=== PATIENT | female | born 1935 | race Caucasian/White ===

== ENCOUNTER 2016-08-10 10:10 | Inpatient (IN) ==
[2016-08-10] MEDS ORDERED: Acetaminophen 325 MG TABLET PO PRN (22:02)
[2016-08-10] MEDS ORDERED: Albuterol 2.5 MG/3 ML NEBULIZER IH PRN (22:02)
[2016-08-10] MEDS ORDERED: MOM Conc 10 ML UD.LIQ PO ONE (22:09)
[2016-08-10] MEDS: Budesonide/Formoterol 80/4.5 MDI IH SCH (22:56)
[2016-08-11 05:33] LABS: Basophils # 0.1 K/mcL (0.0-0.2); Basophils % 0.7 %; Eosinophils # 0.4 K/mcL (0.0-0.6); Eosinophils % 2.6 %; Hemoglobin 10.9 g/dL (11.5-15.4); Immature Granulocytes % 0.4 % (0-4); Lymphocytes # 1.3 K/mcL (0.6-4.6); Lymphocytes % 9.1 %; Mean Corpuscular HGB Conc 34.1 g/dL (31.6-35.5); Mean Corpuscular Hemoglobin 29.1 pg (28.0-33.3); Mean Corpuscular Volume 85.6 fL (83.0-100.0); Mean Platelet Volume 9.8 fL (9.4-12.4); Monocytes # 1.3 K/mcL (0.0-1.3); Monocytes % 8.7 %; Neutrophils # 11.3 K/mcL (1.6-8.9); Platelet Count 432 K/mcL (140-400); Red Blood Count 3.74 M/mcL (3.82-4.97); Segmented Neutrophils % 78.5 %
[2016-08-11 05:41] LABS: Calcium 9.7 mg/dL (8.6-10.8); Potassium 4.2 mEq/L (3.5-4.5)
[2016-08-11] MEDS: Lisinopril 20 MG TABLET PO SCH (08:37)
[2016-08-11] MEDS: hydrALAZINE 25 MG TABLET PO SCH ×3 (08:37→21:02)
[2016-08-11] MEDS: Furosemide 40 MG TABLET PO SCH ×2 (08:37→16:05)
[2016-08-11] MEDS: Aspirin 81 MG TAB.CHEW PO SCH (08:37)
[2016-08-11] MEDS: Cholecalciferol (D-3) 1,000 UNIT TABLET PO SCH (08:37)
[2016-08-11] MEDS: amLODIPine 5 MG TABLET PO SCH (08:37)
[2016-08-11] MEDS: Venlafaxine XR (24 HR) 75 MG CAP.ER.24H PO SCH (08:37)
[2016-08-11] MEDS: BETHANECHOL 10 MG PO SCH ×3 (08:38→21:03)
[2016-08-11] MEDS: Budesonide/Formoterol 80/4.5 MDI IH SCH ×2 (08:39→21:03)
[2016-08-11 11:52] LABS: Bilirubin,Urine Negative (Negative); Blood,Urine Negative (Negative); Clarity,Urine Clear (Clear); Color,Urine Yellow (Yellow); Glucose,Urine (UA) Normal (Normal); Ketones,Urine Negative (Negative); Leukocyte Esterase,Urine Negative (Negative); Nitrite,Urine Negative (Negative); Protein,Urine 100 mg/dL (Neg-Trace); Urobilinogen,Urine Normal (Normal)
[2016-08-11 12:04] LABS: WBC,Urine 0-3 per hpf (0-3)
[2016-08-11 12:05] LABS: Bacteria,Urine Moderate per hpf (None-Few); Squamous Epithelial Cell,Urine Moderate per lpf (None-Few)
--- NOTE | 2016-08-11 16:19 | Internal Med History&Physical ---
Date of Encounter: 08/11/16 Time of Encounter: 16:10 Assessment and Plan (1) Abnormality of gait following cerebrovascular accident Current visit: Yes Status: Acute Patient is having gait abnormality, balance issues, cognitive dysfunction, diplopia from mid brain CVA. She is here for rehabilitation and consult PT, OT , RT, speech therapy, director of social work and Dr. Lowe. Currently she appears to be medically stable. We will continue monitoring her vitals, sugars. She is a tremendous fall risk because of her gait abnormality and she is very impulsive. Chair alarm, bed alarm etc. have been set (2) Internuclear ophthalmoplegia of right eye Current visit: Yes Status: Acute Right eye with medial gaze palsy. She complains of double vision in her central vision and to her left. She thinks it is showing improvement. The findings are relatively subtle on examination. 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 She did not know when she was admitted, she did not know the year, she did not know the season, etc. She did remember being at [facility] after some cueing. She did remember that she had a CVA but not much of a historian otherwise. We will have speech therapy evaluate her as well. We will have to be cognizant of safety issues and cueing considering her plans to go home (4) COPD (chronic obstructive pulmonary disease) Current visit: Yes Status: Acute She has severe COPD apparently is a continued tobacco user. She has hospice care at home apparently for for COPD. Currently her pulmonary status is stable. She is oxygen dependent. Qualifiers: COPD type: unspecified COPD Qualified Code(s): J44.9 - Chronic obstructive pulmonary disease, unspecified (5) Chronic kidney disease (CKD) Current visit: Yes Status: Acute She has mild chronic kidney disease, recent acute kidney injury. We will follow. We will watch her fluid intake. Qualifiers: Chronic kidney disease stage: stage 3 (moderate) Qualified Code(s): N18.3 - Chronic kidney disease, stage 3 (moderate) (6) Hypertension Current visit: Yes Status: Acute She has a long-standing history of hypertension, she had extreme elevated blood pressures when she had her CVA. Her pressures are now normalized with her current medical regimen. Hydralazine was added as well at [facility]. We will watch for orthostatic hypotension. Qualifiers: Hypertension type: essential hypertension Qualified Code(s): I10 - Essential (primary) hypertension (7) Diabetes mellitus Current visit: Yes Status: Acute She has a history of diabetes mellitus and takes metformin. That was not listed on her discharge information. We will monitor her sugars as right now as we do not know how well her intake will be. With her acute kidney injury we will hold metformin anyway. Qualifiers: Diabetes mellitus type: type 2 Diabetes mellitus complication status: with neurologic complications Diabetes mellitus complication detail: with other neurological complication Diabetes mellitus retirement insulin use: without paint and table edger use Qualified Code(s): E11.49 - Type 2 diabetes mellitus with other diabetic neurological complication (8) Urinary incontinence Current visit: Yes Status: Acute She has been having urinary incontinence, the nurse reports that the family states she had this at home as well. She came to us on bethanechol, I am concerned about potential side effects because of her age and recent CVA. We will monitor her, bladder scanning when necessary, frequent toileting etc. Qualifiers: Urinary Incontinence type: urinary incontinence without sensory awareness Qualified Code(s): N39.42 - Incontinence without sensory awareness (9) Anemia Current visit: Yes Status: Acute Her hemoglobin dropped 2 g from her baseline. We will monitor. No obvious source of hemorrhage, melena, hematochezia etc. Qualifiers: Anemia type: unspecified type Qualified Code(s): D64.9 - Anemia, unspecified (10) DVT prophylaxis Current visit: Yes Status: Acute Because she will be relatively confined to bed or chair at times, we will arrange Lovenox for DVT prophylaxis in addition to early ambulation and elastic stockings Internal Medicine - H&P: HPI Chief complaint: I am here to get stronger from my stroke Admitted From: Hospital to Hospital Transfer Plans for Post Hospital Care: Home History of present illness: Ms. Zendejas is a 80 year old female who lives at home, has [facility] because of end-stage COPD. Apparently she was well until a 08/01/16 when she had recurrent falling episodes at home and complaints of double vision and headache. She was evaluated in the emergency room and was found to have diplopia with involvement of the right medial rectus with inability for leftward gaze in the right eye. CT scan apparently was negative and she was sent to [facility] for further evaluation and neurological consultation. On MRI she was found to have a right mid brain ischemic area that was thought to be contributing to the right medial rectus palsy. From the records it appears that she had so much double vision and nausea and vertiginous symptoms that she could barely be evaluated. According to the records she had an echo with 65-70% ejection fraction with abnormal diastolic filling, carotids were 1-49%, hemoglobin A1c 5.6, lipid panel cholesterol 189, LDL 128. They started her on aspirin and Lipitor that was added to her usual regimen of medications. She was evaluated by ophthalmology who recommended an eye patch and possible prisms as an outpatient if her symptoms do not resolve. On arrival she had elevated blood pressure of 224/69 which improved with her home medications and the addition of hydralazine. She has some urinary retention and had straight catheter if greater than 400 mL and they started bethanechol. She had stage III CKD the creatinine 1.3. She has end-stage COPD and chronic respiratory failure and is on home oxygen. Apparently there is a history of chronic systolic congestive heart failure which is compensated and the continued her Lasix. She had fallen at home and had abrasions and bruises particular to the bilateral forearms, the right worse the left and painful right lateral rib area. She worked with physical therapy and needed assistance with ambulation, ADLs with dressing etc. Patient was transferred to our facility late on Saturday evening from [facility]. Patient is a poor historian and does not recall that she had been [facility] until reminded. She does not know the season nor the year. She thinks her double vision is getting improved. She denies any other major acute symptoms. Please see the review of systems below. Past Med Surg Social Fam HX - Past Medical History Medical history: CHF, COPD, coronary artery disease, CVA, diabetes, hyperlipidemia, hypertension Psychiatric history: anxiety, depression - Social History Smoking Status: Current every day smoker Smokeless Tobacco Status: No Alcohol use: none Drug use: none Current living situation: With Family, Other (She has [facility] due to her end-stage COPD) Activity Level: Independent ambulation (At home by history, now she is not independent) - Family History Mother History Unknown: Yes (Patient not reliable for history) Father History Unknown: Yes Internal Medicine - H&P: Meds Albuterol Neb [Proventil Neb] 2.5 mg IH Q4HR PRN 05/23/17 [History] Budesonide/Formoterol 80/4.5 [Symbicort 80/4.5] 0 gm IH BIDR 07/31/16 [History] Cholecalciferol (Vitamin D3) [Vitamin D] 400 unit PO DAILY 07/31/16 [History] Furosemide [Lasix] 80 mg PO BID 07/31/16 [History] LORazepam [Ativan] 0.5 mg PO TID PRN 07/31/16 [History] Lisinopril [Zestril] 40 mg PO DAILY 07/31/16 [History] Montelukast [Singulair] 10 mg PO DAILY 07/31/16 [History] Venlafaxine XR (24 HR) [Effexor XR] 75 mg PO DAILY 07/31/16 [History] amLODIPine [Norvasc] 10 mg PO DAILY 07/31/16 [History] Acetaminophen [Non-Aspirin] 650 mg PO Q4HR PRN 08/10/16 [History] Aspirin 81 mg PO DAILY 08/10/16 [History] Atorvastatin [Lipitor] 40 mg PO HS 08/10/16 [History] Bethanechol [Urecholine] 10 mg PO TID 08/10/16 [History] Metoprolol Tartrate 25 mg PO BID 08/10/16 [History] Polyethylene Glycol 3350 [MiraLAX Powder Bulk 17.9 Oz] 17 gm PO DAILY 08/10/16 [ History] hydrALAZINE [HydrALAZINE] 50 mg PO TID 08/10/16 [History] Allergies prednisone Allergy (Verified 08/10/16 21:44) See Comments - Constitutional Constitutional: falls (She had falling episodes at home and showed me healing ecchymotic areas and abrasions about each forearm.), no fever(s) - EENT Eyes: diplopia (She states that she has double vision seeing me straight in front of her and to her left, it seems appropriate to the right side. Overall she thinks it is getting better.) Ears: no decreased hearing, no ear discharge, no ear pain Nose, mouth and throat: no mouth pain, no sinus pain Additional comments: She is missing all but 2 teeth. She has dentures but does not wear them. - Cardiovascular Cardiovascular ROS IM: no chest pain, no dyspnea on exertion, no lightheadedness , no palpitations, no syncope - Respiratory Respiratory: dyspnea (She states she wears oxygen if she gets short of breath at home. (The family states she uses it 24 hours per day)), no cough, no wheezing - Gastrointestinal Gastrointestinal: no abdominal pain, no constipation, no diarrhea, no melena, no vomiting - Genitourinary Genitourinary: no dysuria, no hematuria Additional comments: Family reported to the nurse that she does have incontinence at home as well. - Musculoskeletal Musculoskeletal ROS IM: no arthralgias, no limited range of motion - Integumentary Additional comments: She showed me healing abrasions and scabs and ecchymosis to each forearm. - Neurological Additional comments: She complains of her double vision, but she states it is getting better. She denies any troubles with her gait, but obviously during examination she has a gait abdomen belly. - Psychiatric Psychiatric: no confusion, no depression Additional comments: She denies any memory loss but obviously she has deficits as in the H PI and physical examination - Constitutional Vitals: Temp Pulse Resp BP Pulse Ox 98.1 F 87 16 133/60 96 08/11/16 11:00 08/11/16 14:11 08/11/16 14:11 08/11/16 14:11 08/11/16 14:11 General appearance: Present: A&O X 2, obese. Absent: answers questions appropriately Exam: Patient was sitting in a chair watching TV. She does not know the season, the year, date of admission. - Head Head exam: Present: atraumatic - Eye Additional comments: Pupils are small bilaterally. She has a mild right medial rectus palsy with difficulty with right eye gaze to the left, she complains of double vision in her center and left vision she had mild nystagmus with the left eye on gaze testing - ENT Additional comments: Right TM is obscured with cerumen, left is normal - Neck Neck exam general surgery: Absent: lymphadenopathy, tenderness, thyromegaly Additional comments: I did not appreciate any bruits - Respiratory Additional comments: Intermittent large airway congestion sounds, otherwise lung quintana are diminished but clear. No crackles or rales. - Cardiovascular Cardiovascular exam: Present: RRR, +S1, +S2, systolic murmur (2/6 systolic murmur heard over the aortic valve region) - GI/Abdominal GI/Abdominal exam: Present: soft, no peritoneal signs. Absent: mass, splenomegaly, tenderness Additional comments: She had mild tenderness in the extreme right flank area and lower rib cage without crepitus or mass or guarding or rebound rigidity - Extremities Exam Extremities exam: Absent: calf tenderness, mottling, pedal edema - Neurological Exam Neurological exam: Present: abnormal gait (She has a very wide based unsteady gait when ambulated.), alert, strengths equal and symetr throughout. Absent: speech deficit Additional comments: Right eye with left gaze palsy consistent with medial rectus palsy. Diplopia reported at center vision and to her left side on gaze testing. Intermittently it appeared she had some nystagmus with the left eye on left gaze testing. Intermittently she had a mild tremor. She cannot recall her date with much hesitation. She thinks it is the fall instead of summer, she thinks it is 1913 instead of 2016, she did not know she was admitted to the hospital last night. She does recall her address. - Psychiatric Psychiatric exam: Present: normal affect, normal mood - Skin Additional comments: Scabbed abrasions and superficial lacerations of both forearms, the right worse than the left. Some minor bruising noted as well. Internal Med - H&P Results - Labs CBC & Chem 7: 08/11/16 05:20 08/11/16 05:20 Labs: Short CBC 08/11/16 Range/Units 05:20 WBC 14.4 H (4.3-11.1) K/mcL Hgb 10.9 L (11.5-15.4) g/dL Hct 32.0 L (35.3-44.9) % Plt Count 432 H (140-400) K/mcL Neutrophils # 11.3 H (1.6-8.9) K/mcL BMP 08/11/16 05:20 Sodium 137 Potassium 4.2 Chloride 98 Carbon Dioxide 26 BUN 59 H Creatinine 1.48 H Glucose 160 H Calcium 9.7 Urine 08/11/16 Range/Units 11:40 Urine Color Yellow (Yellow) Urine Clarity Clear (Clear) Urine pH 5.0 (5.0-8.0) pH Units Ur Specific [place] 1.010 (1.010-1.025) Urine Protein 100 H (Neg-Trace) mg/dL Urine Glucose (UA) Normal (Normal) mg/dL Labs have been reviewed with mild leukocytosis, mild anemia compared to her baseline and and worsening of her chronic kidney disease previous baseline was 1.3 at [facility]. She has proteinuria. Her last glycohemoglobin was 6.5%. - VTE Documentation of Mechanical Device: Graduated compression elastic hosiery
[2016-08-11] MEDS: *HR* LORazepam 0.5 MG TABLET PO PRN (21:03)
[2016-08-12] MEDS: *HR* Enoxaparin 30 MG/0.3 ML SYRINGE SQ SCH (06:22)
[2016-08-12] MEDS: Lisinopril 20 MG TABLET PO SCH (09:13)
[2016-08-12] MEDS: hydrALAZINE 25 MG TABLET PO SCH ×3 (09:13→20:36)
[2016-08-12] MEDS: amLODIPine 5 MG TABLET PO SCH (09:15)
[2016-08-12] MEDS: Aspirin 81 MG TAB.CHEW PO SCH (09:16)
[2016-08-12] MEDS: BETHANECHOL 10 MG PO SCH ×3 (09:16→20:37)
[2016-08-12] MEDS: Cholecalciferol (D-3) 1,000 UNIT TABLET PO SCH (09:16)
[2016-08-12] MEDS: Venlafaxine XR (24 HR) 75 MG CAP.ER.24H PO SCH (09:16)
[2016-08-12] MEDS: Furosemide 40 MG TABLET PO SCH ×2 (09:16→16:23)
[2016-08-12] MEDS: Budesonide/Formoterol 80/4.5 MDI IH SCH ×2 (09:17→20:37)
--- NOTE | 2016-08-12 13:39 | Internal Med Progress Note ---
Date of Encounter: 08/12/16 Time of Encounter: 13:26 - Assessment and plan (1) Abnormality of gait following cerebrovascular accident Current Visit: Yes Status: Acute Assessment and plan: She is needing constant reminders and assistance with ambulation. PT and OT resumes tomorrow. (2) Internuclear ophthalmoplegia of right eye Current Visit: Yes Status: Acute Assessment and plan: She denies any double vision now. It is hard to evaluate her visual quintana and range of motion of her eyes as she does not always follow commands. Her horizontal gaze today appears to be intact though. Decreased elevation of the right eye with upward gaze. No subjective symptoms of dizziness or problems. She was evaluated by manager pricing who suggested a patch until she is better, but she appears to be improving significantly. 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 It was reported from the daughter to the nurse yesterday that the severity of these is worse since her stroke. (4) COPD (chronic obstructive pulmonary disease) Current Visit: Yes Status: Acute Assessment and plan: I believe we need to be more aggressive with routine pulmonary toilet with nebulizer treatments 4 times a day and every 4 hours when necessary. The order was suggested. I do not think she needs a chest x-ray at this point yet. Qualifiers: COPD type: unspecified COPD Qualified Code(s): J44.9 - Chronic obstructive pulmonary disease, unspecified (5) Chronic kidney disease (CKD) Current Visit: Yes Status: Acute Assessment and plan: Follow-up renal function testing tomorrow. Qualifiers: Chronic kidney disease stage: stage 3 (moderate) Qualified Code(s): N18.3 - Chronic kidney disease, stage 3 (moderate) (6) Hypertension Current Visit: Yes Status: Acute Assessment and plan: She has had one elevated blood pressure reading in the 160 range systolic. We will continue to monitor. Qualifiers: Hypertension type: essential hypertension Qualified Code(s): I10 - Essential (primary) hypertension (7) Diabetes mellitus Current Visit: Yes Status: Acute Assessment and plan: Her sugars have been under reasonable control even without medication. We are holding her metformin because of her elevated creatinine and also not knowing how well she is going to eat. Her glycohemoglobin was reportedly 5.6% at [facility] and 6.5% recently tested here. Qualifiers: Diabetes mellitus type: type 2 Diabetes mellitus complication status: with neurologic complications Diabetes mellitus complication detail: with other neurological complication Diabetes mellitus termite exterminator insulin use: without prison use Qualified Code(s): E11.49 - Type 2 diabetes mellitus with other diabetic neurological complication (8) Urinary incontinence Current Visit: Yes Status: Acute Assessment and plan: During the daytime she is continent of urine. We will continue to monitor. Residual after voiding 116. Family reported she has had incontinence at home as well. Qualifiers: Urinary Incontinence type: urinary incontinence without sensory awareness Qualified Code(s): N39.42 - Incontinence without sensory awareness (9) Anemia Current Visit: Yes Status: Acute Assessment and plan: Follow-up CBC planned for tomorrow Qualifiers: Anemia type: unspecified type Qualified Code(s): D64.9 - Anemia, unspecified (10) DVT prophylaxis Current Visit: Yes Status: Acute - Subjective Interval history: Patient is voicing no acute symptoms, but she is also not a very good historian. The nurse reported that the patient had a bowel movement today, and then she was incontinent with a liquid stool on the second bowel movement and she could not get there in time. She has been incontinent of urine during the daytime so far today, but she frequently will forget to ask for help to get up in the bed alarm goes off. She was walked with her walker to the break room for breakfast and lunch. She relates with the walker she likes to lean her elbows on the walker rather than standing upright in the lots of cueing. When she goes to sit down she turns herself completely around before going down into the chair rather than a short quick easy turn and sit. She denies any vision problems/double vision currently. She denies a chest pain, palpitations, breathing problems. She really does not have any complaints right now, but I am not sure that she is cognitively aware either. She was incontinent in the night. Her bladder scan was 116 mL's after recent voiding - Constitutional Vitals: Temp Pulse Resp BP Pulse Ox 98.5 F 68 16 165/66 95 08/12/16 07:38 08/12/16 07:38 08/12/16 07:38 08/12/16 07:38 08/12/16 07:38 General appearance: Present: A&O X 2, no acute distress, obese. Absent: answers questions appropriately - Eye Additional comments: Her gaze appears to be conjugate horizontally. The right eye does not elevate well with upward gaze. It is difficult to evaluate as she does not always follow command of following my finger during testing. - Respiratory Additional comments: Large airway congested sounds scattered throughout. Slight intermittent wheezing. No localized crackles. - Cardiovascular Additional comments: Distant heart tones S1-S2 1/6 systolic murmur heard best over the aortic outlet. - GI/Abdominal GI/Abdominal exam: Present: soft. Absent: tenderness - Extremities Exam Extremities exam: Absent: calf tenderness, pedal edema, tenderness Internal Medicine: Result - Labs CBC & Chem 7: 08/11/16 05:20 08/11/16 05:20 - VTE Documentation of Mechanical Device: Graduated compression elastic hosiery Consult Discharge Plan - Plan Referrals: Jaren Coburn MD [Primary Care Provider] -
[2016-08-12] MEDS: Albuterol 2.5 MG/3 ML NEBULIZER IH SCH ×3 (13:42→20:36)
[2016-08-12] MEDS: *HR* LORazepam 0.5 MG TABLET PO PRN (20:36)
[2016-08-13 05:42] LABS: Basophils # 0.1 K/mcL (0.0-0.2); Basophils % 0.8 %; Eosinophils # 0.4 K/mcL (0.0-0.6); Eosinophils % 2.9 %; Hemoglobin 10.8 g/dL (11.5-15.4); Immature Granulocytes % 0.5 % (0-4); Lymphocytes # 1.8 K/mcL (0.6-4.6); Lymphocytes % 12.6 %; Mean Corpuscular HGB Conc 33.8 g/dL (31.6-35.5); Mean Corpuscular Hemoglobin 29.3 pg (28.0-33.3); Mean Corpuscular Volume 86.7 fL (83.0-100.0); Monocytes # 1.3 K/mcL (0.0-1.3); Monocytes % 9.3 %; Neutrophils # 10.5 K/mcL (1.6-8.9); Platelet Count 466 K/mcL (140-400); Red Blood Count 3.69 M/mcL (3.82-4.97); Red Cell Distribution Width 14.1 % (11.5-14.5); Segmented Neutrophils % 73.9 %
[2016-08-13 05:55] LABS: Calcium 9.3 mg/dL (8.6-10.8); Potassium 4.3 mEq/L (3.5-4.5)
[2016-08-13] MEDS: *HR* Enoxaparin 30 MG/0.3 ML SYRINGE SQ SCH (05:57)
--- NOTE | 2016-08-13 07:09 | Internal Med Progress Note ---
Date of Encounter: 08/13/16 Time of Encounter: 07:09 - Assessment and plan (1) Abnormality of gait following cerebrovascular accident Current Visit: Yes Status: Acute Assessment and plan: She will resume PT and OT today. The nursing staff thought that she is improved since her admission. She has on a bed alarm. She needs help with ambulation. (2) Internuclear ophthalmoplegia of right eye Current Visit: Yes Status: Acute Assessment and plan: I did not check her eyes today. She does not seem to have any complaints of dizziness or nausea. She is sleepy and not very cooperative early this morning. (3) Cognitive deficit due to recent cerebrovascular accident (CVA) Current Visit: Yes Status: Acute Assessment and plan: She has cognitive deficits, she does not know how many days she has been here, etc. I do not know what her baseline is, but family had told one of the nurses that this is worse than usual. She seems stable since admission. She needs lots of cueing and reminders. (4) COPD (chronic obstructive pulmonary disease) Current Visit: Yes Status: Acute Assessment and plan: She seems to have some large airway congestion, partially clears with deep breathing or cough. Because of her elevated white blood cell count and history of COPD I am going to get a chest x-ray to be sure she does not have pneumonia. Her saturations are adequate with wearing oxygen 24 hours per day. Qualifiers: COPD type: unspecified COPD Qualified Code(s): J44.9 - Chronic obstructive pulmonary disease, unspecified (5) Chronic kidney disease (CKD) Current Visit: Yes Status: Acute Assessment and plan: Chronic kidney disease with acute kidney injury. Her creatinine continues to rise. The nursing staff states she is taking plenty of water. We are avoiding nephrotoxins. She may need some IV fluids if this is prerenal. I suspect this is related to her initial insult and studies at [place]. I believe she was seen by nephrology there. Qualifiers: Chronic kidney disease stage: stage 3 (moderate) Qualified Code(s): N18.3 - Chronic kidney disease, stage 3 (moderate) (6) Hypertension Current Visit: Yes Status: Acute Assessment and plan: Intermittently her blood pressure is in the 150-160 range systolic, others are controlled. Will continue to monitor. Qualifiers: Hypertension type: essential hypertension Qualified Code(s): I10 - Essential (primary) hypertension (7) Diabetes mellitus Current Visit: Yes Status: Acute Assessment and plan: Her sugars are under reasonable control without medication. Her metformin has been held because of her renal function. She has had a good glycohemoglobin. Will follow. Qualifiers: Diabetes mellitus type: type 2 Diabetes mellitus complication status: with neurologic complications Diabetes mellitus complication detail: with other neurological complication Diabetes mellitus intermediate card tender insulin use: without shelter use Qualified Code(s): E11.49 - Type 2 diabetes mellitus with other diabetic neurological complication (8) Urinary incontinence Current Visit: Yes Status: Acute Assessment and plan: She continues with nighttime urinary incontinence. She is continent during the day. Apparently this is not a new problem. Qualifiers: Urinary Incontinence type: urinary incontinence without sensory awareness Qualified Code(s): N39.42 - Incontinence without sensory awareness (9) Anemia Current Visit: Yes Status: Acute Assessment and plan: She had a drop in hemoglobin when admitted, but is stable. No signs of hemorrhage. Will monitor. May be related to renal function. Qualifiers: Anemia type: unspecified type Qualified Code(s): D64.9 - Anemia, unspecified (10) DVT prophylaxis Current Visit: Yes Status: Acute - Subjective Interval history: Patient was awakened this morning, she denies any acute problems but she is slow to respond to questions. She denies any chest pain, palpitation, shortness of breath, abdominal pain. The nurses report that she was incontinent through the night of urine several times. They state she rested well though. Her blood sugars have been starting to go up a bit but was only 155 on fasting blood work this morning. Creatinine continues to rise. - Constitutional Vitals: Temp Pulse Resp BP Pulse Ox 98.9 F 74 20 124/51 91 08/12/16 19:21 08/12/16 19:21 08/12/16 19:21 08/12/16 19:21 08/12/16 19:21 General appearance: Present: A&O X 2, no acute distress, obese. Absent: answers questions appropriately Exam: She is sleepy and seems "stunned" this morning when we awoke her. She is in no distress, she is just not very interactive - Eye Additional comments: I did not evaluate her visual quintana or eyes this morning as she was sleepy and not very cooperative. She did not appear to be dizzy. - Respiratory Additional comments: Intermittent scattered mid lung field congested sounds, clears with deep breathing. She does have some audible crackles. Bases are diminished. No respiratory distress. Intermittent slight wheezes. - Cardiovascular Additional comments: Regular rate and rhythm. Distal heart tones S1, S2 with 1/6 systolic murmur. - GI/Abdominal GI/Abdominal exam: Present: soft. Absent: tenderness - Extremities Exam Extremities exam: Absent: calf tenderness, pedal edema Internal Medicine: Result - Labs CBC & Chem 7: 08/13/16 05:15 08/13/16 05:15 Labs: Short CBC 08/13/16 Range/Units 05:15 WBC 14.2 H (4.3-11.1) K/mcL Hgb 10.8 L (11.5-15.4) g/dL Hct 32.0 L (35.3-44.9) % Plt Count 466 H (140-400) K/mcL Neutrophils # 10.5 H (1.6-8.9) K/mcL BMP 08/13/16 05:15 Sodium 140 Potassium 4.3 Chloride 101 Carbon Dioxide 28 BUN 61 H Creatinine 1.72 H Glucose 155 H Calcium 9.3 Labs have been reviewed. White blood count still elevated in the 14,000 range. Hemoglobin is stable. Her creatinine however is rising to 1.7 to now. Glucose mildly elevated. - VTE Documentation of Mechanical Device: Graduated compression elastic hosiery Consult Discharge Plan - Plan Referrals: Jaren Coburn MD [Primary Care Provider] -
[2016-08-13] MEDS: Cholecalciferol (D-3) 1,000 UNIT TABLET PO SCH (08:45)
[2016-08-13] MEDS: Venlafaxine XR (24 HR) 75 MG CAP.ER.24H PO SCH (08:45)
[2016-08-13] MEDS: hydrALAZINE 25 MG TABLET PO SCH ×3 (08:45→19:59)
[2016-08-13] MEDS: Aspirin 81 MG TAB.CHEW PO SCH (08:45)
[2016-08-13] MEDS: amLODIPine 5 MG TABLET PO SCH (08:45)
[2016-08-13] MEDS: BETHANECHOL 10 MG PO SCH ×2 (08:46→15:17)
[2016-08-13] MEDS: Albuterol 2.5 MG/3 ML NEBULIZER IH SCH ×4 (08:46→19:58)
[2016-08-13] MEDS: Furosemide 40 MG TABLET PO SCH ×2 (08:46→16:47)
[2016-08-13] MEDS: Budesonide/Formoterol 80/4.5 MDI IH SCH ×2 (08:47→20:01)
[2016-08-13] MEDS: *HR* LORazepam 0.5 MG TABLET PO PRN (19:59)
[2016-08-14] MEDS: *HR* Enoxaparin 30 MG/0.3 ML SYRINGE SQ SCH (05:34)
[2016-08-14 05:43] LABS: Basophils # 0.1 K/mcL (0.0-0.2); Basophils % 0.6 %; Eosinophils # 0.5 K/mcL (0.0-0.6); Hematocrit 33.5 % (35.3-44.9); Hemoglobin 11.3 g/dL (11.5-15.4); Immature Granulocytes % 0.5 % (0-4); Lymphocytes # 2.1 K/mcL (0.6-4.6); Lymphocytes % 13.6 %; Mean Corpuscular HGB Conc 33.7 g/dL (31.6-35.5); Mean Corpuscular Hemoglobin 29.3 pg (28.0-33.3); Mean Corpuscular Volume 86.8 fL (83.0-100.0); Mean Platelet Volume 9.2 fL (9.4-12.4); Monocytes # 1.4 K/mcL (0.0-1.3); Monocytes % 9.2 %; Neutrophils # 11.3 K/mcL (1.6-8.9); Platelet Count 557 K/mcL (140-400); Red Blood Count 3.86 M/mcL (3.82-4.97); Red Cell Distribution Width 14.1 % (11.5-14.5); Segmented Neutrophils % 73.1 %
[2016-08-14 05:52] LABS: Calcium 9.5 mg/dL (8.6-10.8); Potassium 4.4 mEq/L (3.5-4.5)
[2016-08-14] MEDS: Aspirin 81 MG TAB.CHEW PO SCH (08:23)
[2016-08-14] MEDS: Furosemide 40 MG TABLET PO SCH ×2 (08:23→16:24)
[2016-08-14] MEDS: Cholecalciferol (D-3) 1,000 UNIT TABLET PO SCH (08:23)
[2016-08-14] MEDS: amLODIPine 5 MG TABLET PO SCH (08:23)
[2016-08-14] MEDS: Venlafaxine XR (24 HR) 75 MG CAP.ER.24H PO SCH (08:24)
[2016-08-14] MEDS: hydrALAZINE 25 MG TABLET PO SCH ×3 (08:24→20:29)
[2016-08-14] MEDS: Albuterol 2.5 MG/3 ML NEBULIZER IH SCH ×4 (08:25→20:28)
[2016-08-14] MEDS: Budesonide/Formoterol 80/4.5 MDI IH SCH ×2 (08:32→20:31)
--- NOTE | 2016-08-14 18:49 | Internal Med Progress Note ---
Date of Encounter: 08/14/16 Time of Encounter: 18:44 - Assessment and plan (1) Abnormality of gait following cerebrovascular accident Current Visit: Yes Status: Acute Assessment and plan: She appears to be improving based on my findings. Continue with PT and OT. PM& R/Dr. Lowe will see her tomorrow. (2) Internuclear ophthalmoplegia of right eye Current Visit: Yes Status: Acute Assessment and plan: Does not seem to complain of any dizziness, double vision, no obvious gaze abnormality on cursory exam. 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 I did not do a Mini-Mental Status Examination today. She has stayed awake longer today. She participated a lot in therapy. (4) COPD (chronic obstructive pulmonary disease) Current Visit: Yes Status: Acute Assessment and plan: Her COPD is stable and oxygen dependent. Saturations dropped to about 90 with exercise. Qualifiers: COPD type: unspecified COPD Qualified Code(s): J44.9 - Chronic obstructive pulmonary disease, unspecified (5) Chronic kidney disease (CKD) Current Visit: Yes Status: Acute Assessment and plan: Renal function is improving. We will follow. Qualifiers: Chronic kidney disease stage: stage 3 (moderate) Qualified Code(s): N18.3 - Chronic kidney disease, stage 3 (moderate) (6) Hypertension Current Visit: Yes Status: Acute Assessment and plan: Intermittently blood pressure is a bit elevated. No change in medication for now. Qualifiers: Hypertension type: essential hypertension Qualified Code(s): I10 - Essential (primary) hypertension (7) Diabetes mellitus Current Visit: Yes Status: Acute Assessment and plan: Her sugars have been adequately controlled without medication. We will continue to follow. Qualifiers: Diabetes mellitus type: type 2 Diabetes mellitus complication status: with neurologic complications Diabetes mellitus complication detail: with other neurological complication Diabetes mellitus longterm insulin use: without longterm use Qualified Code(s): E11.49 - Type 2 diabetes mellitus with other diabetic neurological complication (8) Urinary incontinence Current Visit: Yes Status: Acute Assessment and plan: Still has urinary incontinence at night, apparently this is chronic. Qualifiers: Urinary Incontinence type: urinary incontinence without sensory awareness Qualified Code(s): N39.42 - Incontinence without sensory awareness (9) Anemia Current Visit: Yes Status: Acute Assessment and plan: Hemoglobin improved. No active bleeding noted Qualifiers: Anemia type: unspecified type Qualified Code(s): D64.9 - Anemia, unspecified (10) Leukocytosis Current Visit: Yes Status: Acute Assessment and plan: Mild leukocytosis. No fever. She had negative urinalysis. She has had negative chest x-ray for signs of infection. Clinically she is doing better. We will continue to monitor for source of possible infection. Qualifiers: Leukocytosis type: unspecified Qualified Code(s): D72.829 - Elevated white blood cell count, unspecified (11) DVT prophylaxis Current Visit: Yes Status: Acute - Subjective Interval history: Patient denies any chest pain, palpitations, shortness of breath, she ate well tonight as she likes pot pies. She denies any GI or symptoms acutely. (She does continue with her urinary incontinence at night) She thinks she is getting stronger. She has no new symptoms or concerns that she is aware of - Constitutional Vitals: Temp Pulse Resp BP Pulse Ox 97.8 F 66 16 160/62 94 08/14/16 15:52 08/14/16 15:52 08/14/16 16:20 08/14/16 15:52 08/14/16 16:20 General appearance: Present: A&O X 2, no acute distress, obese - Respiratory Additional comments: Diminished breath sounds. Intermittent end expiratory wheeze. Overall sounds better than yesterday. No respiratory distress. - Cardiovascular Cardiovascular exam: Present: RRR, +S1, +S2, systolic murmur (1 to 2/6 systolic murmur) - GI/Abdominal GI/Abdominal exam: Present: soft. Absent: tenderness - Extremities Exam Extremities exam: Absent: calf tenderness, tenderness - Neurological Exam Additional comments: Patient ambulated with her walker to the door and back without hesitation. However on the turning she was a bit wide-based. When I had her stand without her walker at the bedside she was a bit wobbly. Overall much improved from Saturday. Internal Medicine: Result - Labs CBC & Chem 7: 08/14/16 05:30 08/14/16 05:30 Labs: Short CBC 08/14/16 Range/Units 05:30 WBC 15.5 H (4.3-11.1) K/mcL Hgb 11.3 L (11.5-15.4) g/dL Hct 33.5 L (35.3-44.9) % Plt Count 557 H (140-400) K/mcL Neutrophils # 11.3 H (1.6-8.9) K/mcL BMP 08/14/16 05:30 Sodium 141 Potassium 4.4 Chloride 101 Carbon Dioxide 29 BUN 50 H D Creatinine 1.53 H Glucose 143 H Calcium 9.5 White blood cell count is up from 14. Her renal function is improved. - VTE Documentation of Mechanical Device: Graduated compression elastic hosiery Consult Discharge Plan - Plan Referrals: Jaren Coburn MD [Primary Care Provider] -
[2016-08-14] MEDS: *HR* LORazepam 0.5 MG TABLET PO PRN (20:29)
[2016-08-15] MEDS: *HR* Enoxaparin 30 MG/0.3 ML SYRINGE SQ SCH (05:43)
[2016-08-15] MEDS: amLODIPine 5 MG TABLET PO SCH (09:47)
[2016-08-15] MEDS: Aspirin 81 MG TAB.CHEW PO SCH (09:47)
[2016-08-15] MEDS: Budesonide/Formoterol 80/4.5 MDI IH SCH ×2 (09:47→21:54)
[2016-08-15] MEDS: Venlafaxine XR (24 HR) 75 MG CAP.ER.24H PO SCH (09:47)
[2016-08-15] MEDS: hydrALAZINE 25 MG TABLET PO SCH ×2 (09:47→17:51)
[2016-08-15] MEDS: Furosemide 40 MG TABLET PO SCH ×2 (09:48→17:51)
[2016-08-15] MEDS: Albuterol 2.5 MG/3 ML NEBULIZER IH SCH ×4 (09:48→21:53)
[2016-08-15] MEDS: Cholecalciferol (D-3) 1,000 UNIT TABLET PO SCH (09:48)
--- NOTE | 2016-08-15 10:13 | Internal Med Progress Note ---
Date of Encounter: 08/15/16 Time of Encounter: 09:44 - Assessment and plan (1) Abnormality of gait following cerebrovascular accident Current Visit: Yes Status: Acute Assessment and plan: She appears be showing improvement at least based on my examination. She will continue with PT and OT. She will have evaluation by Dr. Lowe and Dr. Banks today (2) Internuclear ophthalmoplegia of right eye Current Visit: Yes Status: Acute Assessment and plan: Appears to be much improved and no history of double vision or dizziness now. 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 She will be seen by Dr. Banks today (4) COPD (chronic obstructive pulmonary disease) Current Visit: Yes Status: Acute Assessment and plan: Her COPD appears to be stable. Her lungs are clear significantly with a cough. No respiratory distress. Still is requiring oxygen. Qualifiers: COPD type: unspecified COPD Qualified Code(s): J44.9 - Chronic obstructive pulmonary disease, unspecified (5) Chronic kidney disease (CKD) Current Visit: Yes Status: Acute Assessment and plan: Has shown improvement. Follow-up order for tomorrow. Qualifiers: Chronic kidney disease stage: stage 3 (moderate) Qualified Code(s): N18.3 - Chronic kidney disease, stage 3 (moderate) (6) Hypertension Current Visit: Yes Status: Acute Assessment and plan: Under relatively good control. Occasionally her pressure will be up in the 160 systolic range then back down again. We will continue to monitor. Qualifiers: Hypertension type: essential hypertension Qualified Code(s): I10 - Essential (primary) hypertension (7) Diabetes mellitus Current Visit: Yes Status: Acute Assessment and plan: On occasion her sugar has had 200. Generally in the 130s to 150s. This is with no medication. Previously she was on metformin. That has been held because of her renal function and her excellent glycohemoglobin. Qualifiers: Diabetes mellitus type: type 2 Diabetes mellitus complication status: with neurologic complications Diabetes mellitus complication detail: with other neurological complication Diabetes mellitus petroleum terminal plant operator insulin use: without petroleum terminal plant operator use Qualified Code(s): E11.49 - Type 2 diabetes mellitus with other diabetic neurological complication (8) Urinary incontinence Current Visit: Yes Status: Acute Assessment and plan: She is incontinent of urine at nighttime. This is an old problem. Apparently she has been on medication in the past which really did not help. We are trying frequent toileting. Qualifiers: Urinary Incontinence type: urinary incontinence without sensory awareness Qualified Code(s): N39.42 - Incontinence without sensory awareness (9) Anemia Current Visit: Yes Status: Acute Assessment and plan: Hemoglobin has improved. We will recheck tomorrow. Qualifiers: Anemia type: unspecified type Qualified Code(s): D64.9 - Anemia, unspecified (10) Leukocytosis Current Visit: Yes Status: Acute Assessment and plan: She has had mild leukocytosis without obvious source of infection. Follow-up tomorrow. Consideration for CT scan of the lungs but she is not having any fever, increasing pulmonary symptoms or worsening chest x-ray. No skin breakdown issues. Qualifiers: Leukocytosis type: unspecified Qualified Code(s): D72.829 - Elevated white blood cell count, unspecified (11) DVT prophylaxis Current Visit: Yes Status: Acute - Subjective Interval history: Patient denies any acute symptoms. She denies any chest pain, palpitation, shortness of breath. When asked, she thinks her double vision is gone and her vision is okay. She denies having dizzy episodes now. I had a conversation with her daughter last night via phone. She states her mother had the urinary incontinence at home despite use of medication. That does not seem to be any different with or without medication. But she does state that her mother is saying strange things, not remembering things, not being as spontaneous and she was in the past. She had a slow drop off appropriate for age cognitively before, but after the stroke there is been a definite step decline. She realizes that her mother cannot go home. She states that her mother was helping take care of the son who is at home and therefore she is given need 24 hour care. I certainly agree. Daughter is coming in this afternoon to talk with staff and social services analyst regarding placement issues. - Constitutional Vitals: Temp Pulse Resp BP Pulse Ox 98.6 F 81 18 100/55 94 08/15/16 07:15 08/15/16 07:15 08/15/16 07:15 08/15/16 07:15 08/15/16 07:15 General appearance: Present: A&O X 2, no acute distress, obese. Absent: answers questions appropriately - Respiratory Additional comments: She has diminished breath sounds throughout. She had scattered rhonchi and end expiratory wheeze during her respiratory treatment, with a cough these nearly all cleared. She has no respiratory distress. She is still requiring oxygen 24 hours per day though. - Cardiovascular Cardiovascular exam: Present: RRR, +S1, +S2, systolic murmur (2/6 systolic murmur heard best at the outlet.) - Extremities Exam Extremities exam: Absent: calf tenderness, pedal edema - Neurological Exam Additional comments: Her extraocular movements appear to be conjugate except for the extreme left lateral gaze and upward gaze there appears to be slight deficit in the right eye. She denies any dizziness or double vision. She was able to get out of a chair, she ambulated 10 feet or so with a walker. She was slow to make the turn but did not have any imbalance problems. She was able stand without holding onto the walker without any drifting today. Cognitively she does not have much in way of spontaneous interaction. She is not reliable on her answers to questions. Internal Medicine: Result - Labs CBC & Chem 7: 08/14/16 05:30 08/14/16 05:30 - VTE Documentation of Mechanical Device: Graduated compression elastic hosiery Consult Discharge Plan - Plan Referrals: Jaren Coburn MD [Primary Care Provider] -
--- NOTE | 2016-08-15 14:50 | Psychological Evaluation ---
Date of Encounter: 08/15/16 Time of Encounter: 11:00 History of Present Illness History of present illness: Ms. Zendejas is a 80 year old female admitted to [facility] for inpatient rehabilitation following a recent CVA. Ms. Zendejas was living at her home with hospice care for end stage COPD prior to this hospitalization. She was seen on this date to assess her current cognitive and emotional functioning. Past Medical History Medical history: Significant for COPD, chronic kidney disease, HTN, diabetes, CHF, coronary artery disease and hyperlipidemia. - Psychiatric History Additional Psychiatric History: Ms. Zendejas reported that she has been treated for anxiety and depression. There is no history of psychiatric hospitalization and no history of suicidal ideation, intention or past attempt. There is no known family history of psychiatric or mental health issues. Home Medications and Allergies Albuterol Neb [Proventil Neb] 2.5 mg IH Q4HR PRN 07/31/16 [History] Budesonide/Formoterol 80/4.5 [Symbicort 80/4.5] 0 gm IH BIDR 07/31/16 [History] Cholecalciferol (Vitamin D3) [Vitamin D] 400 unit PO DAILY 07/31/16 [History] Furosemide [Lasix] 80 mg PO BID 07/31/16 [History] LORazepam [Ativan] 0.5 mg PO TID PRN 07/31/16 [History] Lisinopril [Zestril] 40 mg PO DAILY 07/31/16 [History] Montelukast [Singulair] 10 mg PO DAILY 07/31/16 [History] Venlafaxine XR (24 HR) [Effexor XR] 75 mg PO DAILY 07/31/16 [History] amLODIPine [Norvasc] 10 mg PO DAILY 07/31/16 [History] Acetaminophen [Non-Aspirin] 650 mg PO Q4HR PRN 08/10/16 [History] Aspirin 81 mg PO DAILY 08/10/16 [History] Atorvastatin [Lipitor] 40 mg PO HS 08/10/16 [History] Bethanechol [Urecholine] 10 mg PO TID 08/10/16 [History] Metoprolol Tartrate 25 mg PO BID 08/10/16 [History] Polyethylene Glycol 3350 [MiraLAX Powder Bulk 17.9 Oz] 17 gm PO DAILY 08/10/16 [ History] hydrALAZINE [HydrALAZINE] 50 mg PO TID 08/10/16 [History] Allergies prednisone Allergy (Verified 08/10/16 21:44) See Comments Social History - Social History Social History: Ms. Zendejas is a (since 2012) after 27 years of marriage to her second . She had 5 children but stated that only one son and one daughter are alive at this time. Her son lives with her and she reported that he is disabled due to balance/gait issues. Her social support system consists of two friends. 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 She also stated that she was not afraid of taking risks and has jumped out of planes with a parachute. Prior to this admission, her typical day consisted of washing dishes, watching TV, reading and preparing dinner. - Tobacco Use Smoking Status: Current every day smoker - Alcohol Use Alcohol Use: none Cognitive/Emotional Assessment - Cognitive Ability Additional Findings: Ms. Zendejas was alert, attentive and partially oriented. She was oriented for person and place but not time (gave the month as June or July and could not guess/provide a date). Performance on measures of immediate recall, attention/ concentration, sentence repetition and confrontational naming were in the average range. She was able to perform 2-step complex command and verbal reasoning and social judgment were within normal limits. On a measure of delayed verbal recall, she performed in the moderately impaired range. Her performance was improved using multiple choice (recognition cues) but she stated that she did not recognize any of the words and was simply guessing. - Emotional Status Additional Findings: Ms. Zendejas was cooperative but presented as somewhat irritable and defensive. She asked about the purpose/necessity of this evaluation and when it was explained, she acknowledged that she feels her intelligence is being questioned. She reported that people are not "treating me right" and "are not explaining what is going on". Mood appeared depressed. She reported a poor appetite and that her sleep has been disrupted by nursing staff awakening her during the night. 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 Zendejas will be followed as needed while she is an inpatient at [facility] to provide emotional supportive counseling. Procedures - Session Time Session Start Time: 11:00 Session Stop Time: 11:30
--- NOTE | 2016-08-15 15:09 | Physcial Medicine-Consult Note ---
Date of Encounter: 08/16/16 Time of Encounter: 15:06 Physical Medicine - AP (1) CVA (cerebral vascular accident) Status: Acute Assessment and plan: 1. Ms. Zendejas's primary barriers at this time are due to her cognitive deficits. She has significant issues with short and mcc recall. She has prolonged processing time to perform new tasks which also impairs her functional ability. She has made improvement in her functional status and is currentlu ambulating 100 feet with CGA. She has poor safety awareness. She is currently mod A for lower body dressing and ADLs. She will continue with PT/OT/ ST/TR to continue to address issues with safety and cognition. Recommend 24 hour supervision at discharge. Code(s): I63.9 - Cerebral infarction, unspecified SNOMED Code(s): 964279928 Physical Medicine - HPI - Data of Consult Consult date: 08/15/16 Requesting Physician: Jaren Coburn MD Primary Care Provider: Jaren Coburn MD - Consult Narrative Reason for consult: CVA History of present illness: Ms. Zendejas is a 80 year old female who presented to the ED with complaints of falls, double vision and headache. An intial head CT was negative. She was transferred to [facility] and was found to be suffering from severe vertigo with nausea and vomiting. Initial evaluation revealed diplopia in the right eye with leftward gaze. An mri of her brain was performed which revealed an area of mid brain ischemia. She was stabilized and transferred for inpatient rehabilitation. Patient was previously at home with hospice due to end stage COPD. CC: Jaren Coburn MD Past Med Surg Social Fam HX - Past Medical History Medical history: CHF, COPD, coronary artery disease, CVA, diabetes, hyperlipidemia, hypertension Psychiatric history: anxiety, depression - Social History Smoking Status: Current every day smoker Smokeless Tobacco Status: No Alcohol use: none Drug use: none - Family History Mother History Unknown: Yes (Patient not reliable for history) Father History Unknown: Yes Medications and Allergies Albuterol Neb [Proventil Neb] 2.5 mg IH Q4HR PRN 07/31/16 [History] Budesonide/Formoterol 80/4.5 [Symbicort 80/4.5] 0 gm IH BIDR 07/31/16 [History] Cholecalciferol (Vitamin D3) [Vitamin D] 400 unit PO DAILY 07/31/16 [History] Furosemide [Lasix] 80 mg PO BID 07/31/16 [History] LORazepam [Ativan] 0.5 mg PO TID PRN 07/31/16 [History] Lisinopril [Zestril] 40 mg PO DAILY 07/31/16 [History] Montelukast [Singulair] 10 mg PO DAILY 07/31/16 [History] Venlafaxine XR (24 HR) [Effexor XR] 75 mg PO DAILY 07/31/16 [History] amLODIPine [Norvasc] 10 mg PO DAILY 07/31/16 [History] Acetaminophen [Non-Aspirin] 650 mg PO Q4HR PRN 08/10/16 [History] Aspirin 81 mg PO DAILY 08/10/16 [History] Atorvastatin [Lipitor] 40 mg PO HS 08/10/16 [History] Bethanechol [Urecholine] 10 mg PO TID 08/10/16 [History] Metoprolol Tartrate 25 mg PO BID 08/10/16 [History] Polyethylene Glycol 3350 [MiraLAX Powder Bulk 17.9 Oz] 17 gm PO DAILY 08/10/16 [ History] hydrALAZINE [HydrALAZINE] 50 mg PO TID 08/10/16 [History] Allergies prednisone Allergy (Verified 08/10/16 21:44) See Comments - Constitutional Constitutional: Absent: anorexia, chills - Cardiovascular Cardiovascular: Present: dyspnea on exertion. Absent: chest pain, chest pain with activity - Respiratory Respiratory: Present: dyspnea, dyspnea on exertion - Gastrointestinal Gastrointestinal: Absent: abdominal pain - Genitourinary Genitourinary: Absent: difficulty urinating - Musculoskeletal Musculoskeletal: Absent: arthralgias - Neurological Neurological: Absent: dizziness, focal weakness, headache(s) - Psychiatric Psychiatric: Present: confusion Physical Medicine - Exam - Constitutional Vitals: Temp Pulse Resp BP Pulse Ox 98.6 F 81 18 100/55 94 08/15/16 07:15 08/15/16 07:15 08/15/16 07:15 08/15/16 07:15 08/15/16 07:15 General appearance: cooperative, no acute distress Exam: Patient is alert, poor short term recall. Able to follow one step commands without difficulty. - Head Head exam: Present: atraumatic, normal inspection - Respiratory Respiratory exam: Present: decreased breath sounds - Cardiovascular Cardiovascular exam: Present: RRR - GI/Abdominal GI/Abdominal exam: Present: normal bowel sounds, soft. Absent: diminished bowel sounds, tenderness - Extremities Exam Extremities exam: Present: full ROM. Absent: calf tenderness Additional comments: Motor strength is 5/5 in the bilateral upper and lower limbs. - Neurological Exam Neurological exam: Present: CN II-XII intact Additional comments: Patient denies double vision, EOMI intact. Tongue is midline. No facial droop. Physical Medicine - Results - Labs CBC & Chem 7: 08/16/16 05:30 08/16/16 05:30 - Impressions ITS Impressions Chest X-Ray 08/13/16 07:19 IMPRESSION: 1. Cardiomegaly and pulmonary edema with small pleural effusions compatible with CHF. 2. Nondisplaced right lateral 10th rib fracture. D/ / Oral Quintanilla MD / Oral Quintanilla MD Interpreting Provider: Oral Quintanilla MD Consult Discharge Plan - Plan Referrals: Jaren Coburn MD [Primary Care Provider] -
[2016-08-15] MEDS: *HR* LORazepam 0.5 MG TABLET PO PRN (21:53)
[2016-08-16] MEDS: hydrALAZINE 25 MG TABLET PO SCH ×4 (01:49→22:09)
[2016-08-16] MEDS: Albuterol 2.5 MG/3 ML NEBULIZER IH PRN ×2 (01:56→06:32)
[2016-08-16 05:48] LABS: Basophils # 0.1 K/mcL (0.0-0.2); Basophils % 0.5 %; Eosinophils # 0.5 K/mcL (0.0-0.6); Eosinophils % 3.2 %; Hematocrit 31.8 % (35.3-44.9); Hemoglobin 10.6 g/dL (11.5-15.4); Immature Granulocytes % 0.9 % (0-4); Lymphocytes # 2.1 K/mcL (0.6-4.6); Mean Corpuscular HGB Conc 33.3 g/dL (31.6-35.5); Mean Corpuscular Volume 86.9 fL (83.0-100.0); Mean Platelet Volume 9.7 fL (9.4-12.4); Monocytes # 1.3 K/mcL (0.0-1.3); Monocytes % 8.3 %; Neutrophils # 11.8 K/mcL (1.6-8.9); Platelet Count 516 K/mcL (140-400); Red Blood Count 3.66 M/mcL (3.82-4.97); Red Cell Distribution Width 14.1 % (11.5-14.5); Segmented Neutrophils % 74.1 %
[2016-08-16 05:56] LABS: Calcium 9.3 mg/dL (8.6-10.8); Potassium 4.1 mEq/L (3.5-4.5)
[2016-08-16] MEDS: *HR* Enoxaparin 30 MG/0.3 ML SYRINGE SQ SCH (06:07)
[2016-08-16] MEDS: Albuterol 2.5 MG/3 ML NEBULIZER IH SCH ×4 (10:16→22:09)
[2016-08-16] MEDS: Cholecalciferol (D-3) 1,000 UNIT TABLET PO SCH (10:16)
[2016-08-16] MEDS: Aspirin 81 MG TAB.CHEW PO SCH (10:16)
[2016-08-16] MEDS: amLODIPine 5 MG TABLET PO SCH (10:17)
[2016-08-16] MEDS: Budesonide/Formoterol 80/4.5 MDI IH SCH ×2 (10:17→22:10)
[2016-08-16] MEDS: Furosemide 40 MG TABLET PO SCH ×2 (10:17→18:44)
[2016-08-16] MEDS: Venlafaxine XR (24 HR) 75 MG CAP.ER.24H PO SCH (10:17)
--- NOTE | 2016-08-16 11:52 | Physician Discharge Referral ---
ExtendedCare Referral Info [facility] Provider in Charge: Provider in Charge after Transfer: Other Institutional Level of Care: Skilled () - Diagnosis (1) Abnormality of gait following cerebrovascular accident Status: Acute (2) Internuclear ophthalmoplegia of right eye Status: Acute (3) Cognitive deficit due to recent cerebrovascular accident (CVA) Status: Acute (4) COPD (chronic obstructive pulmonary disease) Status: Acute (5) Chronic kidney disease (CKD) Status: Acute (6) Hypertension Status: Acute (7) Diabetes mellitus Status: Acute (8) Urinary incontinence Status: Acute (9) Anemia Status: Acute (10) Leukocytosis Status: Acute (11) DVT prophylaxis Status: Acute - Transfer Medications Home Medications: Albuterol Neb [Proventil Neb] 2.5 mg IH Q4HR PRN 07/31/16 [History] Budesonide/Formoterol 80/4.5 [Symbicort 80/4.5] 0 gm IH BIDR 07/31/16 [History] Cholecalciferol (Vitamin D3) [Vitamin D] 400 unit PO DAILY 07/31/16 [History] Furosemide [Lasix] 80 mg PO BID 07/31/16 [History] LORazepam [Ativan] 0.5 mg PO TID PRN 07/31/16 [History] Lisinopril [Zestril] 40 mg PO DAILY 07/31/16 [History] Montelukast [Singulair] 10 mg PO DAILY 07/31/16 [History] Venlafaxine XR (24 HR) [Effexor XR] 75 mg PO DAILY 07/31/16 [History] amLODIPine [Norvasc] 10 mg PO DAILY 07/31/16 [History] Acetaminophen [Non-Aspirin] 650 mg PO Q4HR PRN 08/10/16 [History] Aspirin 81 mg PO DAILY 08/10/16 [History] Atorvastatin [Lipitor] 40 mg PO HS 08/10/16 [History] Bethanechol [Urecholine] 10 mg PO TID 08/10/16 [History] Metoprolol Tartrate 25 mg PO BID 08/10/16 [History] Polyethylene Glycol 3350 [MiraLAX Powder Bulk 17.9 Oz] 17 gm PO DAILY 08/10/16 [ History] hydrALAZINE [HydrALAZINE] 50 mg PO TID 08/10/16 [History] Allergies/Adverse Reactions: Allergies prednisone Allergy (Verified 08/10/16 21:44) See Comments - Respiratory Orders Oxygen / L per min (2-3 L/NC) Smoking Cessation: Smoking cessation has been advised. For more information, call the [place] Tobacco Quit Line at 9-652-ESSZ-NOW. - Ancillary Orders May use pressure relief devices daily prn, May go on ERNESTO w/family/respon libertarian w /meds at nurse discretion PRN - Advance Directives Living Will: Yes Power of Upholstery Cleaner: Yes Code Status: DNR-Arrest/Don't Intubate - Mobility Orders Ambulate (With walker and assistance) - Rehabiliation Orders Rehab Potential: Good Rehab Orders: Evaluation for Physical Therapy, Evaluation for Occupational Therapy, Evaluation for Speech Therapy - Treatments Skin tear care topically daily PRN per policy, May check for fecal impaction rectally daily PRN - Diet Orders No Concentrated Sweets CERTIFICATION: I certify that the transfer of the above named patient to an Extended Care Facility is necessary for the continuing treatment of the diagnosis listed. The above information is true and accurate reflection of patient's current condition. Confidential - Redisclosure prohibited without a patient's written consent.
--- NOTE | 2016-08-16 11:55 | Internal Med Progress Note ---
Date of Encounter: 08/16/16 Time of Encounter: 11:53 - Assessment and plan (1) Abnormality of gait following cerebrovascular accident Current Visit: Yes Status: Acute Assessment and plan: She is status post midbrain CVA and had significant gaze palsy and vertiginous symptoms. She is now showing marked improvement. She denies any dizziness or double vision. She is improving with her therapies. She still needs standby assistance with dressing and with walking with her walker etc. She still needs ongoing PT and OT, but she is improved and stable enough to move on to [facility]. (2) Internuclear ophthalmoplegia of right eye Current Visit: Yes Status: Acute Assessment and plan: She denies any double vision or vertiginous symptoms. On cursory examination no obvious gaze palsy. (3) Cognitive deficit due to recent cerebrovascular accident (CVA) Current Visit: Yes Status: Acute Assessment and plan: She was seen by psychologist yesterday. She does have some cognitive decline. Family states this is worse than her baseline at home. She needs 24-hour supervision. She tries to get out of bed before asking for help, etc. She is a fall risk from this as well. (4) COPD (chronic obstructive pulmonary disease) Current Visit: Yes Status: Acute Assessment and plan: Her COPD apparently is stable. She continues to be oxygen dependent. She continues to have rhonchi and wheezing intermittently. Partially clears with cough. She is getting nebulizer treatments. Since she does have elevated white blood cell count, she could have an occult pulmonary infection. CT scan of the chest will be ordered. Qualifiers: COPD type: unspecified COPD Qualified Code(s): J44.9 - Chronic obstructive pulmonary disease, unspecified (5) Chronic kidney disease (CKD) Current Visit: Yes Status: Acute Assessment and plan: She is a history of chronic kidney disease with acute kidney injury. Her creatinine is improving. We are avoiding nephrotoxic medications. She is taking fluids well. Her metformin has been held. We will start glipizide though as her sugars are increasing Qualifiers: Chronic kidney disease stage: stage 3 (moderate) Qualified Code(s): N18.3 - Chronic kidney disease, stage 3 (moderate) (6) Hypertension Current Visit: Yes Status: Acute Assessment and plan: Her hypertension has been under good control most of the time. Occasionally will be in the 150-160 systolic range. Continue her current medication. Qualifiers: Hypertension type: essential hypertension Qualified Code(s): I10 - Essential (primary) hypertension (7) Diabetes mellitus Current Visit: Yes Status: Acute Assessment and plan: Her sugars are slowly increasing. She occasionally has had 301. Metformin was held because of acute kidney injury. With her sugars elevating, her appetite is good, and she is also getting snacks brought in by family, we will start low- dose glipizide. Her last glycohemoglobin at [place] was 5.6%, at our facility before admission was 6.5%. Qualifiers: Diabetes mellitus type: type 2 Diabetes mellitus complication status: with neurologic complications Diabetes mellitus complication detail: with other neurological complication Diabetes mellitus correction insulin use: without correction use Qualified Code(s): E11.49 - Type 2 diabetes mellitus with other diabetic neurological complication (8) Urinary incontinence Current Visit: Yes Status: Acute Assessment and plan: Chronic urinary incontinence at night. She is continent during the day. We will continue frequent toileting. Qualifiers: Urinary Incontinence type: urinary incontinence without sensory awareness Qualified Code(s): N39.42 - Incontinence without sensory awareness (9) Anemia Current Visit: Yes Status: Acute Assessment and plan: Her hemoglobin is stable. No obvious bleeding source. Hemodynamically stable. I do not think she needs further workup or intervention at this time. Qualifiers: Anemia type: unspecified type Qualified Code(s): D64.9 - Anemia, unspecified (10) Leukocytosis Current Visit: Yes Status: Acute Assessment and plan: Her white blood cell count is in the 15,000 range. She has had no fever. No obvious source of infection. Since she has COPD and rhonchi and cough it may be bronchitis. She could have occult pneumonia. CT scan of the chest will be done. Repeat urine will be done. Qualifiers: Leukocytosis type: unspecified Qualified Code(s): D72.829 - Elevated white blood cell count, unspecified (11) DVT prophylaxis Current Visit: Yes Status: Acute - Subjective Interval history: Patient thinks she is doing much better. She denies any dizziness or double vision. She denies any chest pain, palpitations, dyspnea, abdominal pain, urinary symptoms except for her nighttime incontinence. She denies any pain. She continues to have coughing and is oxygen dependent which is chronic for her. She was a smoker until she ended up in the hospital. No significant sputum production. No fever or chills. Respiratory treatments have been helpful. - Constitutional Vitals: Temp Pulse Resp BP Pulse Ox 98.1 F 72 16 157/52 96 08/16/16 07:53 08/16/16 07:53 08/16/16 07:53 08/16/16 07:53 08/16/16 07:53 General appearance: Present: A&O X 2, no acute distress, obese. Absent: answers questions appropriately - Respiratory Additional comments: End expiratory wheezes in the left upper lobe, scattered congestion and rhonchi. No localization of crackles or rales. No respiratory distress. - Cardiovascular Cardiovascular exam: Present: RRR, +S1, +S2, systolic murmur (2/6 systolic murmur at the left sternal border.) - GI/Abdominal GI/Abdominal exam: Present: soft, no peritoneal signs. Absent: tenderness - Extremities Exam Extremities exam: Absent: calf tenderness, pedal edema - Neurological Exam Additional comments: Her gaze appears to be conjugate. She is able to move all extremities appropriately. Equal strength bilaterally. She is moving better in bed and more independently. - Skin Additional comments: She is a bruise on her left buttock with a small approximate 3 cm hematoma. There is no skin breakdown. She is not particularly tender area. She had sustained falls at home prior to her initial hospitalization Internal Medicine: Result - Labs CBC & Chem 7: 08/16/16 05:30 08/16/16 05:30 Labs: Short CBC 08/16/16 Range/Units 05:30 WBC 15.9 H (4.3-11.1) K/mcL Hgb 10.6 L (11.5-15.4) g/dL Hct 31.8 L (35.3-44.9) % Plt Count 516 H (140-400) K/mcL Neutrophils # 11.8 H (1.6-8.9) K/mcL BMP 08/16/16 05:30 Sodium 140 Potassium 4.1 Chloride 99 Carbon Dioxide 30 H BUN 42 H Creatinine 1.42 H Glucose 165 H Calcium 9.3 White blood cell count is still elevated but stable in the 15,000 range. Creatinine is improving but still abnormal. Glucose readings have been a bit more elevated, 1 Accu-Chek was 301. - VTE Documentation of Mechanical Device: Graduated compression elastic hosiery Consult Discharge Plan - Plan Referrals: Jaren Coburn MD [Primary Care Provider] -
[2016-08-16] MEDS: *HR* GlipiZIDE 5 MG TABLET PO SCH (12:21)
--- NOTE | 2016-08-16 13:49 | Discharge Summary ---
Date of Encounter: 08/24/16 Time of Encounter: 07:14 - Discharge Diagnosis (1) Cognitive deficit due to recent cerebrovascular accident (CVA) Priority: Primary Status: Acute Comments: Family reports that she was having a gentle decline in her cognitive function at home prior to the CVA. However she has had a stepwise decline in short and long-term memory, personality, decreased spontaneous speech, and saying things she would not ordinarily say at home. These were all likely due to her CVA. She does not make good judgment decisions regarding self-care and is at risk for falls. I would recommend ongoing speech therapy/psychology support. She had an acute mental status change/delirium for a few days when being treated for pneumonia. Her cognitive function is not back to the prior post CVA level, but certainly improving. She does get fixated on certain problems such as locking her bed. She can never remember my name. Sometimes she becomes cantankerous/disagreeable but is able to be redirected. (2) Acute delirium Priority: Secondary Status: Resolved Comments: See above regarding acute mental status changes. I am not sure if the altered mental status with acute delirium was secondary to her pneumonia, medication to treat pneumonia, sundowning from being hospitalized for so long, a combination of the above and the addition then of Ativan for restlessness. In any case her CT scan of the head showed no acute changes. She did receive Haldol 2 mg IM 2 nights in a row to try to ensure she gets a good night's sleep. Her lab work actually improved during the episode and now she is gaining close to back to where she was a week ago in her post-CVA status. Currently she has some irritability and argumentativeness but has been participating with physical therapy, taking by mouth well. Tolerating medications well, etc. (3) Abnormality of gait following cerebrovascular accident Priority: Secondary Status: Acute Comments: Patient was initially seen at [facility] with history of falling down, vertiginous symptoms, was found to have a gaze palsy but negative CT scan of the head. She was transferred to [place]. She had MRI scanning which showed midbrain infarct and right sixth nerve medial rectus ophthalmoplegia. Her CVA symptoms quieted down to the point where she was able to start physical therapy. She had a workup at [place]. Please see those records. She was discharged to [facility] for aggressive PT, OT, ST, and usp. She advanced nicely with her therapies. Her double vision/vertigo symptoms resolved completely. She is able to get out of bed, ambulate with a walker, perform physical therapy functions. However, she needs at least standby assistance because of wide based gait, sometimes swaying or off balance, making poor judgment decisions. He did fall risk for getting up to go to the bathroom without help, and she forgets to call for assistance. She continues to improve still needs 24-hour supervision and ongoing therapies. She will be transferred to [facility] (4) Healthcare-associated pneumonia Priority: Secondary Status: Resolved Comments: Patient had had elevated white blood cell count of 14-15,000 since admission to our facility. She had negative urine culture on admission, negative chest x- ray for pneumonia. She has had no fever. With the persistent leukocytosis I ordered a CT scan of the lungs and she was found to have multifocal infiltrates. Since she came to us from a hospital so she will need to be covered for healthcare associated pneumonia. Triple antibiotic of cefepime, Levaquin and vancomycin were started after blood cultures drawn. After about 2 days of the IV antibiotics the patient started having confusion, restlessness and went on to have an acute delirium for 4-5 days. I am not sure if it was a coincidence that it occurred starting the antibiotics, whether she was having sundowning from being hospitalized first along, whether is related to the underlying HAP, or other etiology. One evening she was sedated as there were trying to get blood work from her. She became quite somnolent. Par that sedation was likely from the Ativan. However was quite prolonged, restlessness , nonverbal and hypersomnolence. Levaquin was discontinued about 24 hours later or so she started to waken up. After she had received 5 old days of IV antibiotics it was discontinued. Her lungs are clear. She has had no fever. Her white blood cell count is now normalized at 10,000. She is resolving her acute delirium/mental status changes. (5) Internuclear ophthalmoplegia of right eye Priority: Secondary Status: Resolved Comments: Patient had double vision/disconjugate gaze and right sixth nerve palsy. She had repeated falling episodes at home and in fact has a right sixth rib fracture. Her gaze palsy appears to be resolved, she denies any double vision, she has no vertiginous symptoms at this time. (6) COPD (chronic obstructive pulmonary disease) Priority: Secondary Status: Chronic Comments: She has had COPD for some time. She was a smoker up until her CVA. She was oxygen dependent at home and continues so at the hospital. She is getting treatments 4 times per day by nebulizer. At times she has rhonchi and wheezing , other times with a cough that almost completely clears. She denies respiratory distress, but she is requiring oxygen. She has declined nicotine patch or nicotine gum for any withdrawal symptoms. Qualifiers: COPD type: unspecified COPD Qualified Code(s): J44.9 - Chronic obstructive pulmonary disease, unspecified (7) Chronic kidney disease (CKD) Priority: Secondary Status: Chronic Comments: She has a history of chronic kidney disease which worsen with acute kidney injury with her recent stroke and dye studies etc. her creatinine is now improving. She seems to be taking her fluids adequately. We are trying to avoid nephrotoxic medications. Her metformin was discontinued. When her blood sugar started to increase to about 200 range, we started low-dose glipizide. Sugars are now under good control. Overall her last glycohemoglobin was 5.6 at [facility]. Qualifiers: Chronic kidney disease stage: stage 3 (moderate) Qualified Code(s): N18.3 - Chronic kidney disease, stage 3 (moderate) (8) Hypertension Priority: Secondary Status: Chronic Comments: Her blood pressure has been under relatively good control. Occasionally will be 150s to 160s systolic. When she had her acute delirium/mental status changes we had to hold her by mouth meds and her blood pressure eventually went up into the 200 systolic range. She is placing Catapres patch overnight. She then started to resume appropriate cognitive processes and was able to resume her oral medications. Now her blood pressures are normalized since restarting her oral medication. Qualifiers: Hypertension type: essential hypertension Qualified Code(s): I10 - Essential (primary) hypertension (9) Diabetes mellitus Priority: Secondary Status: Chronic Comments: She has a history of long-standing diabetes. Her glycohemoglobin tested recently added [facility] was 6.5%, at [facility] was 5.6% according to their records. When she first came to us her metformin was held because of her acute kidney injury. Now that her sugars are increasing as she has increased her appetite and also taking snacks, I have started low-dose glipizide each morning. Qualifiers: Diabetes mellitus type: type 2 Diabetes mellitus complication status: with neurologic complications Diabetes mellitus complication detail: with other neurological complication Diabetes mellitus detention insulin use: without tank terminal gauger use Qualified Code(s): E11.49 - Type 2 diabetes mellitus with other diabetic neurological complication (10) Urinary incontinence Priority: Secondary Status: Chronic Comments: She chronically has had urinary incontinence at home. She continues with nighttime incontinence. She has had frequent toileting and is now dry during the day. She continues to wear depends. Family states she was on medication at home which did not help. We did not continue any medication here. The biggest concern is that she will try to get up during the day to go to the bathroom without help which makes her a great fall risk. Qualifiers: Urinary Incontinence type: urinary incontinence without sensory awareness Qualified Code(s): N39.42 - Incontinence without sensory awareness (11) Anemia Priority: Secondary Status: Acute Comments: She has had mild anemia, hemoglobin dropped gram or 2 here. It is now back up to the 10-11 g range. No active site of bleeding. She did have a bruise on her buttock from her fall. We did not initiate a full workup for her anemia as she has been a hospice patient prior to hospitalization. Qualifiers: Anemia type: unspecified type Qualified Code(s): D64.9 - Anemia, unspecified (12) Leukocytosis Priority: Secondary Status: Resolved Comments: Patient had continued mild leukocytosis. White blood cell count peaked at 15, 000 range. She has had no fever, no acute symptoms, had a negative urine on admission. She had continued cough and congestion from her COPD. She had rhonchi and could possibly have a pulmonary infection. CT scan was consistent with multifocal infiltrates suggesting hospital associated pneumonia. Triple IV antibiotics were initiated. After 5 days of IV antibiotics her white blood cell count is now normalized at the 10,000 range. She has had no fever. Qualifiers: Leukocytosis type: unspecified Qualified Code(s): D72.829 - Elevated white blood cell count, unspecified - Discharge Medications Home Medications: Budesonide/Formoterol 80/4.5 [Symbicort 80/4.5] 0 gm IH BIDR 07/31/16 [History] Cholecalciferol (Vitamin D3) [Vitamin D3] 400 unit PO DAILY 07/31/16 [History] Lisinopril [Zestril] 40 mg PO DAILY 07/31/16 [History] Montelukast [Singulair] 10 mg PO DAILY 07/31/16 [History] Venlafaxine XR (24 HR) [Effexor XR] 75 mg PO DAILY 07/31/16 [History] amLODIPine [Norvasc] 10 mg PO DAILY 07/31/16 [History] Acetaminophen [Non-Aspirin] 650 mg PO Q4HR PRN 08/10/16 [History] Aspirin 81 mg PO DAILY 08/10/16 [History] Atorvastatin [Lipitor] 40 mg PO HS 08/10/16 [History] Polyethylene Glycol 3350 [MiraLAX Powder Bulk 17.9 Oz] 17 gm PO DAILY 08/10/16 [ History] hydrALAZINE [HydrALAZINE] 50 mg PO TID 08/10/16 [History] Albuterol Neb [Proventil Neb] 2.5 mg IH P2UCMDS PRN #0 inhsol 08/16/16 [Rx] Albuterol Neb [Proventil Neb] 2.5 mg IH QID inhsol 08/16/16 [Rx] Furosemide [Lasix] 40 mg PO BIDDIURETIC tablet 08/16/16 [Rx] Metoprolol [Lopressor] 25 mg PO BID tablet 08/16/16 [Rx] glipiZIDE [Glucotrol] 2.5 mg PO DAILY tablet 08/16/16 [Rx] Allergies/Adverse Reactions: Allergies prednisone Allergy (Verified 08/10/16 21:44) See Comments Procedures/tests Complete & Pending: Procedures Performed prior 72 hours Category Date Time Status CT chest wo con [CT] Routine Cat Scan 08/16/16 12:03 Ordered Laboratory Results - last 24 hr 08/14/16 08/14/16 08/14/16 07:56 12:03 17:01 WBC RBC Hgb Hct MCV MCH MCHC RDW Plt Count MPV Immature Gran % Seg Neutrophils % Lymphocytes % Monocytes % Eosinophils % Basophils % Neutrophils # Lymphocytes # Monocytes # Eosinophils # Basophils # Sodium Potassium Chloride Carbon Dioxide BUN Creatinine Est GFR ( Amer) Est GFR (Non-Af Amer) BUN/Creatinine Ratio Glucose POC Glucose 166 H 158 H 146 H Calculated Osmolality Calcium 08/14/16 08/15/16 08/15/16 20:06 11:42 16:29 WBC RBC Hgb Hct MCV MCH MCHC RDW Plt Count MPV Immature Gran % Seg Neutrophils % Lymphocytes % Monocytes % Eosinophils % Basophils % Neutrophils # Lymphocytes # Monocytes # Eosinophils # Basophils # Sodium Potassium Chloride Carbon Dioxide BUN Creatinine Est GFR ( Amer) Est GFR (Non-Af Amer) BUN/Creatinine Ratio Glucose POC Glucose 280 H 209 H 162 H Calculated Osmolality Calcium 08/15/16 08/16/16 08/16/16 20:28 02:02 05:30 WBC 15.9 H RBC 3.66 L Hgb 10.6 L Hct 31.8 L MCV 86.9 MCH 29.0 MCHC 33.3 RDW 14.1 Plt Count 516 H MPV 9.7 Immature Gran % 0.9 Seg Neutrophils % 74.1 Lymphocytes % 13.0 Monocytes % 8.3 Eosinophils % 3.2 Basophils % 0.5 Neutrophils # 11.8 H Lymphocytes # 2.1 Monocytes # 1.3 Eosinophils # 0.5 Basophils # 0.1 Sodium Potassium Chloride Carbon Dioxide BUN Creatinine Est GFR ( Amer) Est GFR (Non-Af Amer) BUN/Creatinine Ratio Glucose POC Glucose 301 H 170 H Calculated Osmolality Calcium 08/16/16 08/16/16 05:30 08:01 WBC RBC Hgb Hct MCV MCH MCHC RDW Plt Count MPV Immature Gran % Seg Neutrophils % Lymphocytes % Monocytes % Eosinophils % Basophils % Neutrophils # Lymphocytes # Monocytes # Eosinophils # Basophils # Sodium 140 Potassium 4.1 Chloride 99 Carbon Dioxide 30 H BUN 42 H Creatinine 1.42 H Est GFR ( Amer) 43 L Est GFR (Non-Af Amer) 36 L BUN/Creatinine Ratio 30 H Glucose 165 H POC Glucose 196 H Calculated Osmolality 304 H Calcium 9.3 Chest X-Ray 08/13/16 07:19 IMPRESSION: 1. Cardiomegaly and pulmonary edema with small pleural effusions compatible with CHF. 2. Nondisplaced right lateral 10th rib fracture. D/ / Oral Quintanilla MD / Oral Quintanilla MD Interpreting Provider: Oral Quintanilla MD Laboratory Results - last 72 hr 08/21/16 08/21/16 08/21/16 07:41 11:54 16:37 POC Glucose 144 H 180 H 137 H 08/21/16 08/22/16 08/22/16 20:14 07:56 11:55 POC Glucose 136 H 127 H 129 H 08/22/16 08/22/16 08/23/16 15:50 20:17 07:51 POC Glucose 121 H 311 H 141 H 08/23/16 08/23/16 08/23/16 12:02 16:52 20:23 POC Glucose 70 105 H 142 H Lab Results 08/11/16 08/11/16 08/11/16 Range/Units 05:20 05:20 11:40 WBC 14.4 H (4.3-11.1) K/mcL RBC 3.74 L (3.82-4.97) M/mcL Hgb 10.9 L (11.5-15.4) g/dL Hct 32.0 L (35.3-44.9) % MCV 85.6 (83.0-100.0) fL MCH 29.1 (28.0-33.3) pg MCHC 34.1 (31.6-35.5) g/dL RDW 14.0 (11.5-14.5) % Plt Count 432 H (140-400) K/mcL MPV 9.8 (9.4-12.4) fL Immature Gran % 0.4 (0-4) % Seg Neutrophils % 78.5 % Lymphocytes % 9.1 % Monocytes % 8.7 % Eosinophils % 2.6 % Basophils % 0.7 % Neutrophils # 11.3 H (1.6-8.9) K/mcL Lymphocytes # 1.3 (0.6-4.6) K/mcL Monocytes # 1.3 (0.0-1.3) K/mcL Eosinophils # 0.4 (0.0-0.6) K/mcL Basophils # 0.1 (0.0-0.2) K/mcL Sodium 137 (136-145) mEq/L Potassium 4.2 (3.5-4.5) mEq/L Chloride 98 (98-109) mEq/L Carbon Dioxide 26 (19-29) mEq/L BUN 59 H (7-20) mg/dL Creatinine 1.48 H (0.57-1.11) mg/dL Est GFR ( Amer) 41 L (> 60) Est GFR (Non-Af Amer) 34 L (> 60) BUN/Creatinine Ratio 40 H (6-26) Glucose 160 H (70-99) mg/dL POC Glucose (58-89) Calculated Osmolality 304 H (280-300) Calcium 9.7 (8.6-10.8) mg/dL Total Bilirubin (0.2-1.2) mg/dL Direct Bilirubin (0.0-0.5) mg/dL Indirect Bilirubin (0.0-1.2) mg/dL AST (5-34) Units/L ALT (0-55) Units/L Alkaline Phosphatase (38-126) Units/L Serum Total Protein (6.0-8.3) g/dL Albumin (3.5-5.0) g/dL Globulin (2.4-3.5) g/dL Albumin/Globulin Ratio (1.1-2.2) TSH (0.350-4.840) mcIU/mL Urine Color Yellow (Yellow) Urine Clarity Clear (Clear) Urine pH 5.0 (5.0-8.0) pH Units Ur Specific Beeler 1.010 (1.010-1.025) Urine Protein 100 H (Neg-Trace) mg/dL Urine Glucose (UA) Normal (Normal) mg/dL Urine Ketones Negative (Negative) mg/dL Urine Blood Negative (Negative) Urine Nitrite Negative (Negative) Urine Bilirubin Negative (Negative) Urine Urobilinogen Normal (Normal) mg/dL Ur Leukocyte Esterase Negative (Negative) Urine Microscopic RBC (0-3) per hpf Urine Microscopic WBC 0-3 (0-3) per hpf Ur Squamous Epith Cells Moderate H (None-Few) per lpf Ur Renal Epithelial Cell (None-Few) per hpf Urine Bacteria Moderate H (None-Few) per hpf Ur Culture Indicated? NO (NO) Vancomycin Trough (10-20) mcg/mL Random Vancomycin mcg/mL 08/11/16 08/12/16 08/12/16 Range/Units 20:18 07:48 11:26 WBC (4.3-11.1) K/mcL RBC (3.82-4.97) M/mcL Hgb (11.5-15.4) g/dL Hct (35.3-44.9) % MCV (83.0-100.0) fL MCH (28.0-33.3) pg MCHC (31.6-35.5) g/dL RDW (11.5-14.5) % Plt Count (140-400) K/mcL MPV (9.4-12.4) fL Immature Gran % (0-4) % Seg Neutrophils % % Lymphocytes % % Monocytes % % Eosinophils % % Basophils % % Neutrophils # (1.6-8.9) K/mcL Lymphocytes # (0.6-4.6) K/mcL Monocytes # (0.0-1.3) K/mcL Eosinophils # (0.0-0.6) K/mcL Basophils # (0.0-0.2) K/mcL Sodium (136-145) mEq/L Potassium (3.5-4.5) mEq/L Chloride (98-109) mEq/L Carbon Dioxide (19-29) mEq/L BUN (7-20) mg/dL Creatinine (0.57-1.11) mg/dL Est GFR ( Amer) (> 60) Est GFR (Non-Af Amer) (> 60) BUN/Creatinine Ratio (6-26) Glucose (70-99) mg/dL POC Glucose 140 H 153 H 177 H (58-89) Calculated Osmolality (280-300) Calcium (8.6-10.8) mg/dL Total Bilirubin (0.2-1.2) mg/dL Direct Bilirubin (0.0-0.5) mg/dL Indirect Bilirubin (0.0-1.2) mg/dL AST (5-34) Units/L ALT (0-55) Units/L Alkaline Phosphatase (38-126) Units/L Serum Total Protein (6.0-8.3) g/dL Albumin (3.5-5.0) g/dL Globulin (2.4-3.5) g/dL Albumin/Globulin Ratio (1.1-2.2) TSH (0.350-4.840) mcIU/mL Urine Color (Yellow) Urine Clarity (Clear) Urine pH (5.0-8.0) pH Units Ur Specific Beeler (1.010-1.025) Urine Protein (Neg-Trace) mg/dL Urine Glucose (UA) (Normal) mg/dL Urine Ketones (Negative) mg/dL Urine Blood (Negative) Urine Nitrite (Negative) Urine Bilirubin (Negative) Urine Urobilinogen (Normal) mg/dL Ur Leukocyte Esterase (Negative) Urine Microscopic RBC (0-3) per hpf Urine Microscopic WBC (0-3) per hpf Ur Squamous Epith Cells (None-Few) per lpf Ur Renal Epithelial Cell (None-Few) per hpf Urine Bacteria (None-Few) per hpf Ur Culture Indicated? (NO) Vancomycin Trough (10-20) mcg/mL Random Vancomycin mcg/mL 08/12/16 08/12/16 08/13/16 Range/Units 16:47 20:28 05:15 WBC 14.2 H (4.3-11.1) K/mcL RBC 3.69 L (3.82-4.97) M/mcL Hgb 10.8 L (11.5-15.4) g/dL Hct 32.0 L (35.3-44.9) % MCV 86.7 (83.0-100.0) fL MCH 29.3 (28.0-33.3) pg MCHC 33.8 (31.6-35.5) g/dL RDW 14.1 (11.5-14.5) % Plt Count 466 H (140-400) K/mcL MPV 10.0 (9.4-12.4) fL Immature Gran % 0.5 (0-4) % Seg Neutrophils % 73.9 % Lymphocytes % 12.6 % Monocytes % 9.3 % Eosinophils % 2.9 % Basophils % 0.8 % Neutrophils # 10.5 H (1.6-8.9) K/mcL Lymphocytes # 1.8 (0.6-4.6) K/mcL Monocytes # 1.3 (0.0-1.3) K/mcL Eosinophils # 0.4 (0.0-0.6) K/mcL Basophils # 0.1 (0.0-0.2) K/mcL Sodium (136-145) mEq/L Potassium (3.5-4.5) mEq/L Chloride (98-109) mEq/L Carbon Dioxide (19-29) mEq/L BUN (7-20) mg/dL Creatinine (0.57-1.11) mg/dL Est GFR ( Amer) (> 60) Est GFR (Non-Af Amer) (> 60) BUN/Creatinine Ratio (6-26) Glucose (70-99) mg/dL POC Glucose 188 H 247 H (58-89) Calculated Osmolality (280-300) Calcium (8.6-10.8) mg/dL Total Bilirubin (0.2-1.2) mg/dL Direct Bilirubin (0.0-0.5) mg/dL Indirect Bilirubin (0.0-1.2) mg/dL AST (5-34) Units/L ALT (0-55) Units/L Alkaline Phosphatase (38-126) Units/L Serum Total Protein (6.0-8.3) g/dL Albumin (3.5-5.0) g/dL Globulin (2.4-3.5) g/dL Albumin/Globulin Ratio (1.1-2.2) TSH (0.350-4.840) mcIU/mL Urine Color (Yellow) Urine Clarity (Clear) Urine pH (5.0-8.0) pH Units Ur Specific Beeler (1.010-1.025) Urine Protein (Neg-Trace) mg/dL Urine Glucose (UA) (Normal) mg/dL Urine Ketones (Negative) mg/dL Urine Blood (Negative) Urine Nitrite (Negative) Urine Bilirubin (Negative) Urine Urobilinogen (Normal) mg/dL Ur Leukocyte Esterase (Negative) Urine Microscopic RBC (0-3) per hpf Urine Microscopic WBC (0-3) per hpf Ur Squamous Epith Cells (None-Few) per lpf Ur Renal Epithelial Cell (None-Few) per hpf Urine Bacteria (None-Few) per hpf Ur Culture Indicated? (NO) Vancomycin Trough (10-20) mcg/mL Random Vancomycin mcg/mL 08/13/16 08/13/16 08/13/16 Range/Units 05:15 07:46 11:29 WBC (4.3-11.1) K/mcL RBC (3.82-4.97) M/mcL Hgb (11.5-15.4) g/dL Hct (35.3-44.9) % MCV (83.0-100.0) fL MCH (28.0-33.3) pg MCHC (31.6-35.5) g/dL RDW (11.5-14.5) % Plt Count (140-400) K/mcL MPV (9.4-12.4) fL Immature Gran % (0-4) % Seg Neutrophils % % Lymphocytes % % Monocytes % % Eosinophils % % Basophils % % Neutrophils # (1.6-8.9) K/mcL Lymphocytes # (0.6-4.6) K/mcL Monocytes # (0.0-1.3) K/mcL Eosinophils # (0.0-0.6) K/mcL Basophils # (0.0-0.2) K/mcL Sodium 140 (136-145) mEq/L Potassium 4.3 (3.5-4.5) mEq/L Chloride 101 (98-109) mEq/L Carbon Dioxide 28 (19-29) mEq/L BUN 61 H (7-20) mg/dL Creatinine 1.72 H (0.57-1.11) mg/dL Est GFR ( Amer) 35 L (> 60) Est GFR (Non-Af Amer) 29 L (> 60) BUN/Creatinine Ratio 35 H (6-26) Glucose 155 H (70-99) mg/dL POC Glucose 167 H 191 H (58-89) Calculated Osmolality 310 H (280-300) Calcium 9.3 (8.6-10.8) mg/dL Total Bilirubin (0.2-1.2) mg/dL Direct Bilirubin (0.0-0.5) mg/dL Indirect Bilirubin (0.0-1.2) mg/dL AST (5-34) Units/L ALT (0-55) Units/L Alkaline Phosphatase (38-126) Units/L Serum Total Protein (6.0-8.3) g/dL Albumin (3.5-5.0) g/dL Globulin (2.4-3.5) g/dL Albumin/Globulin Ratio (1.1-2.2) TSH (0.350-4.840) mcIU/mL Urine Color (Yellow) Urine Clarity (Clear) Urine pH (5.0-8.0) pH Units Ur Specific Beeler (1.010-1.025) Urine Protein (Neg-Trace) mg/dL Urine Glucose (UA) (Normal) mg/dL Urine Ketones (Negative) mg/dL Urine Blood (Negative) Urine Nitrite (Negative) Urine Bilirubin (Negative) Urine Urobilinogen (Normal) mg/dL Ur Leukocyte Esterase (Negative) Urine Microscopic RBC (0-3) per hpf Urine Microscopic WBC (0-3) per hpf Ur Squamous Epith Cells (None-Few) per lpf Ur Renal Epithelial Cell (None-Few) per hpf Urine Bacteria (None-Few) per hpf Ur Culture Indicated? (NO) Vancomycin Trough (10-20) mcg/mL Random Vancomycin mcg/mL 08/13/16 08/13/16 08/14/16 Range/Units 16:30 20:18 05:30 WBC 15.5 H (4.3-11.1) K/mcL RBC 3.86 (3.82-4.97) M/mcL Hgb 11.3 L (11.5-15.4) g/dL Hct 33.5 L (35.3-44.9) % MCV 86.8 (83.0-100.0) fL MCH 29.3 (28.0-33.3) pg MCHC 33.7 (31.6-35.5) g/dL RDW 14.1 (11.5-14.5) % Plt Count 557 H (140-400) K/mcL MPV 9.2 L (9.4-12.4) fL Immature Gran % 0.5 (0-4) % Seg Neutrophils % 73.1 % Lymphocytes % 13.6 % Monocytes % 9.2 % Eosinophils % 3.0 % Basophils % 0.6 % Neutrophils # 11.3 H (1.6-8.9) K/mcL Lymphocytes # 2.1 (0.6-4.6) K/mcL Monocytes # 1.4 H (0.0-1.3) K/mcL Eosinophils # 0.5 (0.0-0.6) K/mcL Basophils # 0.1 (0.0-0.2) K/mcL Sodium (136-145) mEq/L Potassium (3.5-4.5) mEq/L Chloride (98-109) mEq/L Carbon Dioxide (19-29) mEq/L BUN (7-20) mg/dL Creatinine (0.57-1.11) mg/dL Est GFR ( Amer) (> 60) Est GFR (Non-Af Amer) (> 60) BUN/Creatinine Ratio (6-26) Glucose (70-99) mg/dL POC Glucose 140 H 194 H (58-89) Calculated Osmolality (280-300) Calcium (8.6-10.8) mg/dL Total Bilirubin (0.2-1.2) mg/dL Direct Bilirubin (0.0-0.5) mg/dL Indirect Bilirubin (0.0-1.2) mg/dL AST (5-34) Units/L ALT (0-55) Units/L Alkaline Phosphatase (38-126) Units/L Serum Total Protein (6.0-8.3) g/dL Albumin (3.5-5.0) g/dL Globulin (2.4-3.5) g/dL Albumin/Globulin Ratio (1.1-2.2) TSH (0.350-4.840) mcIU/mL Urine Color (Yellow) Urine Clarity (Clear) Urine pH (5.0-8.0) pH Units Ur Specific Beeler (1.010-1.025) Urine Protein (Neg-Trace) mg/dL Urine Glucose (UA) (Normal) mg/dL Urine Ketones (Negative) mg/dL Urine Blood (Negative) Urine Nitrite (Negative) Urine Bilirubin (Negative) Urine Urobilinogen (Normal) mg/dL Ur Leukocyte Esterase (Negative) Urine Microscopic RBC (0-3) per hpf Urine Microscopic WBC (0-3) per hpf Ur Squamous Epith Cells (None-Few) per lpf Ur Renal Epithelial Cell (None-Few) per hpf Urine Bacteria (None-Few) per hpf Ur Culture Indicated? (NO) Vancomycin Trough (10-20) mcg/mL Random Vancomycin mcg/mL 08/14/16 08/14/16 08/14/16 Range/Units 05:30 07:56 12:03 WBC (4.3-11.1) K/mcL RBC (3.82-4.97) M/mcL Hgb (11.5-15.4) g/dL Hct (35.3-44.9) % MCV (83.0-100.0) fL MCH (28.0-33.3) pg MCHC (31.6-35.5) g/dL RDW (11.5-14.5) % Plt Count (140-400) K/mcL MPV (9.4-12.4) fL Immature Gran % (0-4) % Seg Neutrophils % % Lymphocytes % % Monocytes % % Eosinophils % % Basophils % % Neutrophils # (1.6-8.9) K/mcL Lymphocytes # (0.6-4.6) K/mcL Monocytes # (0.0-1.3) K/mcL Eosinophils # (0.0-0.6) K/mcL Basophils # (0.0-0.2) K/mcL Sodium 141 (136-145) mEq/L Potassium 4.4 (3.5-4.5) mEq/L Chloride 101 (98-109) mEq/L Carbon Dioxide 29 (19-29) mEq/L BUN 50 H D (7-20) mg/dL Creatinine 1.53 H (0.57-1.11) mg/dL Est GFR ( Amer) 40 L (> 60) Est GFR (Non-Af Amer) 33 L (> 60) BUN/Creatinine Ratio 33 H (6-26) Glucose 143 H (70-99) mg/dL POC Glucose 166 H 158 H (58-89) Calculated Osmolality 308 H (280-300) Calcium 9.5 (8.6-10.8) mg/dL Total Bilirubin (0.2-1.2) mg/dL Direct Bilirubin (0.0-0.5) mg/dL Indirect Bilirubin (0.0-1.2) mg/dL AST (5-34) Units/L ALT (0-55) Units/L Alkaline Phosphatase (38-126) Units/L Serum Total Protein (6.0-8.3) g/dL Albumin (3.5-5.0) g/dL Globulin (2.4-3.5) g/dL Albumin/Globulin Ratio (1.1-2.2) TSH (0.350-4.840) mcIU/mL Urine Color (Yellow) Urine Clarity (Clear) Urine pH (5.0-8.0) pH Units Ur Specific [place] (1.010-1.025) Urine Protein (Neg-Trace) mg/dL Urine Glucose (UA) (Normal) mg/dL Urine Ketones (Negative) mg/dL Urine Blood (Negative) Urine Nitrite (Negative) Urine Bilirubin (Negative) Urine Urobilinogen (Normal) mg/dL Ur Leukocyte Esterase (Negative) Urine Microscopic RBC (0-3) per hpf Urine Microscopic WBC (0-3) per hpf Ur Squamous Epith Cells (None-Few) per lpf Ur Renal Epithelial Cell (None-Few) per hpf Urine Bacteria (None-Few) per hpf Ur Culture Indicated? (NO) Vancomycin Trough (10-20) mcg/mL Random Vancomycin mcg/mL 08/14/16 08/14/16 08/15/16 Range/Units 17:01 20:06 07:38 WBC (4.3-11.1) K/mcL RBC (3.82-4.97) M/mcL Hgb (11.5-15.4) g/dL Hct (35.3-44.9) % MCV (83.0-100.0) fL MCH (28.0-33.3) pg MCHC (31.6-35.5) g/dL RDW (11.5-14.5) % Plt Count (140-400) K/mcL MPV (9.4-12.4) fL Immature Gran % (0-4) % Seg Neutrophils % % Lymphocytes % % Monocytes % % Eosinophils % % Basophils % % Neutrophils # (1.6-8.9) K/mcL Lymphocytes # (0.6-4.6) K/mcL Monocytes # (0.0-1.3) K/mcL Eosinophils # (0.0-0.6) K/mcL Basophils # (0.0-0.2) K/mcL Sodium (136-145) mEq/L Potassium (3.5-4.5) mEq/L Chloride (98-109) mEq/L Carbon Dioxide (19-29) mEq/L BUN (7-20) mg/dL Creatinine (0.57-1.11) mg/dL Est GFR ( Amer) (> 60) Est GFR (Non-Af Amer) (> 60) BUN/Creatinine Ratio (6-26) Glucose (70-99) mg/dL POC Glucose 146 H 280 H 148 H (58-89) Calculated Osmolality (280-300) Calcium (8.6-10.8) mg/dL Total Bilirubin (0.2-1.2) mg/dL Direct Bilirubin (0.0-0.5) mg/dL Indirect Bilirubin (0.0-1.2) mg/dL AST (5-34) Units/L ALT (0-55) Units/L Alkaline Phosphatase (38-126) Units/L Serum Total Protein (6.0-8.3) g/dL Albumin (3.5-5.0) g/dL Globulin (2.4-3.5) g/dL Albumin/Globulin Ratio (1.1-2.2) TSH (0.350-4.840) mcIU/mL Urine Color (Yellow) Urine Clarity (Clear) Urine pH (5.0-8.0) pH Units Ur Specific [place] (1.010-1.025) Urine Protein (Neg-Trace) mg/dL Urine Glucose (UA) (Normal) mg/dL Urine Ketones (Negative) mg/dL Urine Blood (Negative) Urine Nitrite (Negative) Urine Bilirubin (Negative) Urine Urobilinogen (Normal) mg/dL Ur Leukocyte Esterase (Negative) Urine Microscopic RBC (0-3) per hpf Urine Microscopic WBC (0-3) per hpf Ur Squamous Epith Cells (None-Few) per lpf Ur Renal Epithelial Cell (None-Few) per hpf Urine Bacteria (None-Few) per hpf Ur Culture Indicated? (NO) Vancomycin Trough (10-20) mcg/mL Random Vancomycin mcg/mL 08/15/16 08/15/16 08/15/16 Range/Units 11:42 16:29 20:28 WBC (4.3-11.1) K/mcL RBC (3.82-4.97) M/mcL Hgb (11.5-15.4) g/dL Hct (35.3-44.9) % MCV (83.0-100.0) fL MCH (28.0-33.3) pg MCHC (31.6-35.5) g/dL RDW (11.5-14.5) % Plt Count (140-400) K/mcL MPV (9.4-12.4) fL Immature Gran % (0-4) % Seg Neutrophils % % Lymphocytes % % Monocytes % % Eosinophils % % Basophils % % Neutrophils # (1.6-8.9) K/mcL Lymphocytes # (0.6-4.6) K/mcL Monocytes # (0.0-1.3) K/mcL Eosinophils # (0.0-0.6) K/mcL Basophils # (0.0-0.2) K/mcL Sodium (136-145) mEq/L Potassium (3.5-4.5) mEq/L Chloride (98-109) mEq/L Carbon Dioxide (19-29) mEq/L BUN (7-20) mg/dL Creatinine (0.57-1.11) mg/dL Est GFR ( Amer) (> 60) Est GFR (Non-Af Amer) (> 60) BUN/Creatinine Ratio (6-26) Glucose (70-99) mg/dL POC Glucose 209 H 162 H 301 H (58-89) Calculated Osmolality (280-300) Calcium (8.6-10.8) mg/dL Total Bilirubin (0.2-1.2) mg/dL Direct Bilirubin (0.0-0.5) mg/dL Indirect Bilirubin (0.0-1.2) mg/dL AST (5-34) Units/L ALT (0-55) Units/L Alkaline Phosphatase (38-126) Units/L Serum Total Protein (6.0-8.3) g/dL Albumin (3.5-5.0) g/dL Globulin (2.4-3.5) g/dL Albumin/Globulin Ratio (1.1-2.2) TSH (0.350-4.840) mcIU/mL Urine Color (Yellow) Urine Clarity (Clear) Urine pH (5.0-8.0) pH Units Ur Specific [place] (1.010-1.025) Urine Protein (Neg-Trace) mg/dL Urine Glucose (UA) (Normal) mg/dL Urine Ketones (Negative) mg/dL Urine Blood (Negative) Urine Nitrite (Negative) Urine Bilirubin (Negative) Urine Urobilinogen (Normal) mg/dL Ur Leukocyte Esterase (Negative) Urine Microscopic RBC (0-3) per hpf Urine Microscopic WBC (0-3) per hpf Ur Squamous Epith Cells (None-Few) per lpf Ur Renal Epithelial Cell (None-Few) per hpf Urine Bacteria (None-Few) per hpf Ur Culture Indicated? (NO) Vancomycin Trough (10-20) mcg/mL Random Vancomycin mcg/mL 08/16/16 08/16/16 08/16/16 Range/Units 02:02 05:30 05:30 WBC 15.9 H (4.3-11.1) K/mcL RBC 3.66 L (3.82-4.97) M/mcL Hgb 10.6 L (11.5-15.4) g/dL Hct 31.8 L (35.3-44.9) % MCV 86.9 (83.0-100.0) fL MCH 29.0 (28.0-33.3) pg MCHC 33.3 (31.6-35.5) g/dL RDW 14.1 (11.5-14.5) % Plt Count 516 H (140-400) K/mcL MPV 9.7 (9.4-12.4) fL Immature Gran % 0.9 (0-4) % Seg Neutrophils % 74.1 % Lymphocytes % 13.0 % Monocytes % 8.3 % Eosinophils % 3.2 % Basophils % 0.5 % Neutrophils # 11.8 H (1.6-8.9) K/mcL Lymphocytes # 2.1 (0.6-4.6) K/mcL Monocytes # 1.3 (0.0-1.3) K/mcL Eosinophils # 0.5 (0.0-0.6) K/mcL Basophils # 0.1 (0.0-0.2) K/mcL Sodium 140 (136-145) mEq/L Potassium 4.1 (3.5-4.5) mEq/L Chloride 99 (98-109) mEq/L Carbon Dioxide 30 H (19-29) mEq/L BUN 42 H (7-20) mg/dL Creatinine 1.42 H (0.57-1.11) mg/dL Est GFR ( Amer) 43 L (> 60) Est GFR (Non-Af Amer) 36 L (> 60) BUN/Creatinine Ratio 30 H (6-26) Glucose 165 H (70-99) mg/dL POC Glucose 170 H (58-89) Calculated Osmolality 304 H (280-300) Calcium 9.3 (8.6-10.8) mg/dL Total Bilirubin (0.2-1.2) mg/dL Direct Bilirubin (0.0-0.5) mg/dL Indirect Bilirubin (0.0-1.2) mg/dL AST (5-34) Units/L ALT (0-55) Units/L Alkaline Phosphatase (38-126) Units/L Serum Total Protein (6.0-8.3) g/dL Albumin (3.5-5.0) g/dL Globulin (2.4-3.5) g/dL Albumin/Globulin Ratio (1.1-2.2) TSH (0.350-4.840) mcIU/mL Urine Color (Yellow) Urine Clarity (Clear) Urine pH (5.0-8.0) pH Units Ur Specific [place] (1.010-1.025) Urine Protein (Neg-Trace) mg/dL Urine Glucose (UA) (Normal) mg/dL Urine Ketones (Negative) mg/dL Urine Blood (Negative) Urine Nitrite (Negative) Urine Bilirubin (Negative) Urine Urobilinogen (Normal) mg/dL Ur Leukocyte Esterase (Negative) Urine Microscopic RBC (0-3) per hpf Urine Microscopic WBC (0-3) per hpf Ur Squamous Epith Cells (None-Few) per lpf Ur Renal Epithelial Cell (None-Few) per hpf Urine Bacteria (None-Few) per hpf Ur Culture Indicated? (NO) Vancomycin Trough (10-20) mcg/mL Random Vancomycin mcg/mL 08/16/16 08/16/16 08/16/16 Range/Units 08:01 11:45 16:58 WBC (4.3-11.1) K/mcL RBC (3.82-4.97) M/mcL Hgb (11.5-15.4) g/dL Hct (35.3-44.9) % MCV (83.0-100.0) fL MCH (28.0-33.3) pg MCHC (31.6-35.5) g/dL RDW (11.5-14.5) % Plt Count (140-400) K/mcL MPV (9.4-12.4) fL Immature Gran % (0-4) % Seg Neutrophils % % Lymphocytes % % Monocytes % % Eosinophils % % Basophils % % Neutrophils # (1.6-8.9) K/mcL Lymphocytes # (0.6-4.6) K/mcL Monocytes # (0.0-1.3) K/mcL Eosinophils # (0.0-0.6) K/mcL Basophils # (0.0-0.2) K/mcL Sodium (136-145) mEq/L Potassium (3.5-4.5) mEq/L Chloride (98-109) mEq/L Carbon Dioxide (19-29) mEq/L BUN (7-20) mg/dL Creatinine (0.57-1.11) mg/dL Est GFR ( Amer) (> 60) Est GFR (Non-Af Amer) (> 60) BUN/Creatinine Ratio (6-26) Glucose (70-99) mg/dL POC Glucose 196 H 217 H 103 H (58-89) Calculated Osmolality (280-300) Calcium (8.6-10.8) mg/dL Total Bilirubin (0.2-1.2) mg/dL Direct Bilirubin (0.0-0.5) mg/dL Indirect Bilirubin (0.0-1.2) mg/dL AST (5-34) Units/L ALT (0-55) Units/L Alkaline Phosphatase (38-126) Units/L Serum Total Protein (6.0-8.3) g/dL Albumin (3.5-5.0) g/dL Globulin (2.4-3.5) g/dL Albumin/Globulin Ratio (1.1-2.2) TSH (0.350-4.840) mcIU/mL Urine Color (Yellow) Urine Clarity (Clear) Urine pH (5.0-8.0) pH Units Ur Specific [place] (1.010-1.025) Urine Protein (Neg-Trace) mg/dL Urine Glucose (UA) (Normal) mg/dL Urine Ketones (Negative) mg/dL Urine Blood (Negative) Urine Nitrite (Negative) Urine Bilirubin (Negative) Urine Urobilinogen (Normal) mg/dL Ur Leukocyte Esterase (Negative) Urine Microscopic RBC (0-3) per hpf Urine Microscopic WBC (0-3) per hpf Ur Squamous Epith Cells (None-Few) per lpf Ur Renal Epithelial Cell (None-Few) per hpf Urine Bacteria (None-Few) per hpf Ur Culture Indicated? (NO) Vancomycin Trough (10-20) mcg/mL Random Vancomycin mcg/mL 08/16/16 08/16/16 08/17/16 Range/Units 17:50 21:36 05:00 WBC 16.4 H (4.3-11.1) K/mcL RBC 3.49 L (3.82-4.97) M/mcL Hgb 10.1 L (11.5-15.4) g/dL Hct 30.5 L (35.3-44.9) % MCV 87.4 (83.0-100.0) fL MCH 28.9 (28.0-33.3) pg MCHC 33.1 (31.6-35.5) g/dL RDW 14.0 (11.5-14.5) % Plt Count 550 H (140-400) K/mcL MPV 9.1 L (9.4-12.4) fL Immature Gran % 1.2 (0-4) % Seg Neutrophils % 74.6 % Lymphocytes % 12.2 % Monocytes % 7.9 % Eosinophils % 3.6 % Basophils % 0.5 % Neutrophils # 12.2 H (1.6-8.9) K/mcL Lymphocytes # 2.0 (0.6-4.6) K/mcL Monocytes # 1.3 (0.0-1.3) K/mcL Eosinophils # 0.6 (0.0-0.6) K/mcL Basophils # 0.1 (0.0-0.2) K/mcL Sodium (136-145) mEq/L Potassium (3.5-4.5) mEq/L Chloride (98-109) mEq/L Carbon Dioxide (19-29) mEq/L BUN (7-20) mg/dL Creatinine (0.57-1.11) mg/dL Est GFR ( Amer) (> 60) Est GFR (Non-Af Amer) (> 60) BUN/Creatinine Ratio (6-26) Glucose (70-99) mg/dL POC Glucose 139 H (58-89) Calculated Osmolality (280-300) Calcium (8.6-10.8) mg/dL Total Bilirubin (0.2-1.2) mg/dL Direct Bilirubin (0.0-0.5) mg/dL Indirect Bilirubin (0.0-1.2) mg/dL AST (5-34) Units/L ALT (0-55) Units/L Alkaline Phosphatase (38-126) Units/L Serum Total Protein (6.0-8.3) g/dL Albumin (3.5-5.0) g/dL Globulin (2.4-3.5) g/dL Albumin/Globulin Ratio (1.1-2.2) TSH (0.350-4.840) mcIU/mL Urine Color Yellow (Yellow) Urine Clarity Clear (Clear) Urine pH 6.0 (5.0-8.0) pH Units Ur Specific [place] 1.015 (1.010-1.025) Urine Protein 100 H (Neg-Trace) mg/dL Urine Glucose (UA) Normal (Normal) mg/dL Urine Ketones Negative (Negative) mg/dL Urine Blood Negative (Negative) Urine Nitrite Negative (Negative) Urine Bilirubin Negative (Negative) Urine Urobilinogen Normal (Normal) mg/dL Ur Leukocyte Esterase Small H (Negative) Urine Microscopic RBC 0-3 (0-3) per hpf Urine Microscopic WBC 5-15 H (0-3) per hpf Ur Squamous Epith Cells Few (None-Few) per lpf Ur Renal Epithelial Cell Few (None-Few) per hpf Urine Bacteria Few (None-Few) per hpf Ur Culture Indicated? YES A (NO) Vancomycin Trough (10-20) mcg/mL Random Vancomycin mcg/mL 08/17/16 08/17/16 08/17/16 Range/Units 05:00 06:54 11:36 WBC (4.3-11.1) K/mcL RBC (3.82-4.97) M/mcL Hgb (11.5-15.4) g/dL Hct (35.3-44.9) % MCV (83.0-100.0) fL MCH (28.0-33.3) pg MCHC (31.6-35.5) g/dL RDW (11.5-14.5) % Plt Count (140-400) K/mcL MPV (9.4-12.4) fL Immature Gran % (0-4) % Seg Neutrophils % % Lymphocytes % % Monocytes % % Eosinophils % % Basophils % % Neutrophils # (1.6-8.9) K/mcL Lymphocytes # (0.6-4.6) K/mcL Monocytes # (0.0-1.3) K/mcL Eosinophils # (0.0-0.6) K/mcL Basophils # (0.0-0.2) K/mcL Sodium 138 (136-145) mEq/L Potassium 4.8 H (3.5-4.5) mEq/L Chloride 99 (98-109) mEq/L Carbon Dioxide 31 H (19-29) mEq/L BUN 42 H (7-20) mg/dL Creatinine 1.45 H (0.57-1.11) mg/dL Est GFR ( Amer) 42 L (> 60) Est GFR (Non-Af Amer) 35 L (> 60) BUN/Creatinine Ratio 29 H (6-26) Glucose 134 H (70-99) mg/dL POC Glucose 176 H 77 (58-89) Calculated Osmolality 298 (280-300) Calcium 9.1 (8.6-10.8) mg/dL Total Bilirubin (0.2-1.2) mg/dL Direct Bilirubin (0.0-0.5) mg/dL Indirect Bilirubin (0.0-1.2) mg/dL AST (5-34) Units/L ALT (0-55) Units/L Alkaline Phosphatase (38-126) Units/L Serum Total Protein (6.0-8.3) g/dL Albumin (3.5-5.0) g/dL Globulin (2.4-3.5) g/dL Albumin/Globulin Ratio (1.1-2.2) TSH (0.350-4.840) mcIU/mL Urine Color (Yellow) Urine Clarity (Clear) Urine pH (5.0-8.0) pH Units Ur Specific [place] (1.010-1.025) Urine Protein (Neg-Trace) mg/dL Urine Glucose (UA) (Normal) mg/dL Urine Ketones (Negative) mg/dL Urine Blood (Negative) Urine Nitrite (Negative) Urine Bilirubin (Negative) Urine Urobilinogen (Normal) mg/dL Ur Leukocyte Esterase (Negative) Urine Microscopic RBC (0-3) per hpf Urine Microscopic WBC (0-3) per hpf Ur Squamous Epith Cells (None-Few) per lpf Ur Renal Epithelial Cell (None-Few) per hpf Urine Bacteria (None-Few) per hpf Ur Culture Indicated? (NO) Vancomycin Trough (10-20) mcg/mL Random Vancomycin mcg/mL 08/17/16 08/17/16 08/18/16 Range/Units 16:21 20:29 05:20 WBC 13.9 H (4.3-11.1) K/mcL RBC 3.53 L (3.82-4.97) M/mcL Hgb 10.3 L (11.5-15.4) g/dL Hct 30.4 L (35.3-44.9) % MCV 86.1 (83.0-100.0) fL MCH 29.2 (28.0-33.3) pg MCHC 33.9 (31.6-35.5) g/dL RDW 14.2 (11.5-14.5) % Plt Count 510 H (140-400) K/mcL MPV 9.1 L (9.4-12.4) fL Immature Gran % 1.2 (0-4) % Seg Neutrophils % 73.7 % Lymphocytes % 11.3 % Monocytes % 8.5 % Eosinophils % 4.6 % Basophils % 0.7 % Neutrophils # 10.2 H (1.6-8.9) K/mcL Lymphocytes # 1.6 (0.6-4.6) K/mcL Monocytes # 1.2 (0.0-1.3) K/mcL Eosinophils # 0.6 (0.0-0.6) K/mcL Basophils # 0.1 (0.0-0.2) K/mcL Sodium (136-145) mEq/L Potassium (3.5-4.5) mEq/L Chloride (98-109) mEq/L Carbon Dioxide (19-29) mEq/L BUN (7-20) mg/dL Creatinine (0.57-1.11) mg/dL Est GFR ( Amer) (> 60) Est GFR (Non-Af Amer) (> 60) BUN/Creatinine Ratio (6-26) Glucose (70-99) mg/dL POC Glucose 229 H 174 H (58-89) Calculated Osmolality (280-300) Calcium (8.6-10.8) mg/dL Total Bilirubin (0.2-1.2) mg/dL Direct Bilirubin (0.0-0.5) mg/dL Indirect Bilirubin (0.0-1.2) mg/dL AST (5-34) Units/L ALT (0-55) Units/L Alkaline Phosphatase (38-126) Units/L Serum Total Protein (6.0-8.3) g/dL Albumin (3.5-5.0) g/dL Globulin (2.4-3.5) g/dL Albumin/Globulin Ratio (1.1-2.2) TSH (0.350-4.840) mcIU/mL Urine Color (Yellow) Urine Clarity (Clear) Urine pH (5.0-8.0) pH Units Ur Specific [place] (1.010-1.025) Urine Protein (Neg-Trace) mg/dL Urine Glucose (UA) (Normal) mg/dL Urine Ketones (Negative) mg/dL Urine Blood (Negative) Urine Nitrite (Negative) Urine Bilirubin (Negative) Urine Urobilinogen (Normal) mg/dL Ur Leukocyte Esterase (Negative) Urine Microscopic RBC (0-3) per hpf Urine Microscopic WBC (0-3) per hpf Ur Squamous Epith Cells (None-Few) per lpf Ur Renal Epithelial Cell (None-Few) per hpf Urine Bacteria (None-Few) per hpf Ur Culture Indicated? (NO) Vancomycin Trough (10-20) mcg/mL Random Vancomycin mcg/mL 08/18/16 08/18/16 08/18/16 Range/Units 05:20 06:49 11:37 WBC (4.3-11.1) K/mcL RBC (3.82-4.97) M/mcL Hgb (11.5-15.4) g/dL Hct (35.3-44.9) % MCV (83.0-100.0) fL MCH (28.0-33.3) pg MCHC (31.6-35.5) g/dL RDW (11.5-14.5) % Plt Count (140-400) K/mcL MPV (9.4-12.4) fL Immature Gran % (0-4) % Seg Neutrophils % % Lymphocytes % % Monocytes % % Eosinophils % % Basophils % % Neutrophils # (1.6-8.9) K/mcL Lymphocytes # (0.6-4.6) K/mcL Monocytes # (0.0-1.3) K/mcL Eosinophils # (0.0-0.6) K/mcL Basophils # (0.0-0.2) K/mcL Sodium 137 (136-145) mEq/L Potassium 4.8 H (3.5-4.5) mEq/L Chloride 98 (98-109) mEq/L Carbon Dioxide 28 (19-29) mEq/L BUN 45 H (7-20) mg/dL Creatinine 1.59 H (0.57-1.11) mg/dL Est GFR ( Amer) 38 L (> 60) Est GFR (Non-Af Amer) 31 L (> 60) BUN/Creatinine Ratio 28 H (6-26) Glucose 168 H (70-99) mg/dL POC Glucose 171 H 190 H (58-89) Calculated Osmolality 299 (280-300) Calcium 9.5 (8.6-10.8) mg/dL Total Bilirubin (0.2-1.2) mg/dL Direct Bilirubin (0.0-0.5) mg/dL Indirect Bilirubin (0.0-1.2) mg/dL AST (5-34) Units/L ALT (0-55) Units/L Alkaline Phosphatase (38-126) Units/L Serum Total Protein (6.0-8.3) g/dL Albumin (3.5-5.0) g/dL Globulin (2.4-3.5) g/dL Albumin/Globulin Ratio (1.1-2.2) TSH (0.350-4.840) mcIU/mL Urine Color (Yellow) Urine Clarity (Clear) Urine pH (5.0-8.0) pH Units Ur Specific [place] (1.010-1.025) Urine Protein (Neg-Trace) mg/dL Urine Glucose (UA) (Normal) mg/dL Urine Ketones (Negative) mg/dL Urine Blood (Negative) Urine Nitrite (Negative) Urine Bilirubin (Negative) Urine Urobilinogen (Normal) mg/dL Ur Leukocyte Esterase (Negative) Urine Microscopic RBC (0-3) per hpf Urine Microscopic WBC (0-3) per hpf Ur Squamous Epith Cells (None-Few) per lpf Ur Renal Epithelial Cell (None-Few) per hpf Urine Bacteria (None-Few) per hpf Ur Culture Indicated? (NO) Vancomycin Trough (10-20) mcg/mL Random Vancomycin mcg/mL 08/18/16 08/18/16 08/19/16 Range/Units 16:29 20:35 06:41 WBC (4.3-11.1) K/mcL RBC (3.82-4.97) M/mcL Hgb (11.5-15.4) g/dL Hct (35.3-44.9) % MCV (83.0-100.0) fL MCH (28.0-33.3) pg MCHC (31.6-35.5) g/dL RDW (11.5-14.5) % Plt Count (140-400) K/mcL MPV (9.4-12.4) fL Immature Gran % (0-4) % Seg Neutrophils % % Lymphocytes % % Monocytes % % Eosinophils % % Basophils % % Neutrophils # (1.6-8.9) K/mcL Lymphocytes # (0.6-4.6) K/mcL Monocytes # (0.0-1.3) K/mcL Eosinophils # (0.0-0.6) K/mcL Basophils # (0.0-0.2) K/mcL Sodium (136-145) mEq/L Potassium (3.5-4.5) mEq/L Chloride (98-109) mEq/L Carbon Dioxide (19-29) mEq/L BUN (7-20) mg/dL Creatinine (0.57-1.11) mg/dL Est GFR ( Amer) (> 60) Est GFR (Non-Af Amer) (> 60) BUN/Creatinine Ratio (6-26) Glucose (70-99) mg/dL POC Glucose 266 H 186 H 197 H (58-89) Calculated Osmolality (280-300) Calcium (8.6-10.8) mg/dL Total Bilirubin (0.2-1.2) mg/dL Direct Bilirubin (0.0-0.5) mg/dL Indirect Bilirubin (0.0-1.2) mg/dL AST (5-34) Units/L ALT (0-55) Units/L Alkaline Phosphatase (38-126) Units/L Serum Total Protein (6.0-8.3) g/dL Albumin (3.5-5.0) g/dL Globulin (2.4-3.5) g/dL Albumin/Globulin Ratio (1.1-2.2) TSH (0.350-4.840) mcIU/mL Urine Color (Yellow) Urine Clarity (Clear) Urine pH (5.0-8.0) pH Units Ur Specific [place] (1.010-1.025) Urine Protein (Neg-Trace) mg/dL Urine Glucose (UA) (Normal) mg/dL Urine Ketones (Negative) mg/dL Urine Blood (Negative) Urine Nitrite (Negative) Urine Bilirubin (Negative) Urine Urobilinogen (Normal) mg/dL Ur Leukocyte Esterase (Negative) Urine Microscopic RBC (0-3) per hpf Urine Microscopic WBC (0-3) per hpf Ur Squamous Epith Cells (None-Few) per lpf Ur Renal Epithelial Cell (None-Few) per hpf Urine Bacteria (None-Few) per hpf Ur Culture Indicated? (NO) Vancomycin Trough (10-20) mcg/mL Random Vancomycin mcg/mL 08/19/16 08/19/16 08/19/16 Range/Units 10:38 10:38 10:38 WBC 13.7 H (4.3-11.1) K/mcL RBC 3.32 L (3.82-4.97) M/mcL Hgb 9.7 L (11.5-15.4) g/dL Hct 28.6 L (35.3-44.9) % MCV 86.1 (83.0-100.0) fL MCH 29.2 (28.0-33.3) pg MCHC 33.9 (31.6-35.5) g/dL RDW 14.0 (11.5-14.5) % Plt Count 470 H (140-400) K/mcL MPV 9.0 L (9.4-12.4) fL Immature Gran % 1.0 (0-4) % Seg Neutrophils % 73.0 % Lymphocytes % 12.1 % Monocytes % 8.0 % Eosinophils % 5.2 % Basophils % 0.7 % Neutrophils # 10.0 H (1.6-8.9) K/mcL Lymphocytes # 1.7 (0.6-4.6) K/mcL Monocytes # 1.1 (0.0-1.3) K/mcL Eosinophils # 0.7 H (0.0-0.6) K/mcL Basophils # 0.1 (0.0-0.2) K/mcL Sodium 138 (136-145) mEq/L Potassium 4.8 H (3.5-4.5) mEq/L Chloride 101 (98-109) mEq/L Carbon Dioxide 27 (19-29) mEq/L BUN 52 H (7-20) mg/dL Creatinine 1.76 H (0.57-1.11) mg/dL Est GFR ( Amer) 34 L (> 60) Est GFR (Non-Af Amer) 28 L (> 60) BUN/Creatinine Ratio 30 H (6-26) Glucose 137 H (70-99) mg/dL POC Glucose (58-89) Calculated Osmolality 302 H (280-300) Calcium 9.0 (8.6-10.8) mg/dL Total Bilirubin (0.2-1.2) mg/dL Direct Bilirubin (0.0-0.5) mg/dL Indirect Bilirubin (0.0-1.2) mg/dL AST (5-34) Units/L ALT (0-55) Units/L Alkaline Phosphatase (38-126) Units/L Serum Total Protein (6.0-8.3) g/dL Albumin (3.5-5.0) g/dL Globulin (2.4-3.5) g/dL Albumin/Globulin Ratio (1.1-2.2) TSH (0.350-4.840) mcIU/mL Urine Color (Yellow) Urine Clarity (Clear) Urine pH (5.0-8.0) pH Units Ur Specific Beeler (1.010-1.025) Urine Protein (Neg-Trace) mg/dL Urine Glucose (UA) (Normal) mg/dL Urine Ketones (Negative) mg/dL Urine Blood (Negative) Urine Nitrite (Negative) Urine Bilirubin (Negative) Urine Urobilinogen (Normal) mg/dL Ur Leukocyte Esterase (Negative) Urine Microscopic RBC (0-3) per hpf Urine Microscopic WBC (0-3) per hpf Ur Squamous Epith Cells (None-Few) per lpf Ur Renal Epithelial Cell (None-Few) per hpf Urine Bacteria (None-Few) per hpf Ur Culture Indicated? (NO) Vancomycin Trough 16.3 (10-20) mcg/mL Random Vancomycin mcg/mL 08/19/16 08/19/16 08/19/16 Range/Units 10:38 16:50 21:10 WBC (4.3-11.1) K/mcL RBC (3.82-4.97) M/mcL Hgb (11.5-15.4) g/dL Hct (35.3-44.9) % MCV (83.0-100.0) fL MCH (28.0-33.3) pg MCHC (31.6-35.5) g/dL RDW (11.5-14.5) % Plt Count (140-400) K/mcL MPV (9.4-12.4) fL Immature Gran % (0-4) % Seg Neutrophils % % Lymphocytes % % Monocytes % % Eosinophils % % Basophils % % Neutrophils # (1.6-8.9) K/mcL Lymphocytes # (0.6-4.6) K/mcL Monocytes # (0.0-1.3) K/mcL Eosinophils # (0.0-0.6) K/mcL Basophils # (0.0-0.2) K/mcL Sodium (136-145) mEq/L Potassium (3.5-4.5) mEq/L Chloride (98-109) mEq/L Carbon Dioxide (19-29) mEq/L BUN (7-20) mg/dL Creatinine (0.57-1.11) mg/dL Est GFR ( Amer) (> 60) Est GFR (Non-Af Amer) (> 60) BUN/Creatinine Ratio (6-26) Glucose (70-99) mg/dL POC Glucose 145 H 132 H (58-89) Calculated Osmolality (280-300) Calcium (8.6-10.8) mg/dL Total Bilirubin 0.3 (0.2-1.2) mg/dL Direct Bilirubin 0.1 (0.0-0.5) mg/dL Indirect Bilirubin 0.2 (0.0-1.2) mg/dL AST 14 (5-34) Units/L ALT 9 (0-55) Units/L Alkaline Phosphatase 92 (38-126) Units/L Serum Total Protein 6.2 (6.0-8.3) g/dL Albumin 2.7 L (3.5-5.0) g/dL Globulin 3.5 (2.4-3.5) g/dL Albumin/Globulin Ratio 0.8 L (1.1-2.2) TSH 1.631 (0.350-4.840) mcIU/mL Urine Color (Yellow) Urine Clarity (Clear) Urine pH (5.0-8.0) pH Units Ur Specific Beeler (1.010-1.025) Urine Protein (Neg-Trace) mg/dL Urine Glucose (UA) (Normal) mg/dL Urine Ketones (Negative) mg/dL Urine Blood (Negative) Urine Nitrite (Negative) Urine Bilirubin (Negative) Urine Urobilinogen (Normal) mg/dL Ur Leukocyte Esterase (Negative) Urine Microscopic RBC (0-3) per hpf Urine Microscopic WBC (0-3) per hpf Ur Squamous Epith Cells (None-Few) per lpf Ur Renal Epithelial Cell (None-Few) per hpf Urine Bacteria (None-Few) per hpf Ur Culture Indicated? (NO) Vancomycin Trough (10-20) mcg/mL Random Vancomycin mcg/mL 08/20/16 08/20/16 08/20/16 Range/Units 05:00 05:00 07:42 WBC 12.1 H (4.3-11.1) K/mcL RBC 3.44 L (3.82-4.97) M/mcL Hgb 10.0 L (11.5-15.4) g/dL Hct 29.9 L (35.3-44.9) % MCV 86.9 (83.0-100.0) fL MCH 29.1 (28.0-33.3) pg MCHC 33.4 (31.6-35.5) g/dL RDW 14.0 (11.5-14.5) % Plt Count 469 H (140-400) K/mcL MPV 9.2 L (9.4-12.4) fL Immature Gran % 0.9 (0-4) % Seg Neutrophils % 74.2 % Lymphocytes % 10.2 % Monocytes % 9.1 % Eosinophils % 4.8 % Basophils % 0.8 % Neutrophils # 9.0 H (1.6-8.9) K/mcL Lymphocytes # 1.2 (0.6-4.6) K/mcL Monocytes # 1.1 (0.0-1.3) K/mcL Eosinophils # 0.6 (0.0-0.6) K/mcL Basophils # 0.1 (0.0-0.2) K/mcL Sodium 141 (136-145) mEq/L Potassium 4.4 (3.5-4.5) mEq/L Chloride 105 (98-109) mEq/L Carbon Dioxide 26 (19-29) mEq/L BUN 39 H D (7-20) mg/dL Creatinine 1.54 H (0.57-1.11) mg/dL Est GFR ( Amer) 39 L (> 60) Est GFR (Non-Af Amer) 33 L (> 60) BUN/Creatinine Ratio 25 (6-26) Glucose 155 H (70-99) mg/dL POC Glucose 193 H (58-89) Calculated Osmolality 305 H (280-300) Calcium 9.3 (8.6-10.8) mg/dL Total Bilirubin (0.2-1.2) mg/dL Direct Bilirubin (0.0-0.5) mg/dL Indirect Bilirubin (0.0-1.2) mg/dL AST (5-34) Units/L ALT (0-55) Units/L Alkaline Phosphatase (38-126) Units/L Serum Total Protein (6.0-8.3) g/dL Albumin (3.5-5.0) g/dL Globulin (2.4-3.5) g/dL Albumin/Globulin Ratio (1.1-2.2) TSH (0.350-4.840) mcIU/mL Urine Color (Yellow) Urine Clarity (Clear) Urine pH (5.0-8.0) pH Units Ur Specific Beeler (1.010-1.025) Urine Protein (Neg-Trace) mg/dL Urine Glucose (UA) (Normal) mg/dL Urine Ketones (Negative) mg/dL Urine Blood (Negative) Urine Nitrite (Negative) Urine Bilirubin (Negative) Urine Urobilinogen (Normal) mg/dL Ur Leukocyte Esterase (Negative) Urine Microscopic RBC (0-3) per hpf Urine Microscopic WBC (0-3) per hpf Ur Squamous Epith Cells (None-Few) per lpf Ur Renal Epithelial Cell (None-Few) per hpf Urine Bacteria (None-Few) per hpf Ur Culture Indicated? (NO) Vancomycin Trough (10-20) mcg/mL Random Vancomycin mcg/mL 08/20/16 08/20/16 08/20/16 Range/Units 11:23 12:02 16:40 WBC (4.3-11.1) K/mcL RBC (3.82-4.97) M/mcL Hgb (11.5-15.4) g/dL Hct (35.3-44.9) % MCV (83.0-100.0) fL MCH (28.0-33.3) pg MCHC (31.6-35.5) g/dL RDW (11.5-14.5) % Plt Count (140-400) K/mcL MPV (9.4-12.4) fL Immature Gran % (0-4) % Seg Neutrophils % % Lymphocytes % % Monocytes % % Eosinophils % % Basophils % % Neutrophils # (1.6-8.9) K/mcL Lymphocytes # (0.6-4.6) K/mcL Monocytes # (0.0-1.3) K/mcL Eosinophils # (0.0-0.6) K/mcL Basophils # (0.0-0.2) K/mcL Sodium (136-145) mEq/L Potassium (3.5-4.5) mEq/L Chloride (98-109) mEq/L Carbon Dioxide (19-29) mEq/L BUN (7-20) mg/dL Creatinine (0.57-1.11) mg/dL Est GFR ( Amer) (> 60) Est GFR (Non-Af Amer) (> 60) BUN/Creatinine Ratio (6-26) Glucose (70-99) mg/dL POC Glucose 150 H 135 H (58-89) Calculated Osmolality (280-300) Calcium (8.6-10.8) mg/dL Total Bilirubin (0.2-1.2) mg/dL Direct Bilirubin (0.0-0.5) mg/dL Indirect Bilirubin (0.0-1.2) mg/dL AST (5-34) Units/L ALT (0-55) Units/L Alkaline Phosphatase (38-126) Units/L Serum Total Protein (6.0-8.3) g/dL Albumin (3.5-5.0) g/dL Globulin (2.4-3.5) g/dL Albumin/Globulin Ratio (1.1-2.2) TSH (0.350-4.840) mcIU/mL Urine Color (Yellow) Urine Clarity (Clear) Urine pH (5.0-8.0) pH Units Ur Specific Beeler (1.010-1.025) Urine Protein (Neg-Trace) mg/dL Urine Glucose (UA) (Normal) mg/dL Urine Ketones (Negative) mg/dL Urine Blood (Negative) Urine Nitrite (Negative) Urine Bilirubin (Negative) Urine Urobilinogen (Normal) mg/dL Ur Leukocyte Esterase (Negative) Urine Microscopic RBC (0-3) per hpf Urine Microscopic WBC (0-3) per hpf Ur Squamous Epith Cells (None-Few) per lpf Ur Renal Epithelial Cell (None-Few) per hpf Urine Bacteria (None-Few) per hpf Ur Culture Indicated? (NO) Vancomycin Trough (10-20) mcg/mL Random Vancomycin 23.8 mcg/mL 08/20/16 08/21/16 08/21/16 Range/Units 20:37 05:20 05:20 WBC 10.9 (4.3-11.1) K/mcL RBC 3.48 L (3.82-4.97) M/mcL Hgb 10.1 L (11.5-15.4) g/dL Hct 30.7 L (35.3-44.9) % MCV 88.2 (83.0-100.0) fL MCH 29.0 (28.0-33.3) pg MCHC 32.9 (31.6-35.5) g/dL RDW 13.9 (11.5-14.5) % Plt Count 457 H (140-400) K/mcL MPV 9.1 L (9.4-12.4) fL Immature Gran % 0.6 (0-4) % Seg Neutrophils % 68.7 % Lymphocytes % 15.2 % Monocytes % 10.4 % Eosinophils % 4.4 % Basophils % 0.7 % Neutrophils # 7.5 (1.6-8.9) K/mcL Lymphocytes # 1.7 (0.6-4.6) K/mcL Monocytes # 1.1 (0.0-1.3) K/mcL Eosinophils # 0.5 (0.0-0.6) K/mcL Basophils # 0.1 (0.0-0.2) K/mcL Sodium 143 (136-145) mEq/L Potassium 4.2 (3.5-4.5) mEq/L Chloride 109 (98-109) mEq/L Carbon Dioxide 25 (19-29) mEq/L BUN 29 H D (7-20) mg/dL Creatinine 1.39 H (0.57-1.11) mg/dL Est GFR ( Amer) 44 L (> 60) Est GFR (Non-Af Amer) 37 L (> 60) BUN/Creatinine Ratio 21 (6-26) Glucose 190 H (70-99) mg/dL POC Glucose 149 H (58-89) Calculated Osmolality 307 H (280-300) Calcium 9.3 (8.6-10.8) mg/dL Total Bilirubin (0.2-1.2) mg/dL Direct Bilirubin (0.0-0.5) mg/dL Indirect Bilirubin (0.0-1.2) mg/dL AST (5-34) Units/L ALT (0-55) Units/L Alkaline Phosphatase (38-126) Units/L Serum Total Protein (6.0-8.3) g/dL Albumin (3.5-5.0) g/dL Globulin (2.4-3.5) g/dL Albumin/Globulin Ratio (1.1-2.2) TSH (0.350-4.840) mcIU/mL Urine Color (Yellow) Urine Clarity (Clear) Urine pH (5.0-8.0) pH Units Ur Specific Beeler (1.010-1.025) Urine Protein (Neg-Trace) mg/dL Urine Glucose (UA) (Normal) mg/dL Urine Ketones (Negative) mg/dL Urine Blood (Negative) Urine Nitrite (Negative) Urine Bilirubin (Negative) Urine Urobilinogen (Normal) mg/dL Ur Leukocyte Esterase (Negative) Urine Microscopic RBC (0-3) per hpf Urine Microscopic WBC (0-3) per hpf Ur Squamous Epith Cells (None-Few) per lpf Ur Renal Epithelial Cell (None-Few) per hpf Urine Bacteria (None-Few) per hpf Ur Culture Indicated? (NO) Vancomycin Trough (10-20) mcg/mL Random Vancomycin mcg/mL 08/21/16 08/21/16 08/21/16 Range/Units 07:41 11:54 16:37 WBC (4.3-11.1) K/mcL RBC (3.82-4.97) M/mcL Hgb (11.5-15.4) g/dL Hct (35.3-44.9) % MCV (83.0-100.0) fL MCH (28.0-33.3) pg MCHC (31.6-35.5) g/dL RDW (11.5-14.5) % Plt Count (140-400) K/mcL MPV (9.4-12.4) fL Immature Gran % (0-4) % Seg Neutrophils % % Lymphocytes % % Monocytes % % Eosinophils % % Basophils % % Neutrophils # (1.6-8.9) K/mcL Lymphocytes # (0.6-4.6) K/mcL Monocytes # (0.0-1.3) K/mcL Eosinophils # (0.0-0.6) K/mcL Basophils # (0.0-0.2) K/mcL Sodium (136-145) mEq/L Potassium (3.5-4.5) mEq/L Chloride (98-109) mEq/L Carbon Dioxide (19-29) mEq/L BUN (7-20) mg/dL Creatinine (0.57-1.11) mg/dL Est GFR ( Amer) (> 60) Est GFR (Non-Af Amer) (> 60) BUN/Creatinine Ratio (6-26) Glucose (70-99) mg/dL POC Glucose 144 H 180 H 137 H (58-89) Calculated Osmolality (280-300) Calcium (8.6-10.8) mg/dL Total Bilirubin (0.2-1.2) mg/dL Direct Bilirubin (0.0-0.5) mg/dL Indirect Bilirubin (0.0-1.2) mg/dL AST (5-34) Units/L ALT (0-55) Units/L Alkaline Phosphatase (38-126) Units/L Serum Total Protein (6.0-8.3) g/dL Albumin (3.5-5.0) g/dL Globulin (2.4-3.5) g/dL Albumin/Globulin Ratio (1.1-2.2) TSH (0.350-4.840) mcIU/mL Urine Color (Yellow) Urine Clarity (Clear) Urine pH (5.0-8.0) pH Units Ur Specific Beeler (1.010-1.025) Urine Protein (Neg-Trace) mg/dL Urine Glucose (UA) (Normal) mg/dL Urine Ketones (Negative) mg/dL Urine Blood (Negative) Urine Nitrite (Negative) Urine Bilirubin (Negative) Urine Urobilinogen (Normal) mg/dL Ur Leukocyte Esterase (Negative) Urine Microscopic RBC (0-3) per hpf Urine Microscopic WBC (0-3) per hpf Ur Squamous Epith Cells (None-Few) per lpf Ur Renal Epithelial Cell (None-Few) per hpf Urine Bacteria (None-Few) per hpf Ur Culture Indicated? (NO) Vancomycin Trough (10-20) mcg/mL Random Vancomycin mcg/mL 08/21/16 08/22/16 08/22/16 Range/Units 20:14 07:56 11:55 WBC (4.3-11.1) K/mcL RBC (3.82-4.97) M/mcL Hgb (11.5-15.4) g/dL Hct (35.3-44.9) % MCV (83.0-100.0) fL MCH (28.0-33.3) pg MCHC (31.6-35.5) g/dL RDW (11.5-14.5) % Plt Count (140-400) K/mcL MPV (9.4-12.4) fL Immature Gran % (0-4) % Seg Neutrophils % % Lymphocytes % % Monocytes % % Eosinophils % % Basophils % % Neutrophils # (1.6-8.9) K/mcL Lymphocytes # (0.6-4.6) K/mcL Monocytes # (0.0-1.3) K/mcL Eosinophils # (0.0-0.6) K/mcL Basophils # (0.0-0.2) K/mcL Sodium (136-145) mEq/L Potassium (3.5-4.5) mEq/L Chloride (98-109) mEq/L Carbon Dioxide (19-29) mEq/L BUN (7-20) mg/dL Creatinine (0.57-1.11) mg/dL Est GFR ( Amer) (> 60) Est GFR (Non-Af Amer) (> 60) BUN/Creatinine Ratio (6-26) Glucose (70-99) mg/dL POC Glucose 136 H 127 H 129 H (58-89) Calculated Osmolality (280-300) Calcium (8.6-10.8) mg/dL Total Bilirubin (0.2-1.2) mg/dL Direct Bilirubin (0.0-0.5) mg/dL Indirect Bilirubin (0.0-1.2) mg/dL AST (5-34) Units/L ALT (0-55) Units/L Alkaline Phosphatase (38-126) Units/L Serum Total Protein (6.0-8.3) g/dL Albumin (3.5-5.0) g/dL Globulin (2.4-3.5) g/dL Albumin/Globulin Ratio (1.1-2.2) TSH (0.350-4.840) mcIU/mL Urine Color (Yellow) Urine Clarity (Clear) Urine pH (5.0-8.0) pH Units Ur Specific Beeler (1.010-1.025) Urine Protein (Neg-Trace) mg/dL Urine Glucose (UA) (Normal) mg/dL Urine Ketones (Negative) mg/dL Urine Blood (Negative) Urine Nitrite (Negative) Urine Bilirubin (Negative) Urine Urobilinogen (Normal) mg/dL Ur Leukocyte Esterase (Negative) Urine Microscopic RBC (0-3) per hpf Urine Microscopic WBC (0-3) per hpf Ur Squamous Epith Cells (None-Few) per lpf Ur Renal Epithelial Cell (None-Few) per hpf Urine Bacteria (None-Few) per hpf Ur Culture Indicated? (NO) Vancomycin Trough (10-20) mcg/mL Random Vancomycin mcg/mL 08/22/16 08/22/16 08/23/16 Range/Units 15:50 20:17 07:51 WBC (4.3-11.1) K/mcL RBC (3.82-4.97) M/mcL Hgb (11.5-15.4) g/dL Hct (35.3-44.9) % MCV (83.0-100.0) fL MCH (28.0-33.3) pg MCHC (31.6-35.5) g/dL RDW (11.5-14.5) % Plt Count (140-400) K/mcL MPV (9.4-12.4) fL Immature Gran % (0-4) % Seg Neutrophils % % Lymphocytes % % Monocytes % % Eosinophils % % Basophils % % Neutrophils # (1.6-8.9) K/mcL Lymphocytes # (0.6-4.6) K/mcL Monocytes # (0.0-1.3) K/mcL Eosinophils # (0.0-0.6) K/mcL Basophils # (0.0-0.2) K/mcL Sodium (136-145) mEq/L Potassium (3.5-4.5) mEq/L Chloride (98-109) mEq/L Carbon Dioxide (19-29) mEq/L BUN (7-20) mg/dL Creatinine (0.57-1.11) mg/dL Est GFR ( Amer) (> 60) Est GFR (Non-Af Amer) (> 60) BUN/Creatinine Ratio (6-26) Glucose (70-99) mg/dL POC Glucose 121 H 311 H 141 H (58-89) Calculated Osmolality (280-300) Calcium (8.6-10.8) mg/dL Total Bilirubin (0.2-1.2) mg/dL Direct Bilirubin (0.0-0.5) mg/dL Indirect Bilirubin (0.0-1.2) mg/dL AST (5-34) Units/L ALT (0-55) Units/L Alkaline Phosphatase (38-126) Units/L Serum Total Protein (6.0-8.3) g/dL Albumin (3.5-5.0) g/dL Globulin (2.4-3.5) g/dL Albumin/Globulin Ratio (1.1-2.2) TSH (0.350-4.840) mcIU/mL Urine Color (Yellow) Urine Clarity (Clear) Urine pH (5.0-8.0) pH Units Ur Specific Beeler (1.010-1.025) Urine Protein (Neg-Trace) mg/dL Urine Glucose (UA) (Normal) mg/dL Urine Ketones (Negative) mg/dL Urine Blood (Negative) Urine Nitrite (Negative) Urine Bilirubin (Negative) Urine Urobilinogen (Normal) mg/dL Ur Leukocyte Esterase (Negative) Urine Microscopic RBC (0-3) per hpf Urine Microscopic WBC (0-3) per hpf Ur Squamous Epith Cells (None-Few) per lpf Ur Renal Epithelial Cell (None-Few) per hpf Urine Bacteria (None-Few) per hpf Ur Culture Indicated? (NO) Vancomycin Trough (10-20) mcg/mL Random Vancomycin mcg/mL 08/23/16 08/23/16 08/23/16 Range/Units 12:02 16:52 20:23 WBC (4.3-11.1) K/mcL RBC (3.82-4.97) M/mcL Hgb (11.5-15.4) g/dL Hct (35.3-44.9) % MCV (83.0-100.0) fL MCH (28.0-33.3) pg MCHC (31.6-35.5) g/dL RDW (11.5-14.5) % Plt Count (140-400) K/mcL MPV (9.4-12.4) fL Immature Gran % (0-4) % Seg Neutrophils % % Lymphocytes % % Monocytes % % Eosinophils % % Basophils % % Neutrophils # (1.6-8.9) K/mcL Lymphocytes # (0.6-4.6) K/mcL Monocytes # (0.0-1.3) K/mcL Eosinophils # (0.0-0.6) K/mcL Basophils # (0.0-0.2) K/mcL Sodium (136-145) mEq/L Potassium (3.5-4.5) mEq/L Chloride (98-109) mEq/L Carbon Dioxide (19-29) mEq/L BUN (7-20) mg/dL Creatinine (0.57-1.11) mg/dL Est GFR ( Amer) (> 60) Est GFR (Non-Af Amer) (> 60) BUN/Creatinine Ratio (6-26) Glucose (70-99) mg/dL POC Glucose 70 105 H 142 H (58-89) Calculated Osmolality (280-300) Calcium (8.6-10.8) mg/dL Total Bilirubin (0.2-1.2) mg/dL Direct Bilirubin (0.0-0.5) mg/dL Indirect Bilirubin (0.0-1.2) mg/dL AST (5-34) Units/L ALT (0-55) Units/L Alkaline Phosphatase (38-126) Units/L Serum Total Protein (6.0-8.3) g/dL Albumin (3.5-5.0) g/dL Globulin (2.4-3.5) g/dL Albumin/Globulin Ratio (1.1-2.2) TSH (0.350-4.840) mcIU/mL Urine Color (Yellow) Urine Clarity (Clear) Urine pH (5.0-8.0) pH Units Ur Specific Beeler (1.010-1.025) Urine Protein (Neg-Trace) mg/dL Urine Glucose (UA) (Normal) mg/dL Urine Ketones (Negative) mg/dL Urine Blood (Negative) Urine Nitrite (Negative) Urine Bilirubin (Negative) Urine Urobilinogen (Normal) mg/dL Ur Leukocyte Esterase (Negative) Urine Microscopic RBC (0-3) per hpf Urine Microscopic WBC (0-3) per hpf Ur Squamous Epith Cells (None-Few) per lpf Ur Renal Epithelial Cell (None-Few) per hpf Urine Bacteria (None-Few) per hpf Ur Culture Indicated? (NO) Vancomycin Trough (10-20) mcg/mL Random Vancomycin mcg/mL Chest X-Ray 08/13/16 07:19 IMPRESSION: 1. Cardiomegaly and pulmonary edema with small pleural effusions compatible with CHF. 2. Nondisplaced right lateral 10th rib fracture. D/ / Oral Quintanilla MD / Oral Quintanilla MD Interpreting Provider: Oral Quintanilla MD Chest CT 08/16/16 12:03 IMPRESSION: Nonspecific patchy multifocal airspace disease with mosaic attenuation throughout the lungs. Smooth interlobular septal thickening is noted. Pulmonary edema is suspected. Superimposed multifocal airspace disease such as pneumonia is also suspected. Radiographic follow-up is recommended. Mosaic attenuation of the lung parenchyma could reflect distal airways disease. D/ / Marco Nugent MD / Marco Nugent MD Interpreting Provider: Marco Nugent MD Head CT 08/19/16 08:34 IMPRESSION: 1. Motion partially limits evaluation. 2. No convincing acute intracranial abnormality. 3. Global parenchymal volume loss with chronic microvascular ischemic change. 4. Atherosclerosis. D/ / Kp Holguin MD / Kp Holguin MD Interpreting Provider: Kp Holguin MD Date of admission: 08/10/16 19:45 Primary care physician: Jaren Coburn MD Consults: 08/10/16 22:10 Consult to Occupational Therapy [CONS] Routine Comment: Evaluate, develop and implement POC Reason for Consult: Evaluate and treat Consult to Physical Therapy [CONS] Routine Comment: Evaluate, develop and implement POC Reason for Consult: Evaluate and treat Consult to Recreational Therapy [CONS] Routine Comment: Evaluate, develop and implement POC Consult to Outdoor Adventure Instructor [CONS] Routine Reason for SW Consult: Evaluate and treat; may already be getting Hospice services. Consult to Speech Therapy [CONS] Routine Comment: Evaluate, develop and implement POC Reason for Consult: speech impairment Call Completed: Yes 08/13/16 18:43 Consult to Psychology [CONS] Routine Consulting Provider: Cris Banks Reason for Consult: inpatient rehabilitation Call Completed: No 08/13/16 18:47 Consult to Physician [CONS] Routine Consulting Provider: Fadumo Lowe Reason for Consult: inpatient rehab Call Completed: No Discharging clinician: Jaren Coburn Anticipated date of discharge: 08/24/16 - Patient Status Disposition: Transfer SNF Condition: Good Functional capacity at discharge: uses cane/walker Overall status at discharge: patient is not back to baseline - Discharge Instructions Follow Up With: Modesta Wang, OUTBOARD MOTOR ASSEMBLER [Advanced Practice Nurse] - - Diet and Activity Activity: ambulate only with your walker, as per physical therapy, wear oxygen at all times Diet: diabetic diet Interval History: See the progress note from earlier today. Hospital course: Ms. 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 She was seen and worked up at [facility] in [place]. She was transferred to a rehabilitation center for ongoing PT, OT, RT and speech therapy. She was going through inpatient rehabilitation services and improved to the point where it is time to move on to a usp facility, [facility]. However, her leukocytosis since admission worsened. Urine testing was negative. Chest x-ray was negative for acute change. However on CT scan of the lungs she was found to have pneumonia. We were uncertain as to whether she had this from home or acquired at [facility]. She was placed on triple antibiotics intravenously for at least 5 days. Her blood cultures were negative. She never had a fever. Her pulmonary status is now much improved. However, about 2 days into the IV antibiotic therapy she developed acute delirium with confusion, verbal and responsive, confused, tried to get out of bed, would not eat anything, hypersomnolent, etc. She was given a dose of Ativan that had been written for when necessary to help calm her down and she became quite somnolent with that. Even after that wore off she was not responding and was confused. She was given Haldol on 2 evenings I am to help her sleep. She then awoke and has improved since that time. She is not just pain with therapies, she is eating well, etc. However she gets aggravated and cantankerous and fixated about certain things and has to be redirected at times. She is overall markedly improved though, but does not seem to be quite back to her post-CVA status of the week ago. She needs continued 24-hour supervision. She needs continued physical and occupational therapies. We are awaiting insurance authorization to transfer her to [facility]. Please see the list of diagnoses for more specific information regarding the hospital course. - Time Spent with Patient Total time spent providing and/or coordinating discharge services: Less than 30 minutes - Constitutional Vitals: Temp Pulse Resp BP Pulse Ox 98.1 F 72 16 157/52 96 08/16/16 07:53 08/16/16 07:53 08/16/16 07:53 08/16/16 07:53 08/16/16 07:53 General appearance: Present: A&O X 1, no acute distress, obese. Absent: answers questions appropriately - Eye Eye exam: Present: EOMI Additional comments: Appears to have conjugate gaze, occasional nystagmus of the left eye in left lateral gaze. No dizziness or vertigo symptoms elicited - Respiratory Additional comments: Occasional rhonchi which clears with cough. She has diminished breath sounds but clear. No respiratory distress. - Cardiovascular Cardiovascular exam: Present: RRR, +S1, +S2, systolic murmur (2/6 systolic murmur) - GI/Abdominal GI/Abdominal exam: Present: soft. Absent: mass, tenderness - Extremities Exam Extremities exam: Absent: calf tenderness, pedal edema, tenderness - Neurological Exam Additional comments: Her gait is wide-based but improved and uses a walker. She does have difficulty with short and long-term memory. Please see the psychologist report. She can move all extremities with equal strength bilaterally. No obvious disconjugate gaze currently. Physically she is doing well in her therapies. Cognitively she needs reminders, redirection, etc. She thinks she has been her only one day not 2 weeks, she still does not remind name, she was not sure she was in the hospital last morning. She does recall her nurse practitioner's name, she recalls Dr. Smith of hospice house call, and she certainly remembers Dr. Ludwig her family doctor for many years and looking forward to seeing her at [facility]. I did not do a full Mini-Mental status reevaluation at this time. She is eating well. She is having social conversation now. - Skin Additional comments: Ecchymosis is noted on her left buttock with a hematoma palpable about 3 cm in diameter. This is over the initial tuberosity. She has a skin tear in the left elbow sustained yesterday when she fell getting out of bed. Wound clinic is to reevaluate this today. - VTE Documentation of Mechanical Device: Graduated compression elastic hosiery
[2016-08-16 17:54] LABS: Bilirubin,Urine Negative (Negative); Blood,Urine Negative (Negative); Clarity,Urine Clear (Clear); Color,Urine Yellow (Yellow); Glucose,Urine (UA) Normal (Normal); Ketones,Urine Negative (Negative); Leukocyte Esterase,Urine Small (Negative); Nitrite,Urine Negative (Negative); Protein,Urine 100 mg/dL (Neg-Trace); Specific Gravity,Urine 1.015 (1.010-1.025); Urobilinogen,Urine Normal (Normal)
[2016-08-16 18:05] LABS: Bacteria,Urine Few per hpf (None-Few); RBC,Urine 0-3 per hpf (0-3); Renal Epithelial Cells,Urine Few per hpf (None-Few); Squamous Epithelial Cell,Urine Few per lpf (None-Few)
--- NOTE | 2016-08-16 20:54 | Event Note ---
Date of Encounter: 08/16/16 Time of Encounter: 20:49 The patient has had elevated white blood cell count of 14-15,000 since admission. Urine test was negative for UTI. Her chest x-ray was negative for infiltrate. I ordered a CT scan of the lungs today and she has multifocal infiltrates that could be consistent with pneumonia. She came to us from a hospital so she will have to be treated for presumed healthcare acquired pneumonia. Triple antibiotic treatment with cefepime Levaquin and vancomycin were initiated after blood cultures. The antibiotic not to be adjusted by pharmacy for dosing for her renal failure.
[2016-08-16] MEDS ORDERED: Vancomycin 1,000 MG in D5% in Water 250 ML IVPB SCH (21:00)
[2016-08-16] MEDS: *HR* LORazepam 0.5 MG TABLET PO PRN (22:10)
[2016-08-16] MEDS: Levofloxacin 750 MG/150 ML 750 MG/150 ML BAG IVPB SCH (22:12)
[2016-08-16] MEDS: Vancomycin 1,000 MG in D5% in Water 250 ML IVPB SCH (23:47)
[2016-08-17] MEDS: Cefepime HCl 2,000 MG in D5% in Water (Mini-Bag+) 100 ML IVPB SCH ×3 (00:57→23:56)
[2016-08-17] MEDS: *HR* Enoxaparin 30 MG/0.3 ML SYRINGE SQ SCH (05:23)
[2016-08-17 05:30] LABS: Basophils # 0.1 K/mcL (0.0-0.2); Basophils % 0.5 %; Eosinophils # 0.6 K/mcL (0.0-0.6); Eosinophils % 3.6 %; Hematocrit 30.5 % (35.3-44.9); Hemoglobin 10.1 g/dL (11.5-15.4); Immature Granulocytes % 1.2 % (0-4); Lymphocytes % 12.2 %; Mean Corpuscular HGB Conc 33.1 g/dL (31.6-35.5); Mean Corpuscular Hemoglobin 28.9 pg (28.0-33.3); Mean Corpuscular Volume 87.4 fL (83.0-100.0); Mean Platelet Volume 9.1 fL (9.4-12.4); Monocytes # 1.3 K/mcL (0.0-1.3); Monocytes % 7.9 %; Neutrophils # 12.2 K/mcL (1.6-8.9); Platelet Count 550 K/mcL (140-400); Red Blood Count 3.49 M/mcL (3.82-4.97); Segmented Neutrophils % 74.6 %
[2016-08-17 05:31] LABS: Calcium 9.1 mg/dL (8.6-10.8); Potassium 4.8 mEq/L (3.5-4.5)
[2016-08-17] MEDS: hydrALAZINE 25 MG TABLET PO SCH ×4 (08:15→20:13)
--- NOTE | 2016-08-17 08:32 | Internal Med Progress Note ---
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 Her creatinine is improving. We are avoiding nephrotoxic medications. She is taking fluids well. Her metformin has been held. Qualifiers: Chronic kidney disease stage: stage 3 (moderate) Qualified Code(s): N18.3 - Chronic kidney disease, stage 3 (moderate) (4) Hypertension Current Visit: Yes Status: Acute Assessment and plan: Her hypertension has been under good control most of the time. Occasionally will be in the 150-160 systolic range. Continue her current medication.will hold adjusting medications for now since she has pneumonia and a cva to avoid hypotension Qualifiers: Hypertension type: essential hypertension Qualified Code(s): I10 - Essential (primary) hypertension (5) COPD (chronic obstructive pulmonary disease) Current Visit: Yes Status: Acute Assessment and plan: Her COPD apparently is stable. She continues to be oxygen dependent. She is getting nebulizer treatments. ct of the chest showed pneumonia. Qualifiers: COPD type: unspecified COPD Qualified Code(s): J44.9 - Chronic obstructive pulmonary disease, unspecified (6) Diabetes mellitus Current Visit: Yes Status: Acute Assessment and plan: . Metformin was held because of acute kidney injury. With her sugars elevating , her appetite is good, and she is also getting snacks brought in by family, low-dose glipizide was added. Her last glycohemoglobin at [facility] was 5.6%, at our facility before admission was 6.5%. 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 On cursory examination no obvious gaze palsy. 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 She is now showing marked improvement. She denies any dizziness or double vision. She is improving with her therapies. She still needs standby assistance with dressing and with walking with her walker etc. She still needs ongoing PT and OT, but she is improved and stable enough to move on to ECF. from the cva standpoint but needs iv antibiotics for the pneumonia (9) DVT prophylaxis Current Visit: Yes Status: Inactive (10) Urinary incontinence Current Visit: Yes Status: Acute Assessment and plan: Chronic urinary incontinence at night. She is continent during the day. We will continue frequent toileting. Qualifiers: Urinary Incontinence type: urinary incontinence without sensory awareness Qualified Code(s): N39.42 - Incontinence without sensory awareness (11) Anemia Current Visit: Yes Status: Acute Assessment and plan: Her hemoglobin is stable. No obvious bleeding source. Hemodynamically stable. I do not think she needs further workup or intervention at this time.she was on hospice prior to admission Qualifiers: Anemia type: unspecified type Qualified Code(s): D64.9 - Anemia, unspecified (12) Leukocytosis Current Visit: Yes Status: Acute Assessment and plan: Her white blood cell count is in the 15,000 range. yesterday. now 16. She has had no fever. 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 she is afebrile, but her wbc count increased today. will hold ecf d.c until wbc trending down and treated with the antibiotics. these were started last night - Subjective Interval history: she wants to go home. denies pain, denies cp, sob, n/v, dizzy. she is ambulating with her walker. she is currently in the dining room. she just wants to go home. had cT scan of lungs with pneumonia. she is on 3 antibiotics for this. her wbc has increased. she has been afebrile - Constitutional Vitals: Temp Pulse Resp BP Pulse Ox 98.4 F 66 16 161/55 95 08/16/16 21:00 08/16/16 21:00 08/16/16 21:00 08/16/16 21:00 08/16/16 21:00 General appearance: Present: A&O X 2, no acute distress, obese. Absent: answers questions appropriately - Neck Neck exam general surgery: Present: trachea midline. Absent: tenderness - Respiratory Respiratory exam: Present: CTAB - Cardiovascular Cardiovascular exam: Present: RRR. Absent: systolic murmur - GI/Abdominal GI/Abdominal exam: Present: normal bowel sounds, soft, no peritoneal signs. Absent: distended, tenderness - Extremities Exam Extremities exam: Present: normal capillary refill, warm. Absent: pedal edema - Skin Skin exam: Present: dry, warm. Absent: rash Internal Medicine: Result - Labs CBC & Chem 7: 08/17/16 05:00 08/17/16 05:00 Labs: Short CBC 08/17/16 Range/Units 05:00 WBC 16.4 H (4.3-11.1) K/mcL Hgb 10.1 L (11.5-15.4) g/dL Hct 30.5 L (35.3-44.9) % Plt Count 550 H (140-400) K/mcL Neutrophils # 12.2 H (1.6-8.9) K/mcL BMP 08/17/16 05:00 Sodium 138 Potassium 4.8 H Chloride 99 Carbon Dioxide 31 H BUN 42 H Creatinine 1.45 H Glucose 134 H Calcium 9.1 Urine 08/16/16 Range/Units 17:50 Urine Color Yellow (Yellow) Urine Clarity Clear (Clear) Urine pH 6.0 (5.0-8.0) pH Units Ur Specific [place] 1.015 (1.010-1.025) Urine Protein 100 H (Neg-Trace) mg/dL Urine Glucose (UA) Normal (Normal) mg/dL - Impressions Impressions Chest CT 08/16/16 12:03 IMPRESSION: Nonspecific patchy multifocal airspace disease with mosaic attenuation throughout the lungs. Smooth interlobular septal thickening is noted. Pulmonary edema is suspected. Superimposed multifocal airspace disease such as pneumonia is also suspected. Radiographic follow-up is recommended. Mosaic attenuation of the lung parenchyma could reflect distal airways disease. D/ / Marco Nugent MD / Marco Nugent MD Interpreting Provider: Marco Nugent MD - VTE Documentation of Mechanical Device: Graduated compression elastic hosiery Consult Discharge Plan - Plan Referrals: Modesta Wang, MANAGER RESIDENTIAL [Advanced Practice Nurse] -
[2016-08-17] MEDS: Furosemide 40 MG TABLET PO SCH ×2 (09:34→16:30)
[2016-08-17] MEDS: Cholecalciferol (D-3) 1,000 UNIT TABLET PO SCH (09:34)
[2016-08-17] MEDS: amLODIPine 5 MG TABLET PO SCH (09:35)
[2016-08-17] MEDS: Venlafaxine XR (24 HR) 75 MG CAP.ER.24H PO SCH (09:35)
[2016-08-17] MEDS: Aspirin 81 MG TAB.CHEW PO SCH (09:35)
[2016-08-17] MEDS: *HR* GlipiZIDE 5 MG TABLET PO SCH (09:35)
[2016-08-17] MEDS: Budesonide/Formoterol 80/4.5 MDI IH SCH ×2 (10:33→20:15)
[2016-08-17] MEDS: Albuterol 2.5 MG/3 ML NEBULIZER IH SCH ×4 (10:33→20:14)
[2016-08-17] MEDS: *HR* LORazepam 0.5 MG TABLET PO PRN (20:14)
[2016-08-17] MEDS: Vancomycin 1,000 MG in D5% in Water 250 ML IVPB SCH (22:49)
[2016-08-18] MEDS: *HR* Enoxaparin 30 MG/0.3 ML SYRINGE SQ SCH (05:15)
[2016-08-18 05:35] LABS: Calcium 9.5 mg/dL (8.6-10.8); Potassium 4.8 mEq/L (3.5-4.5)
[2016-08-18 05:42] LABS: Basophils # 0.1 K/mcL (0.0-0.2); Basophils % 0.7 %; Eosinophils # 0.6 K/mcL (0.0-0.6); Eosinophils % 4.6 %; Hematocrit 30.4 % (35.3-44.9); Hemoglobin 10.3 g/dL (11.5-15.4); Immature Granulocytes % 1.2 % (0-4); Lymphocytes # 1.6 K/mcL (0.6-4.6); Lymphocytes % 11.3 %; Mean Corpuscular HGB Conc 33.9 g/dL (31.6-35.5); Mean Corpuscular Hemoglobin 29.2 pg (28.0-33.3); Mean Corpuscular Volume 86.1 fL (83.0-100.0); Mean Platelet Volume 9.1 fL (9.4-12.4); Monocytes # 1.2 K/mcL (0.0-1.3); Monocytes % 8.5 %; Platelet Count 510 K/mcL (140-400); Red Blood Count 3.53 M/mcL (3.82-4.97); Red Cell Distribution Width 14.2 % (11.5-14.5); Segmented Neutrophils % 73.7 %
[2016-08-18 05:44] LABS: Neutrophils # 10.2 K/mcL (1.6-8.9)
[2016-08-18] MEDS: Cholecalciferol (D-3) 1,000 UNIT TABLET PO SCH (09:39)
[2016-08-18] MEDS: Furosemide 40 MG TABLET PO SCH ×2 (09:39→17:13)
[2016-08-18] MEDS: hydrALAZINE 25 MG TABLET PO SCH ×3 (09:39→20:16)
[2016-08-18] MEDS: Venlafaxine XR (24 HR) 75 MG CAP.ER.24H PO SCH (09:40)
[2016-08-18] MEDS: amLODIPine 5 MG TABLET PO SCH (09:40)
[2016-08-18] MEDS: *HR* GlipiZIDE 5 MG TABLET PO SCH (09:40)
[2016-08-18] MEDS: Aspirin 81 MG TAB.CHEW PO SCH (09:40)
[2016-08-18] MEDS: Albuterol 2.5 MG/3 ML NEBULIZER IH SCH ×4 (09:42→20:17)
[2016-08-18] MEDS: Budesonide/Formoterol 80/4.5 MDI IH SCH ×2 (11:43→21:15)
[2016-08-18] MEDS: Cefepime HCl 2,000 MG in D5% in Water (Mini-Bag+) 100 ML IVPB SCH (12:15)
--- NOTE | 2016-08-18 13:57 | Internal Med Progress Note ---
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 Her creatinine is up a little today. likely from the antibiotics. She is taking fluids well. Her metformin has been held. will repeat tomorrow Qualifiers: Chronic kidney disease stage: stage 3 (moderate) Qualified Code(s): N18.3 - Chronic kidney disease, stage 3 (moderate) (4) Hypertension Current Visit: Yes Status: Acute Assessment and plan: Her hypertension has been under good control most of the time. Occasionally will be in the 150-160 systolic range. Continue her current medication.will hold adjusting medications for now since she has pneumonia and a cva to avoid hypotension Qualifiers: Hypertension type: essential hypertension Qualified Code(s): I10 - Essential (primary) hypertension (5) COPD (chronic obstructive pulmonary disease) Current Visit: Yes Status: Acute Assessment and plan: Her COPD apparently is stable. She continues to be oxygen dependent. She is getting nebulizer treatments. ct of the chest showed pneumonia. Qualifiers: COPD type: unspecified COPD Qualified Code(s): J44.9 - Chronic obstructive pulmonary disease, unspecified (6) Diabetes mellitus Current Visit: Yes Status: Acute Assessment and plan: . Metformin was held because of acute kidney injury. With her sugars elevating , her appetite is good, and she is also getting snacks brought in by family, low-dose glipizide was added. Her last glycohemoglobin at [place] was 5.6%, at our facility before admission was 6.5%. 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 On cursory examination no obvious gaze palsy. 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 She is now showing marked improvement. She denies any dizziness or double vision. She is improving with her therapies. She still needs standby assistance with dressing and with walking with her walker etc. She still needs ongoing PT and OT, but she is improved and stable enough to move on to ECF. from the cva standpoint but needs iv antibiotics for the pneumonia (9) DVT prophylaxis Current Visit: Yes Status: Inactive Assessment and plan: lovenox (10) Urinary incontinence Current Visit: Yes Status: Acute Assessment and plan: Chronic urinary incontinence at night. She is continent during the day. We will continue frequent toileting. Qualifiers: Urinary Incontinence type: urinary incontinence without sensory awareness Qualified Code(s): N39.42 - Incontinence without sensory awareness (11) Anemia Current Visit: Yes Status: Acute Assessment and plan: Her hemoglobin is stable. No obvious bleeding source. Hemodynamically stable. I do not think she needs further workup or intervention at this time.she was on hospice prior to admission Qualifiers: Anemia type: unspecified type Qualified Code(s): D64.9 - Anemia, unspecified (12) Leukocytosis Current Visit: Yes Status: Acute Assessment and plan: Her white blood cell count is in the is still elevated has come down some today. She has had no fever. 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 she is afebrile, but her wbc count increased today. will hold ecf d.c until wbc trending down and treated with the antibiotics. - Subjective Interval history: she wants to go home. denies pain, denies cp, sob, n/v, she is ambulating with her walker. had cT scan of lungs with pneumonia. she is on 3 antibiotics for this. her wbc has increased, down now. she has been afebrile. states her vision is not good - Constitutional Vitals: Temp Pulse Resp BP Pulse Ox 98.3 F 68 18 145/68 91 08/18/16 06:58 08/18/16 06:58 08/18/16 06:58 08/18/16 06:58 08/18/16 06:58 General appearance: Present: A&O X 2 (name, place, month, 1967), no acute distress, obese. Absent: answers questions appropriately - Head Head exam: Present: atraumatic, normocephalic - Eye Eye exam: Present: EOMI. Absent: nystagmus - Neck Neck exam general surgery: Present: supple, trachea midline - Respiratory Respiratory exam: Present: wheezes (left upper) - Cardiovascular Cardiovascular exam: Present: RRR, +S1, +S2 - GI/Abdominal GI/Abdominal exam: Present: normal bowel sounds, soft, no peritoneal signs. Absent: distended, guarding, tenderness - Extremities Exam Extremities exam: Present: normal capillary refill. Absent: pedal edema - Skin Skin exam: Present: dry, warm. Absent: rash Internal Medicine: Result - Labs CBC & Chem 7: 08/18/16 05:20 08/18/16 05:20 Labs: Short CBC 08/18/16 Range/Units 05:20 WBC 13.9 H (4.3-11.1) K/mcL Hgb 10.3 L (11.5-15.4) g/dL Hct 30.4 L (35.3-44.9) % Plt Count 510 H (140-400) K/mcL Neutrophils # 10.2 H (1.6-8.9) K/mcL BMP 08/18/16 05:20 Sodium 137 Potassium 4.8 H Chloride 98 Carbon Dioxide 28 BUN 45 H Creatinine 1.59 H Glucose 168 H Calcium 9.5 - VTE Documentation of Mechanical Device: Graduated compression elastic hosiery Consult Discharge Plan - Plan Referrals: Modesta Wang, FOOT AND ANKLE SURGEON [Advanced Practice Nurse] -
[2016-08-18] MEDS: *HR* LORazepam 0.5 MG TABLET PO PRN (20:15)
[2016-08-18] MEDS: Levofloxacin 750 MG/150 ML 750 MG/150 ML BAG IVPB SCH (21:14)
[2016-08-18] MEDS: Vancomycin 1,000 MG in D5% in Water 250 ML IVPB SCH (23:01)
[2016-08-19] MEDS: Cefepime HCl 2,000 MG in D5% in Water (Mini-Bag+) 100 ML IVPB SCH ×2 (00:47→11:34)
[2016-08-19] MEDS: *HR* Enoxaparin 30 MG/0.3 ML SYRINGE SQ SCH (05:38)
[2016-08-19] MEDS: Furosemide 40 MG TABLET PO SCH ×2 (09:07→17:13)
[2016-08-19] MEDS: Aspirin 81 MG TAB.CHEW PO SCH (09:07)
[2016-08-19] MEDS: Albuterol 2.5 MG/3 ML NEBULIZER IH SCH ×4 (09:07→21:24)
[2016-08-19] MEDS: *HR* GlipiZIDE 5 MG TABLET PO SCH (10:24)
[2016-08-19] MEDS: Cholecalciferol (D-3) 1,000 UNIT TABLET PO SCH (10:24)
[2016-08-19] MEDS: hydrALAZINE 25 MG TABLET PO SCH ×3 (10:24→23:44)
[2016-08-19] MEDS: amLODIPine 5 MG TABLET PO SCH (10:24)
[2016-08-19] MEDS: Venlafaxine XR (24 HR) 75 MG CAP.ER.24H PO SCH (10:24)
[2016-08-19] MEDS: Budesonide/Formoterol 80/4.5 MDI IH SCH ×2 (10:25→23:44)
[2016-08-19 10:48] LABS: Basophils # 0.1 K/mcL (0.0-0.2); Basophils % 0.7 %; Eosinophils # 0.7 K/mcL (0.0-0.6); Eosinophils % 5.2 %; Hematocrit 28.6 % (35.3-44.9); Hemoglobin 9.7 g/dL (11.5-15.4); Lymphocytes # 1.7 K/mcL (0.6-4.6); Lymphocytes % 12.1 %; Mean Corpuscular HGB Conc 33.9 g/dL (31.6-35.5); Mean Corpuscular Hemoglobin 29.2 pg (28.0-33.3); Mean Corpuscular Volume 86.1 fL (83.0-100.0); Monocytes # 1.1 K/mcL (0.0-1.3); Platelet Count 470 K/mcL (140-400); Red Blood Count 3.32 M/mcL (3.82-4.97)
[2016-08-19 11:01] LABS: Potassium 4.8 mEq/L (3.5-4.5)
--- NOTE | 2016-08-19 11:46 | Internal Med Progress Note ---
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 Her creatinine is up a little today. likely from the antibiotics. l. Her metformin has been held. will repeat tomorrow Qualifiers: Chronic kidney disease stage: stage 3 (moderate) Qualified Code(s): N18.3 - Chronic kidney disease, stage 3 (moderate) (4) Hypertension Current Visit: Yes Status: Acute Assessment and plan: Her hypertension has been under good control most of the time. Occasionally will be in the 150-160 systolic range. Continue her current medication.will hold adjusting medications for now since she has pneumonia and a cva to avoid hypotension Qualifiers: Hypertension type: essential hypertension Qualified Code(s): I10 - Essential (primary) hypertension (5) COPD (chronic obstructive pulmonary disease) Current Visit: Yes Status: Acute Assessment and plan: Her COPD apparently is stable. She continues to be oxygen dependent. She is getting nebulizer treatments. ct of the chest showed pneumonia. Qualifiers: COPD type: unspecified COPD Qualified Code(s): J44.9 - Chronic obstructive pulmonary disease, unspecified (6) Diabetes mellitus Current Visit: Yes Status: Acute Assessment and plan: . Metformin was held because of acute kidney injury. With her sugars elevating , her appetite is good, and she is also getting snacks brought in by family, low-dose glipizide was added. Her last glycohemoglobin at [place] was 5.6%, at our facility before admission was 6.5%. 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 She is continent during the day. We will continue frequent toileting. She is urine incontinent now with the mental status changes. Qualifiers: Urinary Incontinence type: urinary incontinence without sensory awareness Qualified Code(s): N39.42 - Incontinence without sensory awareness (11) Anemia Current Visit: Yes Status: Acute Assessment and plan: Her hemoglobin is gone down a little today. No obvious bleeding source. Hemodynamically stable. I do not think she needs further workup or intervention at this time.she was on hospice prior to admission Qualifiers: Anemia type: unspecified type Qualified Code(s): D64.9 - Anemia, unspecified (12) Leukocytosis Current Visit: Yes Status: Acute Assessment and plan: Her white blood cell count is in the is still elevated has come down some today. She has had no fever. 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 she is afebrile, but her wbc count increased today. will hold ecf d.c until wbc trending down and treated with the antibiotics. (15) Mental status change Current Visit: Yes Status: Acute Assessment and plan: She responded well with the first dose of flumazenil for now. She went back to sleep. She was given a second dose and was alert then. This is likely related to the 2 doses of Ativan back to back Ativan has been DC'd from her med list. She had a head CT that did not show any acute changes she will answer questions with what she is keeping oxygen saturations up her respiratory status is a normal rate. We will continue to keep a close eye on her and watch her. For any respiratory distress issues. It likely will take a while for this to wear off. Qualifiers: Altered mental status type: delirium Qualified Code(s): R41.0 - Disorientation, unspecified - Subjective Interval history: She is a little bit agitated the nurse gave her Ativan she had a before. She was supposed to have blood drawn this morning and she got agitated and will not do it they gave her ativan again and came back to draw her blood and she was not very responsive. She was given a dose of flumazenil and she opened her eyes and responded. After a few minutes it wore off. And she was itching scratching and rolling around in bed. A second dose was given she will come opened her eyes and could give her name. That second doses since worn off and she is back to not answering questions and scratching. She is breathing okay her oxygen saturations have been okay. Head CT was obtained that did not show any acute changes. Given the fact that she responded to the doses of flumazenil this is likely related to the Ativan. She is not on any other medications that are likely to cause this reaction. She has been incontinent of urine. She denies any pain when he asked many questions she screams,"WHAT?" - Constitutional Vitals: Temp Pulse Resp BP Pulse Ox 98.5 F 67 18 148/55 97 08/19/16 07:46 08/19/16 07:46 08/19/16 07:46 08/19/16 07:46 08/19/16 07:46 General appearance: Present: no acute distress, obese. Absent: answers questions appropriately (She is not answering any questions at this time all responses are what) - Head Head exam: Present: atraumatic, normocephalic - Eye Eye exam: Absent: scleral icterus (Difficult to assess subjective prior her eyes open appear to be small but reactive to light.) - Neck Neck exam general surgery: Present: trachea midline - Respiratory Respiratory exam: Present: wheezes - Cardiovascular Cardiovascular exam: Present: RRR, +S1, +S2. Absent: systolic murmur - GI/Abdominal GI/Abdominal exam: Present: normal bowel sounds, soft. Absent: rebound, tenderness, no peritoneal signs - Extremities Exam Extremities exam: Present: normal capillary refill, warm. Absent: pedal edema - Skin Skin exam: Present: dry, warm. Absent: rash (But she did have a rash this morning since resolved. Was on her right hip and she been laying on her right side) Internal Medicine: Result - Labs CBC & Chem 7: 06/11/17 10:38 08/19/16 10:38 Labs: Short CBC 08/19/16 Range/Units 10:38 WBC 13.7 H (4.3-11.1) K/mcL Hgb 9.7 L (11.5-15.4) g/dL Hct 28.6 L (35.3-44.9) % Plt Count 470 H (140-400) K/mcL Neutrophils # 10.0 H (1.6-8.9) K/mcL BMP 08/19/16 10:38 Sodium 138 Potassium 4.8 H Chloride 101 Carbon Dioxide 27 BUN 52 H Creatinine 1.76 H Glucose 137 H Calcium 9.0 - Impressions Impressions Head CT 08/19/16 08:34 IMPRESSION: 1. Motion partially limits evaluation. 2. No convincing acute intracranial abnormality. 3. Global parenchymal volume loss with chronic microvascular ischemic change. 4. Atherosclerosis. D/ / Kp Holguin MD / Kp Holguin MD Interpreting Provider: Kp Holguin MD - VTE Documentation of Mechanical Device: Graduated compression elastic hosiery Consult Discharge Plan - Plan Referrals: Modesta Wang, STEEL ROLLER [Advanced Practice Nurse] -
[2016-08-19] MEDS ORDERED: Vancomycin 1 EACH in EMPTY BAG 1 EACH IVPB SCH (13:00)
[2016-08-19 13:22] LABS: Albumin 2.7 g/dL (3.5-5.0); Albumin/Globulin Ratio 0.8 (1.1-2.2); Bilirubin,Direct 0.1 mg/dL (0.0-0.5); Bilirubin,Indirect 0.2 mg/dL (0.0-1.2); Bilirubin,Total 0.3 mg/dL (0.2-1.2); Globulin 3.5 g/dL (2.4-3.5); Total Protein 6.2 g/dL (6.0-8.3)
[2016-08-19 18:10] LABS: Thyroid Stimulating Hormone 1.631 mcIU/mL (0.350-4.840)
[2016-08-19] MEDS ORDERED: 0.9 % Sodium Chloride 1,000 ML IVC ONE (20:11)
[2016-08-19] MEDS ORDERED: Vancomycin 1,000 MG in D5% in Water 250 ML IVPB ONE (23:53)
[2016-08-20] MEDS: *HR* Enoxaparin 30 MG/0.3 ML SYRINGE SQ SCH (05:19)
[2016-08-20 05:40] LABS: Basophils # 0.1 K/mcL (0.0-0.2); Basophils % 0.8 %; Eosinophils # 0.6 K/mcL (0.0-0.6); Eosinophils % 4.8 %; Hematocrit 29.9 % (35.3-44.9); Immature Granulocytes % 0.9 % (0-4); Lymphocytes # 1.2 K/mcL (0.6-4.6); Lymphocytes % 10.2 %; Mean Corpuscular HGB Conc 33.4 g/dL (31.6-35.5); Mean Corpuscular Hemoglobin 29.1 pg (28.0-33.3); Mean Corpuscular Volume 86.9 fL (83.0-100.0); Mean Platelet Volume 9.2 fL (9.4-12.4); Monocytes # 1.1 K/mcL (0.0-1.3); Monocytes % 9.1 %; Platelet Count 469 K/mcL (140-400); Red Blood Count 3.44 M/mcL (3.82-4.97); Segmented Neutrophils % 74.2 %
[2016-08-20 05:51] LABS: Calcium 9.3 mg/dL (8.6-10.8); Potassium 4.4 mEq/L (3.5-4.5)
--- NOTE | 2016-08-20 06:58 | Internal Med Progress Note ---
Date of Encounter: 08/20/16 Time of Encounter: 06:54 - Assessment and plan (1) Mental status change Current Visit: Yes Status: Acute Assessment and plan: She had restlessness and confusion and then was sedated with Ativan which made her too sleepy. Now she is restless, not communicative. She does respond to pain, she does open her eyes temporarily, there is no deficit of muscle strength. Her CT scan was negative for acute change. There were unable to get another urine for culture, but a previous one showed no growth. Blood cultures have been negative with the pneumonia. This may be sundowning. It may be a reaction to the medication and I will hold Levaquin. We are trying not to use more medication to calm her down for fear or make things worse. She will have a sitter. Qualifiers: Altered mental status type: delirium Qualified Code(s): R41.0 - Disorientation, unspecified (2) Abnormality of gait following cerebrovascular accident Current Visit: Yes Status: Acute Assessment and plan: Underlying problems still appears to be her CVA. Right now were having to hold PT and OT until she is cognitively back to her baseline to participate. CT scan shows no recurrence of CVA (3) Healthcare-associated pneumonia Current Visit: Yes Status: Acute Assessment and plan: We are currently treating her for healthcare associated pneumonia. She has had no fever. Her white blood cell count is improving. Her lungs are clear. Her confusion and restlessness seemed to have appeared after her second dose Levaquin. She has no known allergies to antibiotics, but I may hold her Levaquin in case that is the source of the confusion. (4) Internuclear ophthalmoplegia of right eye Current Visit: Yes Status: Acute Assessment and plan: Seems to have been resolved. (5) Cognitive deficit due to recent cerebrovascular accident (CVA) Current Visit: Yes Status: Acute Assessment and plan: She now has had for the past few days mental status changes of unknown etiology. This may be related to her antibiotics which would be a new medication for her. We do not think it is from a new CVA. This is certainly a change from her post-CVA baseline. We will continue to monitor. Ativan was discontinued. Confusion however started for the Ativan was given. (6) COPD (chronic obstructive pulmonary disease) Current Visit: Yes Status: Acute Assessment and plan: Her lungs are actually clear. Her saturations are in the mid 90s with oxygen. Qualifiers: COPD type: unspecified COPD Qualified Code(s): J44.9 - Chronic obstructive pulmonary disease, unspecified (7) Chronic kidney disease (CKD) Current Visit: Yes Status: Acute Assessment and plan: Her creatinine has now improved. She had IV fluids to the night because of poor by mouth intake. May need to restart the fluids again depending on how well she does today. Qualifiers: Chronic kidney disease stage: stage 3 (moderate) Qualified Code(s): N18.3 - Chronic kidney disease, stage 3 (moderate) (8) Hypertension Current Visit: Yes Status: Acute Assessment and plan: Her blood pressure has been elevated occasionally. She has not been able take oral medications. Will monitor. If it becomes out of control we will add Catapres patch. Qualifiers: Hypertension type: essential hypertension Qualified Code(s): I10 - Essential (primary) hypertension (9) Diabetes mellitus Current Visit: Yes Status: Acute Assessment and plan: we are continuing to monitor the blood sugars. Her glipizide will be held. Qualifiers: Diabetes mellitus type: type 2 Diabetes mellitus complication status: with neurologic complications Diabetes mellitus complication detail: with other neurological complication Diabetes mellitus custodial insulin use: without group home counselor use Qualified Code(s): E11.49 - Type 2 diabetes mellitus with other diabetic neurological complication (10) Urinary incontinence Current Visit: Yes Status: Acute Assessment and plan: Urinary incontinence continues. Qualifiers: Urinary Incontinence type: urinary incontinence without sensory awareness Qualified Code(s): N39.42 - Incontinence without sensory awareness (11) Anemia Current Visit: Yes Status: Acute Assessment and plan: Hemoglobin is stable. No active bleeding. Qualifiers: Anemia type: unspecified type Qualified Code(s): D64.9 - Anemia, unspecified (12) Leukocytosis Current Visit: Yes Status: Acute Assessment and plan: Leukocytosis slowly improving with the antibiotic treatment of her presumed healthcare associated pneumonia. Qualifiers: Leukocytosis type: unspecified Qualified Code(s): D72.829 - Elevated white blood cell count, unspecified - Subjective Interval history: This weekend she developed restlessness and was given Ativan, and then she was sedated. Reversal awakened her temporarily. The night the nurses report that she has been restless, moving in bed a lot, she kept her eyes closed. This morning she was restless, scratching at her skin, she picked off a scab from her left arm and had some bleeding. She will temporarily open her eyes but not responsive verbally otherwise. She regurgitated into her mouth and spit out green bilious appearing liquid, about 2 tablespoons or so. She is now restless and trying to sit up at the edge of the bed. She is nonverbal. She had been pulling at the leads of her monitoring and evaluation advisor. The nurses reports she has been in sinus rhythm without tachycardia or bradycardia. Her saturations have been ranging in the mid 90s. - Constitutional Vitals: Temp Pulse Resp BP Pulse Ox 97.3 F L 75 20 173/79 94 08/20/16 06:09 08/20/16 06:09 08/20/16 06:09 08/20/16 06:09 08/20/16 06:09 General appearance: Absent: answers questions appropriately (She is not answering any questions at this time all responses are what) Exam: Patient is restless, not communicating verbally. She opens her eyes temporarily. She vomited a small amount is now trying to sit at the edge of the bed. She responds to pain when he pulled off the tabs for the monitor. She will open her eyes temporarily. - Eye Additional comments: Gaze appears to be conjugate. No obvious nystagmus. - Respiratory Additional comments: Lungs show slightly diminished breath sounds but clear. No respiratory distress. Saturations are in the mid 90s with oxygen - Cardiovascular Cardiovascular exam: Present: RRR, +S1, +S2, systolic murmur (2/6 systolic murmur. No tachycardia or bradycardia reported.) - GI/Abdominal GI/Abdominal exam: Present: soft, no peritoneal signs. Absent: mass, tenderness Additional comments: After the examination she did spit up a small amount of bilious green fluid, about 2 tablespoons or so. It rolled out of her mouth. Was not projectile. - Extremities Exam Extremities exam: Absent: calf tenderness, mottling, pedal edema, tenderness - Neurological Exam Additional comments: She is able to move all of her extremities. Her strength appears be intact. However she is not verbal. She does respond to pain. She will open her eyes temporarily. She is restless and moving around in bed. Internal Medicine: Result - Labs CBC & Chem 7: 08/20/16 05:00 08/20/16 05:00 Labs: Short CBC 08/19/16 08/20/16 Range/Units 10:38 05:00 WBC 13.7 H 12.1 H (4.3-11.1) K/mcL Hgb 9.7 L 10.0 L (11.5-15.4) g/dL Hct 28.6 L 29.9 L (35.3-44.9) % Plt Count 470 H 469 H (140-400) K/mcL Neutrophils # 10.0 H 9.0 H (1.6-8.9) K/mcL BMP 08/19/16 08/20/16 10:38 05:00 Sodium 138 141 Potassium 4.8 H 4.4 Chloride 101 105 Carbon Dioxide 27 26 BUN 52 H 39 H D Creatinine 1.76 H 1.54 H Glucose 137 H 155 H Calcium 9.0 9.3 Liver Function 08/19/16 Range/Units 10:38 Total Bilirubin 0.3 (0.2-1.2) mg/dL Direct Bilirubin 0.1 (0.0-0.5) mg/dL AST 14 (5-34) Units/L ALT 9 (0-55) Units/L Alkaline Phosphatase 92 (38-126) Units/L Albumin 2.7 L (3.5-5.0) g/dL White blood cell count is improved to 12,000. Hemoglobin is stable. Lites otherwise are unremarkable. Her creatinine is improved down to 1.54. Liver functions are normal. - Impressions Impressions Head CT 08/19/16 08:34 IMPRESSION: 1. Motion partially limits evaluation. 2. No convincing acute intracranial abnormality. 3. Global parenchymal volume loss with chronic microvascular ischemic change. 4. Atherosclerosis. D/ / Kp Holguin MD / Kp Holguin MD Interpreting Provider: Kp Holguin MD - VTE Documentation of Mechanical Device: Graduated compression elastic hosiery Consult Discharge Plan - Plan Referrals: Modesta Wang, [employer] [Advanced Practice Nurse] -
[2016-08-20] MEDS: Albuterol 2.5 MG/3 ML NEBULIZER IH SCH ×4 (09:21→21:58)
[2016-08-20] MEDS: Venlafaxine XR (24 HR) 75 MG CAP.ER.24H PO SCH (11:26)
[2016-08-20] MEDS: *HR* GlipiZIDE 5 MG TABLET PO SCH (11:26)
[2016-08-20] MEDS: Furosemide 40 MG TABLET PO SCH ×2 (11:26→17:22)
[2016-08-20] MEDS: Aspirin 81 MG TAB.CHEW PO SCH (11:26)
[2016-08-20] MEDS: Cholecalciferol (D-3) 1,000 UNIT TABLET PO SCH (11:27)
[2016-08-20] MEDS: amLODIPine 5 MG TABLET PO SCH (11:27)
[2016-08-20] MEDS: hydrALAZINE 25 MG TABLET PO SCH ×3 (11:27→21:58)
[2016-08-20] MEDS: Budesonide/Formoterol 80/4.5 MDI IH SCH ×2 (11:28→21:58)
[2016-08-20] MEDS: Cefepime HCl 2,000 MG in D5% in Water (Mini-Bag+) 100 ML IVPB SCH (11:56)
[2016-08-20] MEDS ORDERED: Aminoglycoside Consult 1 EACH MC ONE (12:00)
[2016-08-20] MEDS: Albuterol 2.5 MG/3 ML NEBULIZER IH PRN (15:25)
--- NOTE | 2016-08-20 18:56 | Event Note ---
Date of Encounter: 08/21/16 Time of Encounter: 18:56 I rechecked this patient this evening. She has been restless today. She has not really been verbal. She remains incontinent. Her blood pressure has been edging upward as she is taking no by mouth meds. She is not having any focal deficit regarding strength and any extremity. She has a sitter to keep her in bed. If she does not call down this evening I am planning to give her a dose of Haldol IM to see if we get her to sleep tonight. Hopefully in the morning when she awakens she will be more to herself. I still suspect this is sundowning or possibly a side effect from her IV antibiotics. We have already trimmed down her antibiotics by stopping the Levaquin. We will reassess in the morning. I will speak with the daughter via phone tonight. They are to call me at 9 PM with an update. We will consider IV fluids through the night.
[2016-08-20] MEDS ORDERED: Haloperidol Lactate 5 MG/ML VIAL IM ONE (21:57)
[2016-08-20] MEDS ORDERED: 0.9 % Sodium Chloride 1,000 ML IVC SCH (22:45)
[2016-08-20] MEDS ORDERED: 0.9 % Sodium Chloride 1,000 ML IV SCH (23:00)
[2016-08-21] MEDS ORDERED: Vancomycin 750 MG in D5% in Water 250 ML IVPB SCH (04:00)
[2016-08-21] MEDS: *HR* Enoxaparin 30 MG/0.3 ML SYRINGE SQ SCH (04:11)
[2016-08-21 05:41] LABS: Basophils # 0.1 K/mcL (0.0-0.2); Basophils % 0.7 %; Eosinophils # 0.5 K/mcL (0.0-0.6); Eosinophils % 4.4 %; Hematocrit 30.7 % (35.3-44.9); Hemoglobin 10.1 g/dL (11.5-15.4); Immature Granulocytes % 0.6 % (0-4); Lymphocytes # 1.7 K/mcL (0.6-4.6); Lymphocytes % 15.2 %; Mean Corpuscular HGB Conc 32.9 g/dL (31.6-35.5); Mean Corpuscular Volume 88.2 fL (83.0-100.0); Mean Platelet Volume 9.1 fL (9.4-12.4); Monocytes # 1.1 K/mcL (0.0-1.3); Monocytes % 10.4 %; Neutrophils # 7.5 K/mcL (1.6-8.9); Platelet Count 457 K/mcL (140-400); Red Blood Count 3.48 M/mcL (3.82-4.97); Red Cell Distribution Width 13.9 % (11.5-14.5); Segmented Neutrophils % 68.7 %
[2016-08-21 05:49] LABS: Calcium 9.3 mg/dL (8.6-10.8); Potassium 4.2 mEq/L (3.5-4.5)
--- NOTE | 2016-08-21 06:23 | Internal Med Progress Note ---
Date of Encounter: 08/21/16 Time of Encounter: 06:19 - Assessment and plan (1) Mental status change Current Visit: Yes Status: Acute Assessment and plan: She is still not responding verbally to us. She had agitation and restlessness last night. We gave her Haldol 2 mg IM and this allowed her to sleep several hours. This morning she started to a rales, coming out of sleep she is a bit restless. Not communicating with me. Levaquin has been held for a couple of days. I will plan to discontinue her IV antibiotics after 5 days of therapy. Her mental status changes started after initiating the antibiotics. Could be a side effect from the antibiotics. This could be sundowning just from being in the hospital and having had a recent stroke. No obvious signs of a CVA. At this point I think continued patience, supportive care, etc. Prior to her CVA she was a hospice patient and she is a DNR CCA with no intubation, defibrillation or CPR. Qualifiers: Altered mental status type: delirium Qualified Code(s): R41.0 - Disorientation, unspecified (2) Abnormality of gait following cerebrovascular accident Current Visit: Yes Status: Acute Assessment and plan: Status post CVA. Not having PT or OT because of her mental status changes and hypersomnolence. (3) Healthcare-associated pneumonia Current Visit: Yes Status: Acute Assessment and plan: She will be finishing 5 days of treatment with intravenous antibiotics. Her lungs are clear. No fever. White blood cell count is normal. Given that her confusion started after initiating the antibiotics, we will stop them after 5 days of treatment. (4) Internuclear ophthalmoplegia of right eye Current Visit: Yes Status: Acute Assessment and plan: No obvious diplopia/nystagmus/disconjugate gaze. No signs of dizziness/ vertiginous symptoms. (5) Cognitive deficit due to recent cerebrovascular accident (CVA) Current Visit: Yes Status: Acute Assessment and plan: Cannot evaluate currently because of her unresponsiveness, sleeping, agitation. (6) COPD (chronic obstructive pulmonary disease) Current Visit: Yes Status: Acute Assessment and plan: Her lungs have been clear. No wheezing. Not requiring respiratory treatments. Qualifiers: COPD type: unspecified COPD Qualified Code(s): J44.9 - Chronic obstructive pulmonary disease, unspecified (7) Chronic kidney disease (CKD) Current Visit: Yes Status: Acute Assessment and plan: Renal function has improved. We will plan IV fluids again tonight. Qualifiers: Chronic kidney disease stage: stage 3 (moderate) Qualified Code(s): N18.3 - Chronic kidney disease, stage 3 (moderate) (8) Hypertension Current Visit: Yes Status: Acute Assessment and plan: Blood pressures have been elevated as she cannot take by mouth meds. I do not think work to the point where we need to start Catapres. Qualifiers: Hypertension type: essential hypertension Qualified Code(s): I10 - Essential (primary) hypertension (9) Diabetes mellitus Current Visit: Yes Status: Acute Assessment and plan: Her sugars are ranging in the mid 100s to 190s. This is without medication. She is taking nothing by mouth. Qualifiers: Diabetes mellitus type: type 2 Diabetes mellitus complication status: with neurologic complications Diabetes mellitus complication detail: with other neurological complication Diabetes mellitus buttermaker insulin use: without buttermaker use Qualified Code(s): E11.49 - Type 2 diabetes mellitus with other diabetic neurological complication (10) Urinary incontinence Current Visit: Yes Status: Acute Qualifiers: Urinary Incontinence type: urinary incontinence without sensory awareness Qualified Code(s): N39.42 - Incontinence without sensory awareness (11) Anemia Current Visit: Yes Status: Acute Assessment and plan: Hemoglobin is stable. No acute signs of bleeding. Qualifiers: Anemia type: unspecified type Qualified Code(s): D64.9 - Anemia, unspecified (12) Leukocytosis Current Visit: Yes Status: Acute Assessment and plan: Resolving with the IV antibiotics for treatment of pneumonia Qualifiers: Leukocytosis type: unspecified Qualified Code(s): D72.829 - Elevated white blood cell count, unspecified - Subjective Interval history: Patient is nonverbal. She did open her eyes when I called her name. The nurses report that she slept well after the Haldol given last evening. She started to become a bit restless just before 6 AM. Her blood pressure has been still elevated in the 180/60 range. Overall she is much more calm so far today. Her IV fluids are finishing this morning. - Constitutional Vitals: Temp Pulse Resp BP Pulse Ox 98.4 F 71 18 180/63 92 08/21/16 04:19 08/21/16 04:19 08/21/16 04:08/21/16 04:17 04:19 General appearance: Absent: answers questions appropriately (She is not answering any questions at this time all responses are what) Exam: Patient is nonverbal. She opened her eyes when I called her name. She is rubbing her eyes. She slightly restless as if she is waking up. - Respiratory Additional comments: Lung quintana are clear. No rales or rhonchi or wheeze. There is no coughing or congestion noted compared to last week. - Cardiovascular Cardiovascular exam: Present: RRR, +S1, +S2, systolic murmur (2/6 systolic murmur) - GI/Abdominal GI/Abdominal exam: Present: soft. Absent: tenderness - Extremities Exam Extremities exam: Absent: calf tenderness, mottling, pedal edema - Neurological Exam Additional comments: She has slept soundly. She starting to arouse. She opens her eyes when I call her name. Other than that she does not respond to commands or verbalize. She is moving all of her extremities. No localizing weakness noted. Internal Medicine: Result - Labs CBC & Chem 7: 08/21/16 05:20 08/21/16 05:20 Labs: Short CBC 08/21/16 Range/Units 05:20 WBC 10.9 (4.3-11.1) K/mcL Hgb 10.1 L (11.5-15.4) g/dL Hct 30.7 L (35.3-44.9) % Plt Count 457 H (140-400) K/mcL Neutrophils # 7.5 (1.6-8.9) K/mcL BMP White blood cell count is now normal. Electrolytes unremarkable. Renal function improved. Glucose readings are reasonable without intervention 08/21/16 05:20 Sodium 143 Potassium 4.2 Chloride 109 Carbon Dioxide 25 BUN 29 H D Creatinine 1.39 H Glucose 190 H Calcium 9.3 - VTE Documentation of Mechanical Device: Graduated compression elastic hosiery Consult Discharge Plan - Plan Referrals: Modesta Wang, SHOPPER [Advanced Practice Nurse] -
[2016-08-21] MEDS: *HR* GlipiZIDE 5 MG TABLET PO SCH (10:05)
[2016-08-21] MEDS: Furosemide 40 MG TABLET PO SCH ×2 (10:05→17:36)
[2016-08-21] MEDS: Aspirin 81 MG TAB.CHEW PO SCH (10:05)
[2016-08-21] MEDS: hydrALAZINE 25 MG TABLET PO SCH ×3 (10:05→21:08)
[2016-08-21] MEDS: Venlafaxine XR (24 HR) 75 MG CAP.ER.24H PO SCH (10:05)
[2016-08-21] MEDS: Albuterol 2.5 MG/3 ML NEBULIZER IH SCH ×4 (10:45→21:09)
[2016-08-21] MEDS: Cefepime HCl 2,000 MG in D5% in Water (Mini-Bag+) 100 ML IVPB SCH (13:48)
[2016-08-21] MEDS: Cholecalciferol (D-3) 1,000 UNIT TABLET PO SCH (13:58)
[2016-08-21] MEDS: Budesonide/Formoterol 80/4.5 MDI IH SCH ×2 (13:58→21:09)
[2016-08-21] MEDS: amLODIPine 5 MG TABLET PO SCH (13:58)
--- NOTE | 2016-08-21 18:07 | Event Note ---
Date of Encounter: 08/21/16 Time of Encounter: 18:00 I am rechecking this patient this evening. For the day nurse the patient did open her eyes and say "hi". She has been restless, sometimes on all fours, knees and hands, trying to crawl out of bed. Nurses report she has been opening her eyes some and minimal visual alertness. When I spoke with her she opened her eyes, looked at me, said lee. When I asked how she was feeling, she said "not bad right now". Then afterwards she did not say anything more but she did watch me an open her eyes. When I went to examine her she rolled onto her back so I can check her heart. She is completed 5 days of IV antibiotics. White blood count is normal. She has had no fever. Her pulmonary findings have improved. The mental status changes started after the IV and advice were started. Therefore I think it is reasonable after 5 days to discontinue and see what happens. If she is restless again tonight I will again give her Haldol 2 mg IM. We will plan IV fluids to the night to avoid dehydration.
[2016-08-21] MEDS ORDERED: Haloperidol Lactate 5 MG/ML VIAL IM ONE (21:01)
[2016-08-21] MEDS ORDERED: CloNIDine Patch 0.1 MG PATCH (WEEKLY) TD ONE (21:03)
[2016-08-21] MEDS: 0.9 % Sodium Chloride 1,000 ML IVC SCH (21:59)
[2016-08-22] MEDS: 0.9 % Sodium Chloride 1,000 ML IVC SCH (05:23)
[2016-08-22] MEDS: *HR* Enoxaparin 30 MG/0.3 ML SYRINGE SQ SCH (05:24)
--- NOTE | 2016-08-22 09:22 | Internal Med Progress Note ---
Date of Encounter: 08/22/16 Time of Encounter: 09:14 - Assessment and plan (1) Mental status change Current Visit: Yes Status: Acute Assessment and plan: Her acute delirium confusion, agitation and somnolence now seems to be resolved. Today she is awake, starting back appropriate. She is nearly back to her baseline regarding orientation. We will see how she does with reinitiating therapy again. We will use Haldol again at night if needed. It should be safe to resume her diet. We will resume her oral meds. Qualifiers: Altered mental status type: delirium Qualified Code(s): R41.0 - Disorientation, unspecified (2) Abnormality of gait following cerebrovascular accident Current Visit: Yes Status: Acute Assessment and plan: We will try to reinitiate therapies today. (3) Healthcare-associated pneumonia Current Visit: Yes Status: Acute Assessment and plan: Clinically her lungs are clear, she has no fever, her white blood cell count normalized. She finished 5 days of antibiotics. (4) Internuclear ophthalmoplegia of right eye Current Visit: Yes Status: Acute Assessment and plan: no obvious diplopia. No symptoms of dizziness/vertigo (5) Cognitive deficit due to recent cerebrovascular accident (CVA) Current Visit: Yes Status: Acute Assessment and plan: Right now she is not being very talkative, but certainly much improved in the past few days. She had cognitive decline from her CVA. I will not sure if she is back to that level yet or not. We will see how she does during the day and with therapies (6) COPD (chronic obstructive pulmonary disease) Current Visit: Yes Status: Acute Assessment and plan: Her pulmonary signs and symptoms are improved having been treated with the antibiotics. Her lungs are clear right now. Saturations are good with oxygen. No respiratory distress, she does have a loose cough. Qualifiers: COPD type: unspecified COPD Qualified Code(s): J44.9 - Chronic obstructive pulmonary disease, unspecified (7) Chronic kidney disease (CKD) Current Visit: Yes Status: Acute Assessment and plan: Renal function had improved with IV fluids. I did not recheck today. Qualifiers: Chronic kidney disease stage: stage 3 (moderate) Qualified Code(s): N18.3 - Chronic kidney disease, stage 3 (moderate) (8) Hypertension Current Visit: Yes Status: Acute Assessment and plan: Her blood pressure spike last night to over 200. Catapres patch was initiated because she was not able to take oral medications safely. Now that she is awake , has a good gag reflex, we will restart her oral medications and follow. Qualifiers: Hypertension type: essential hypertension Qualified Code(s): I10 - Essential (primary) hypertension (9) Diabetes mellitus Current Visit: Yes Status: Acute Assessment and plan: Her sugars have been in the mid 100s. She has been nothing by mouth because of her delirium. We will start foods today and restart her glipizide. Qualifiers: Diabetes mellitus type: type 2 Diabetes mellitus complication status: with neurologic complications Diabetes mellitus complication detail: with other neurological complication Diabetes mellitus care home insulin use: without exterminator helper use Qualified Code(s): E11.49 - Type 2 diabetes mellitus with other diabetic neurological complication (10) Urinary incontinence Current Visit: Yes Status: Acute Qualifiers: Urinary Incontinence type: urinary incontinence without sensory awareness Qualified Code(s): N39.42 - Incontinence without sensory awareness (11) Anemia Current Visit: Yes Status: Acute Qualifiers: Anemia type: unspecified type Qualified Code(s): D64.9 - Anemia, unspecified (12) Leukocytosis Current Visit: Yes Status: Acute Assessment and plan: Leukocytosis resolved with treating her occult pneumonia, likely healthcare associated pneumonia. Qualifiers: Leukocytosis type: unspecified Qualified Code(s): D72.829 - Elevated white blood cell count, unspecified - Subjective Interval history: Patient is awake this morning. She knows where she is. She knew her son and daughter's names. She knew her address. She carried on a brief conversation. She denied any chest pain, trouble breathing, abdominal pain. She thought it was September, she cannot tell me the year. She has been taking ice chips and she is taking sips of water without choking or gagging. She would like to have some Jell-O. - Constitutional Vitals: Temp Pulse Resp BP Pulse Ox 98.2 F 78 24 213/81 95 08/22/16 08:00 08/22/16 08:00 08/22/16 08:00 08/22/16 08:00 08/22/16 08:00 General appearance: Present: no acute distress. Absent: answers questions appropriately (See history as above.) - Eye Eye exam: Present: EOMI. Absent: nystagmus Additional comments: No diplopia symptoms or vertiginous symptoms - ENT Additional comments: Mucous membranes are moist and she has a gag reflex - Respiratory Additional comments: She has a loose cough, but her lungs are clear. No respiratory distress. Saturations are good with wearing her oxygen - Cardiovascular Cardiovascular exam: Present: RRR, +S1, +S2, systolic murmur (2/6 systolic murmur) - GI/Abdominal GI/Abdominal exam: Present: soft, no peritoneal signs. Absent: tenderness - Extremities Exam Extremities exam: Absent: calf tenderness, tenderness - Neurological Exam Additional comments: Patient knew where she was, her address, son and daughter's names. She thought it was September instead of August. She did not know my name. She is however wide- eyed, sitting up, she was reaching out to eat ice chips and check her pitcher of water as I left. She sat up when asked so I could examine her lungs. She is carrying on small social conversation. Marked improvement Internal Medicine: Result - Labs CBC & Chem 7: 08/21/16 05:20 08/21/16 05:20 Labs: No new lab work ordered for today. Sugars are staying under 200 without medication. - VTE Documentation of Mechanical Device: Graduated compression elastic hosiery Consult Discharge Plan - Plan Referrals: Modesta Wang, [employer] [Advanced Practice Nurse] -
[2016-08-22] MEDS: Cholecalciferol (D-3) 1,000 UNIT TABLET PO SCH (10:18)
[2016-08-22] MEDS: Venlafaxine XR (24 HR) 75 MG CAP.ER.24H PO SCH (10:18)
[2016-08-22] MEDS: Aspirin 81 MG TAB.CHEW PO SCH (10:18)
[2016-08-22] MEDS: hydrALAZINE 25 MG TABLET PO SCH ×3 (10:18→20:50)
[2016-08-22] MEDS: amLODIPine 5 MG TABLET PO SCH (10:18)
[2016-08-22] MEDS: Albuterol 2.5 MG/3 ML NEBULIZER IH SCH ×4 (10:25→20:50)
[2016-08-22] MEDS: Furosemide 40 MG TABLET PO SCH ×2 (10:26→18:05)
[2016-08-22] MEDS: Budesonide/Formoterol 80/4.5 MDI IH SCH ×2 (10:46→20:50)
--- NOTE | 2016-08-22 12:47 | Physical Med Progress Note ---
Date of Encounter: 08/23/16 Time of Encounter: 12:42 Assessment and Plan (1) CVA (cerebral vascular accident) Current Visit: Yes Status: Acute Qualifiers: CVA mechanism: unspecified Qualified Code(s): I63.9 - Cerebral infarction, unspecified Physical Medicine-PN: Subj Interval history: PMR PCC Note Patient had episode of psychosis last week. It was felt that her psychosis was due to the initiation of antibiotics. She has had cognitive improvement with the cessation of her antibiotics. She was able to participate with therapy and was able to perform ADLs today. She is modA for lower body dressing. Cecil for transfers. Patient ambulated 5 feet with a walker with CGA. Plan for discharge to [facility] when stable. - Constitutional Vitals: Vital Signs Temp Pulse Resp BP Pulse Ox 08/22/16 08:00 98.2 F 78 24 213/81 95 08/22/16 04:51 98.3 F 78 18 196/65 93 08/22/16 00:53 80 181/67 94 08/21/16 20:36 98.2 F 86 24 212/68 96 08/21/16 16:30 98.0 F 20 180/78 Intake and Output 08/21/16 08/22/16 08/22/16 23:59 07:59 15:59 Intake Total 1000 / 1000 Balance 1000 / 1000 Intake: IV Fluids 1000 / 1000 0.9 % Sodium Chloride 1, 1000 / 1000 000 ML @ 150 mls/hr IVC . [id number] GIOVANNY Rx#:[id number] Other: # Voids 1 1 # Urine Diapers 1 1 Blood Glucose* 136 127 Physical Medicine-PN: Obj Data - Labs CBC & Chem 7: 08/21/16 05:20 08/21/16 05:20 Labs: Laboratory Results - last 24 hr 08/21/16 08/21/16 08/21/16 07:41 16:37 20:14 POC Glucose 144 H 137 H 136 H - VTE Documentation of Mechanical Device: Graduated compression elastic hosiery Consult Discharge Plan - Plan Referrals: Modesta Wang, HOUSEKEEPER/LAUNDRY ASSISTANT [Advanced Practice Nurse] -
[2016-08-22] MEDS: *HR* GlipiZIDE 5 MG TABLET PO SCH (13:54)
[2016-08-23] MEDS: *HR* Enoxaparin 30 MG/0.3 ML SYRINGE SQ SCH (05:58)
[2016-08-23] MEDS: hydrALAZINE 25 MG TABLET PO SCH ×3 (09:52→21:33)
[2016-08-23] MEDS: Cholecalciferol (D-3) 1,000 UNIT TABLET PO SCH (09:53)
[2016-08-23] MEDS: amLODIPine 5 MG TABLET PO SCH (09:53)
[2016-08-23] MEDS: *HR* GlipiZIDE 5 MG TABLET PO SCH (09:53)
[2016-08-23] MEDS: Venlafaxine XR (24 HR) 75 MG CAP.ER.24H PO SCH (09:54)
[2016-08-23] MEDS: Furosemide 40 MG TABLET PO SCH ×2 (09:54→16:36)
[2016-08-23] MEDS: Aspirin 81 MG TAB.CHEW PO SCH (09:54)
[2016-08-23] MEDS: Albuterol 2.5 MG/3 ML NEBULIZER IH SCH ×4 (09:54→21:32)
[2016-08-23] MEDS: Budesonide/Formoterol 80/4.5 MDI IH SCH ×2 (09:58→21:32)
--- NOTE | 2016-08-23 13:05 | Internal Med Progress Note ---
Date of Encounter: 08/23/16 Time of Encounter: 13:03 - Assessment and plan (1) Acute delirium Current Visit: Yes Status: Acute Assessment and plan: See above. She is clearing considerably now. I am not sure if it was related to , the IV antibiotics, the pneumonia, or other. She is much improved and starting to get back toward her post-CVA normal of the week ago. (2) Mental status change Current Visit: Yes Status: Acute Assessment and plan: She is markedly improved from Saturday, but not back to her post-CVA baseline of a week ago. She is participating with therapy. She is starting to take foods appropriately. She should be a good candidate for [facility] for ongoing therapies and supportive care when approved by the insurance company. Qualifiers: Altered mental status type: delirium Qualified Code(s): R41.0 - Disorientation, unspecified (3) Abnormality of gait following cerebrovascular accident Current Visit: Yes Status: Acute Assessment and plan: Has been resuming PT and OT since her delirium has cleared. (4) Healthcare-associated pneumonia Current Visit: Yes Status: Acute Assessment and plan: She was treated for at least 5 days with antibiotics. She is afebrile. Her white blood cell count normalized. Lungs are clear. (5) Internuclear ophthalmoplegia of right eye Current Visit: Yes Status: Acute Assessment and plan: No nystagmus, diplopia or visual problems reported. 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 She is markedly improved though. We will continue with her therapies (7) COPD (chronic obstructive pulmonary disease) Current Visit: Yes Status: Acute Assessment and plan: Her lungs are clear. No respiratory distress. No cough noted for me. Qualifiers: COPD type: unspecified COPD Qualified Code(s): J44.9 - Chronic obstructive pulmonary disease, unspecified (8) Chronic kidney disease (CKD) Current Visit: Yes Status: Acute Assessment and plan: Her creatinine has improved. I have not rechecked recently. She is taking by mouth adequately. Qualifiers: Chronic kidney disease stage: stage 3 (moderate) Qualified Code(s): N18.3 - Chronic kidney disease, stage 3 (moderate) (9) Hypertension Current Visit: Yes Status: Acute Assessment and plan: Blood pressure had been elevated up to 200 systolic when she was not able to take her by mouth meds. Catapres patch was started yesterday. Her blood pressures are now normalized with resuming her oral medications. The patch was discontinued last night. Qualifiers: Hypertension type: essential hypertension Qualified Code(s): I10 - Essential (primary) hypertension (10) Diabetes mellitus Current Visit: Yes Status: Acute Assessment and plan: Her sugars are under reasonable control. Qualifiers: Diabetes mellitus type: type 2 Diabetes mellitus complication status: with neurologic complications Diabetes mellitus complication detail: with other neurological complication Diabetes mellitus exterminator helper termite insulin use: without residential use Qualified Code(s): E11.49 - Type 2 diabetes mellitus with other diabetic neurological complication (11) Urinary incontinence Current Visit: Yes Status: Acute Assessment and plan: Continues chronic urinary incontinence particularly at nighttime Qualifiers: Urinary Incontinence type: urinary incontinence without sensory awareness Qualified Code(s): N39.42 - Incontinence without sensory awareness (12) Anemia Current Visit: Yes Status: Acute Assessment and plan: Hemoglobin has improved and stabilized. No obvious active bleeding. Qualifiers: Anemia type: unspecified type Qualified Code(s): D64.9 - Anemia, unspecified (13) Leukocytosis Current Visit: Yes Status: Acute Assessment and plan: Leukocytosis resolved after treating for occult pneumonia. Qualifiers: Leukocytosis type: unspecified Qualified Code(s): D72.829 - Elevated white blood cell count, unspecified (14) Skin tear of left upper extremity Current Visit: Yes Status: Acute Assessment and plan: Late this morning she sustained a skin tear and left elbow from a controlled fall to the floor. Sterile dressing is applied. There is some bleeding noted. Will reassess later. - Subjective Interval history: The staff reports the patient is getting closer back to her post-CVA baseline of about 1 week ago. She is talkative. She is now starting to eat. She is post his pain with physical therapy. She still has some times when she is confused or argumentative, she was upset because her bed was locked. She denies any chest pain, palpitation, dyspnea or GI symptoms. The nurses report that her blood pressure is now normalizing, vitals are stable and she is no longer needing a sitter - Constitutional Vitals: Temp Pulse Resp BP Pulse Ox 98 F 55 16 139/55 96 08/23/16 11:45 08/23/16 11:45 08/23/16 11:45 08/23/16 11:45 08/23/16 11:45 General appearance: Present: A&O X 2, no acute distress. Absent: answers questions appropriately (See history as above.) - Respiratory Respiratory exam: Present: CTAB. Absent: respiratory distress, rhonchi, wheezes - Cardiovascular Cardiovascular exam: Present: RRR, +S2, systolic murmur (2/6 systolic murmur) - GI/Abdominal GI/Abdominal exam: Present: soft. Absent: tenderness - Extremities Exam Extremities exam: Absent: calf tenderness, pedal edema - Neurological Exam Neurological exam: Present: CN II-XII intact (No nystagmus or diplopia noted. She is able to move all extremities appropriately well for her age. She has been a bit disagreeable and argumentative, but she is having social conversation , looking forward to doing therapy this afternoon and answering some factual information correctly. She is not quite back to where she was one week ago.) Internal Medicine: Result - Labs CBC & Chem 7: 08/21/16 05:20 08/21/16 05:20 - VTE Documentation of Mechanical Device: Graduated compression elastic hosiery Consult Discharge Plan - Plan Referrals: Modesta Wang, SECURITY CONTROL ASSESSOR [Advanced Practice Nurse] -
[2016-08-24] MEDS: *HR* Enoxaparin 30 MG/0.3 ML SYRINGE SQ SCH (05:46)
--- NOTE | 2016-08-24 06:59 | Internal Med Progress Note ---
Date of Encounter: 08/24/16 Time of Encounter: 06:54 - Assessment and plan (1) Acute delirium Current Visit: Yes Status: Resolved Assessment and plan: Her acute delirium of a few days is now resolved. Her cognitive function is still not quite back to her post-CVA baseline from last week. She still gets aggravated and sometimes needs redirection. She is cooperative, eating well, socializing. (2) Abnormality of gait following cerebrovascular accident Current Visit: Yes Status: Acute Assessment and plan: Continues with PT and OT. She will need ongoing therapies at [facility]. (3) Healthcare-associated pneumonia Current Visit: Yes Status: Resolved Assessment and plan: She has finished her IV antibiotic treatment. She has had no fever. Her pulmonary status is improved. 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 She is still not back to baseline prior to the treatment for pneumonia. She is improving. She gets frustrated and fixated on things and needs redirection at times. However she is again markedly improved from the delirium that started about a week ago. (6) COPD (chronic obstructive pulmonary disease) Current Visit: Yes Status: Acute Assessment and plan: Primary status is stable. Good saturations with nasal cannula. Qualifiers: COPD type: unspecified COPD Qualified Code(s): J44.9 - Chronic obstructive pulmonary disease, unspecified (7) Chronic kidney disease (CKD) Current Visit: Yes Status: Chronic Assessment and plan: Chronic kidney disease with recent kidney injury with her CVA, now improved. Qualifiers: Chronic kidney disease stage: stage 3 (moderate) Qualified Code(s): N18.3 - Chronic kidney disease, stage 3 (moderate) (8) Hypertension Current Visit: Yes Status: Acute Assessment and plan: Intermittently her blood pressure will be in the 160s or 170 systolic. Other times it is 130s systolic. I am inclined to follow the blood pressure longer before adding more medication and trying to avoid orthostatic hypotension. Qualifiers: Hypertension type: essential hypertension Qualified Code(s): I10 - Essential (primary) hypertension (9) Diabetes mellitus Current Visit: Yes Status: Chronic Assessment and plan: Sugars are under reasonable control. Last glycohemoglobin was 5.6% at [facility] Qualifiers: Diabetes mellitus type: type 2 Diabetes mellitus complication status: with neurologic complications Diabetes mellitus complication detail: with other neurological complication Diabetes mellitus terminal operations supervisor insulin use: without halfway use Qualified Code(s): E11.49 - Type 2 diabetes mellitus with other diabetic neurological complication (10) Urinary incontinence Current Visit: Yes Status: Acute Assessment and plan: Continues with nocturnal urinary incontinence but this is chronic. Qualifiers: Urinary Incontinence type: urinary incontinence without sensory awareness Qualified Code(s): N39.42 - Incontinence without sensory awareness (11) Anemia Current Visit: Yes Status: Acute Qualifiers: Anemia type: unspecified type Qualified Code(s): D64.9 - Anemia, unspecified (12) Leukocytosis Current Visit: Yes Status: Resolved Qualifiers: Leukocytosis type: unspecified Qualified Code(s): D72.829 - Elevated white blood cell count, unspecified - Subjective Interval history: The patient is wide awake this morning and talkative. She said she slept well. She denies any cardiac symptoms, pulmonary symptoms, GI or problems. (She continues to be incontinent at night). She remembers that she is to go to [facility], and Dr. Ludwig is going to be her doctor there. She remembers seeing Dr. Ludwig for 20 years as her family doctor. She can remember Dr. Smith visited her at a hospice visit. She can never remember my name. She recalls that she had a stroke, she does not recall that she went to [facility]. She thinks she came here yesterday. She can recall that she did 40 minutes and then 20 minutes on one of the exercise equipment and rehabilitation yesterday. - Constitutional Vitals: Temp Pulse Resp BP Pulse Ox 98.5 F 66 16 168/61 93 08/24/16 04:45 08/24/16 04:45 08/24/16 04:45 08/24/16 04:45 08/24/16 04:45 General appearance: Present: A&O X 2, no acute distress, obese. Absent: answers questions appropriately - Respiratory Additional comments: She has occasional large airway rhonchi, clears with cough. She has diminished breath sounds but clear afterwards. Oxygen saturation 96% wearing oxygen per nasal cannula - Cardiovascular Cardiovascular exam: Present: RRR, +S1, +S2, systolic murmur (2/6 systolic murmur) - GI/Abdominal GI/Abdominal exam: Present: soft. Absent: tenderness - Extremities Exam Extremities exam: Absent: calf tenderness, pedal edema, tenderness - Neurological Exam Neurological exam: Absent: motor sensory deficit, facial droop, speech deficit Additional comments: See history of present illness for cognitive issues - Skin Additional comments: She has a dressing over the left elbow for her skin tear Internal Medicine: Result - Labs CBC & Chem 7: 08/21/16 05:20 08/21/16 05:20 - VTE Documentation of Mechanical Device: Graduated compression elastic hosiery Consult Discharge Plan - Plan Referrals: Modesta Wang, LOGISTICS LEAD [Advanced Practice Nurse] -
[2016-08-24] MEDS: *HR* GlipiZIDE 5 MG TABLET PO SCH (08:17)
[2016-08-24] MEDS: Venlafaxine XR (24 HR) 75 MG CAP.ER.24H PO SCH (08:17)
[2016-08-24] MEDS: Furosemide 40 MG TABLET PO SCH ×2 (08:17→16:20)
[2016-08-24] MEDS: amLODIPine 5 MG TABLET PO SCH (08:17)
[2016-08-24] MEDS: hydrALAZINE 25 MG TABLET PO SCH ×2 (08:18→16:20)
[2016-08-24] MEDS: Aspirin 81 MG TAB.CHEW PO SCH (08:18)
[2016-08-24] MEDS: Cholecalciferol (D-3) 1,000 UNIT TABLET PO SCH (08:18)
[2016-08-24] MEDS: Budesonide/Formoterol 80/4.5 MDI IH SCH (08:19)
[2016-08-24] MEDS: Albuterol 2.5 MG/3 ML NEBULIZER IH SCH ×3 (09:03→16:20)
[2016-08-24 17:10] VITALS: BP 139/55
== END 2016-08-24 19:18 | DRG 56 ==
LOC: INPGRE 19:45
PROVIDERS: ADMIT Family Medicine; ATTEND Family Medicine